=== PATIENT | female | born 1980 | race Two or more races ===

== ENCOUNTER 2025-01-07 09:52 | Outpatient (REF) | payer MEDICAID, SELFPAY ==
--- NOTE | ~2025-01-07 | XR_ITS ---
EXAMINATION: XR CERVICAL SPINE 2-3 VIEWS HISTORY: PAIN COMPARISON: There are no prior studies for comparison. FINDINGS: AP, lateral, swimmer's, and open-mouth odontoid views of the cervical spine are submitted. Osseous mineralization is normal. Seven cervical vertebral bodies are identified maintaining normal height and alignment without evidence of fracture or subluxation. The intervertebral disc spaces are preserved. The odontoid and lateral masses of C1 are intact. There is no prevertebral soft tissue swelling. XR/XR cervical spine 3V IMPRESSION: Unremarkable examination of the cervical spine. Electronically signed by: Dayron Yap MD 01/07/2025 10:39 AM EDT
--- OUTSIDE RECORDS SUMMARY | 2025-01-07 12:06 | XMS_ITS | Encounter Summary ---
Author Organization [employer] Address [address] [facility] [address] [place] [address] Care Team Providers Care Roll Panner Name Role Phone Unavailable Primary Care Provider Unavailabl e Reason for Visit * Reason Comments Hand Numbness Feet Numbness Encounter Details Date Type Department Care Team (Late st Contact Info) Description 01/07/2025 9:00 AM EDT Office Visit [facility] [address] [place], [place] [id number] Essential hypertension (Primary Dx); Palpitations; Chronic pain of right upper extremity; Paresthesia of right upper and lower extremity; Abnormal mammogram Social History Tobacco Use Types Packs/Day Years Used Date Smoking Tobacco: Never Assessed Comments Unknown Sex and Gender Information Value Date Recorded Sex Assigned at Female 01/07/2025 8:44 AM EDT Legal Sex Female 3:01 PM EST Gender Identity Female 01/07/2025 8:44 AM EDT Sexual Orientation Straight 01/07/2025 8: 44 AM EDT documented as of this encounter Last Filed Vital Signs Vital Sign Reading Time Taken Comments Blood Pressure 135/83 01/07/2025 8:53 AM EDT Pulse 102 01/07/2025 8:53 AM EDT Temperature 36.2 ??C (97.1 ??F) 01/07/2025 8:53 AM ED T Respiratory Rate 18 01/07/2025 8:53 AM EDT Oxygen Saturation 98% 01/07/2025 8:53 AM EDT Inhaled Oxygen Concentration - - Weight 74.8 kg (165 lb) 01/07/2025 8:53 AM EDT Height - - Body Mass Index - - documented in this encounter Plan of Treatment Scheduled Orders Name Type Priority Associated Diagnoses Orde r Schedule XR Cervical Spine 2-3 Views Imaging Routine Chronic pain of right upper extremity Expected: 01/07/2025, Expires: 01/07/2026 documented as of this encounter Visit Diagnoses Diagnosis Essential hypertension- Primary Unspecified essential hypertension Palpitations Chronic pain of right upper extremity Paresthesia of right upper and lower extremity Abnormal mammogram Abnormal mammogram, unspecified documented in this encounter
--- OUTSIDE RECORDS SUMMARY | 2025-01-07 12:06 | XMS_ITS | Clinical Summary ---
Author Organization [employer] Address [address] [place] [address] Care Team Providers Care Coiler Name Role Phone Unavailable Primary Care Provider Unavailabl e Allergies No known active allergies Medications gabapentin (Neurontin) 100 MG capsule Take 1 capsule (100 mg) by mouth at bedtime. 30 capsule 3 01/07/2025 6 Active zolpidem (Ambien) 10 MG tablet Take 1 tablet (10 mg) by mouth if needed at bedtime for sleep. 30 tablet 01/07/2025 5 Active baclofen (Lioresal) 10 MG tablet Take 1 tablet (10 mg) by mouth if needed at bedtime for muscle spasms. 30 tablet 3 01/07/2025 6 Active Encounters Date Type Department Care Team Description 01/07/2025 9:00 AM EDT Office Visit [facility] [address] [place] [address] Essential hypertension (Primary Dx); Palpitations; Chronic pain of right upper extremity; Paresthesia of right upper and lower extremity; Abnormal mammogram from Last 3 Months Social History Tobacco Use Types Packs/Day Years Used Date Smoking Tobacco: Never Assessed Comments Unknown Sex and Gender Information Value Date Recorded Sex Assigned at Female 01/07/2025 8:44 AM EDT Legal Sex Female 3:01 PM EST Gender Identity Female 01/07/2025 8:44 AM EDT Sexual Orientation Straight 01/07/2025 8: 44 AM EDT Last Filed Vital Signs Vital Sign Reading [...] - - Body Mass Index - - Plan of Treatment Health Maintenance Due Date Last Done Comments Depression Screening 1980 HIV Screening 1980 Lipid Panel 1980 SDOH Screening 1980 Alcohol/Substance Use Screening 1992 Tobacco Screening 1992 Family Planning (PISQ) 02/03/1995 Hepatitis C Screening 02/03/1998 DTaP/Tdap/Td Vaccines (1 - Tdap) 02/03/1999 Hepatitis B Vaccines (1 of 3 - 19+ 3-dose series) 02/03/1999 Pap Smear 02/03/2001 Cervical Cancer Screening 02/03/2010 HPV/Cotest 02/03/2010 Mammogram 2020 COVID-19 Vaccine ( - 2023-2 5 season) 2024 Influenza Vaccine (#1) 2024 Zoster Vaccines (1 of 2) 02/03/2030 RSV Patients and Pa tients Aged 60 years or older (1 - 1-dose 75+ series) 02/03/2055 HIB Vaccines Aged Out No longer eligi ble based on patient's age to complete this topic HPV Vaccines Aged Out No longer eligi ble based on patient's age to complete this topic Hepatitis A Vaccines Aged Out No long er eligible based on patient's age to complete this topic IPV Vaccines Aged Out No longer eligi ble based on patient's age to complete this topic Meningococcal Vaccine Aged Out No amy sally eligible based on patient's age to complete this topic Pneumococcal Vaccine: Pediat rics (0 to 5 Years) and At-Risk Patients (6 to 49) Years) Aged Out No longer eligible b ased on patient's age to complete this topic RSV under 20 months Aged Out No longe r eligible based on patient's age to complete this topic Rotavirus Vaccines Aged Out No longer eligible based on patient's age to complete this topic Insurance [facility] C3
== END 2025-01-07 09:53 | disposition home or self-care (01) ==
LOC: HO.HHCX 09:52
PROVIDERS: Visit Provider Family Medicine
DX: M79.601 Pain in right arm (principal); G89.29 Other chronic pain
CPT/HCPCS: 72040

== ENCOUNTER → 2025-01-07 09:54 | Outpatient (BNV) | payer MEDICAID, SELFPAY | PROVIDERS: Visit Provider Radiology Diagnostic Radiology | DX: M54.2 Cervicalgia (principal) | CPT/HCPCS: 72040 ==

== ENCOUNTER 2025-01-08 08:07 | Outpatient (REF) | payer MEDICAID, SELFPAY ==
--- OUTSIDE RECORDS SUMMARY | 2025-01-08 08:14 | XMS_ITS | Encounter Summary ---
Author Organization [employer] Address [address] [facility] [address] [place] [address] Care Team Providers Care Excel Vba Developer Name Role Phone Unavailable Primary Care Provider Unavailabl e Encounter Details Date Type Department Care Team (Late st Contact Info) Description 01/07/2025 Orders Only [facility] [address] [place] [address] Aileen Howard DO [address] [place] [address] Social History Tobacco Use Types Packs/Day Years Used Date Smoking Tobacco: Never Assessed Comments Unknown Sex and Gender Information Value Date Recorded Sex Assigned at Female 01/07/2025 8:44 AM EDT Legal Sex Female 3:01 PM EST Gender Identity Female 01/07/2025 8:44 AM EDT Sexual Orientation Straight 01/07/2025 8: 44 AM EDT documented as of this encounter Plan of Treatment Not on file documented as of this encounter Procedures Procedure Name Priority Date/Time Associated Diagnosis Comments XR CERVICAL SPINE 3V Routine 01/07/2025 9:54 AM EDT documented in this encounter Results * XR CERVICAL SPINE 3V (01/07/2025 9:54 AM EDT) Anatomical Region Laterality Modality Abdomen Radiographic Lynette ging 01/07/2025 9:54 AM EDT Narrative 01/07/2025 10:41 AM EDT ?[facility] ?[address] ?[place] [address] ?XRay Report ? Signed ? Patient: Menendez,Haideliz ?MR#: [id number] ?? [id number] ? : 1980 ?Acct:[id number] ? Age/Sex: 44 / F ?ADM Date: 03/13/25 ? Loc: HO.HHCX ? Attending Dr: Aileen Howard DO ? Ordering Physician: Aileen Howard DO ?? Date of Service: 01/07/25 ?? Procedure(s): XR cervical spine 3V ?? Accession Number(s): [id number] ? cc: Aileen Howard DO ? EXAMINATION: ??XR CERVICAL SPINE 2-3 VIEWS ? HISTORY: PAIN ? COMPARISON: There are no prior studies for comparison. ? FINDINGS: ??AP, lateral, swimmer's, and open-mouth odontoid views of the ?? cervical spine are submitted. ??Osseous mineralization is normal. ??Seven ?? cervical vertebral bodies are identified maintaining normal height and ?? alignment without evidence of fracture or subluxation. ??The ?? intervertebral disc spaces are preserved. ??The odontoid and lateral ?? masses of C1 are intact. ??There is no prevertebral soft tissue swelling. ? XR/XR cervical spine 3V ?? IMPRESSION: ?? Unremarkable examination of the cervical spine. ? Electronically signed by: ??Dayron Yap MD ??01/07/2025 10:39 AM EDT ? Dictated By: ?Dayron Yap MD ? Signed By: ?<Electronically signed by Dayron Yap MD in OV> ?01/07/25 1039 ? DD/ 0954 ? TD/TT: 01/07/25 1000 ? [employer] Team Member: ? Procedure Note Ronnie, Image - 01/07/[address] [address] XRay Report Signed Patient: Margaux MenendezMR#: [id number] : 1980Acct:[id number] Age/Sex: 44 / FADM Date: 01/07/25 Loc: HO.HHCX Attending Dr: Aileen Howard DO Ordering Physician: Aileen Howard DO Date of Service: 01/07/25 Procedure(s): XR cervical spine 3V Accession Number(s): [id number] cc: Aileen Howard DO EXAMINATION: XR CERVICAL SPINE 2-3 VIEWS HISTORY: PAIN COMPARISON: There are no prior studies for comparison. FINDINGS: AP, lateral, swimmer's, and open-mouth odontoid views of the cervical spine are submitted. Osseous mineralization is normal. Seven cervical vertebral bodies are identified maintaining normal height and alignment without evidence of fracture or subluxation. The intervertebral disc spaces are preserved. The odontoid and lateral masses of C1 are intact. There is no prevertebral soft tissue swelling. XR/XR cervical spine 3V IMPRESSION: Unremarkable examination of the cervical spine. Electronically signed by: Dayron Yap MD 01/07/2025 10:39 AM EDT Dictated By: Dayron Yap MD Signed By: <Electronically signed by Dayron Yap MD in OV> 01/07/25 1039 DD/ 0954 TD/TT: 01/07/25 1000 [employer] Team Member: us Aileen Howard DO IMG XR PROCEDURES Edited Res ult - Final documented in this encounter Visit Diagnoses Not on filedocumented in this encounter
--- OUTSIDE RECORDS SUMMARY | 2025-01-08 08:14 | XMS_ITS | Encounter Summary ---
Author Organization [employer] Address [address] [facility] 7t [place] [address] Care Team Providers Care Cupola Melter Name Role Phone Unavailable Primary Care Provider Unavailabl e Reason for Referral * Consultation (Urgent) - Pending Review Specialty Diagnoses / Procedures Referred By Codi littlejohn Referred To Contact Neurology Diagnoses Paresthesia of right upper and lower extremity Paresthesia of tongue Aileen Howard DO [address] [place] [address] Phone: tel: fax: Referral ID Status Reason Start Date Expiration Date Visits Requested Visits Authorized [id number] Pending Review Specialty Services Required 01/07/2025 01/07/2026 1 1 * Neurology (Routine) - Authorized Specialty Diagnoses / Procedures Referred By Codi littlejohn Referred To Contact Diagnoses Paresthesia of right upper and lower extremity Procedures Nerve conduction test Aileen Howard DO [address] [place] [address] Phone: tel: fax: [address] Phone: tel: fax: Referral ID Status Reason Start Date Expiration Date V isits Requested Visits Authorized [id number] Authorized 01/07/2025 01/07/2026 1 1 * Neurology (Routine) - Authorized Specialty Diagnoses / Procedures Referred By Codi littlejohn Referred To Contact Diagnoses Paresthesia of right upper and lower extremity Procedures EMG Aileen Howard DO [address] [place] [address] Phone: tel: fax: [address] Phone: tel: fax: Referral ID Status Reason Start Date Expiration Date V isits Requested Visits Authorized [id number] Authorized 01/07/2025 01/07/2026 1 1 * Imaging (Routine) - Authorized Specialty Diagnoses / Procedures Referred By Contac t Referred To Contact Radiology Diagnoses Abnormal mammogram Procedures BI Mammogram Diagnostic Tomosynthesis Bilateral Aileen Howard DO [address] [place] [address] Phone: tel: fax: [address] Phone: tel: fax: Referral ID Status Reason Start Date Expiration Date V isits Requested Visits Authorized [id number] Authorized 01/07/2025 01/07/2026 1 1 * Consultation (Routine) - Pending Review Specialty Diagnoses / Procedures Referred By Contac t Referred To Contact Vascular Surgery Diagnoses PVD (peripheral vascular disease) ([facility]) Aileen Howard DO [address] [place] [address] Phone: tel: fax: Referral ID Status Reason Start Date Expiration Date Visits Requested Visits Authorized [id number] Pending Review Specialty Services Required 01/07/2025 01/07/2026 1 1 * Cardiology (Routine) - Authorized Specialty Diagnoses / Procedures Referred By Contac t Referred To Contact Cardiology Diagnoses Palpitations Procedures Holter monitor - 24 hour Aileen Howard DO [address] [place] [address] Phone: tel: fax: [address] Phone: tel: fax: Referral ID Status Reason Start Date Expiration Date V isits Requested Visits Authorized [id number] Authorized 01/07/2025 01/07/2026 1 1 * Imaging (Routine) - Authorized Specialty Diagnoses / Procedures Referred By Contac t Referred To Contact Cardiology Diagnoses Palpitations Procedures Transthoracic Echo (TTE) Complete Aileen Howard DO [address] [place] [address] Phone: tel: fax: [address] Phone: tel: fax: Referral ID Status Reason Start Date Expiration Date Visits Requested Visits Authorized [id number] Authorized Perform Procedure 01/07/2025 01/07/2026 1 1 * Imaging (Routine) - Authorized Specialty Diagnoses / Procedures Referred By Contac t Referred To Contact Radiology Diagnoses Chronic pain of right upper extremity Procedures MR Cervical Spine w/o Contrast Aileen Howard DO [address] [place] [address] Phone: tel: fax: [address] Phone: tel: fax: Referral ID Status Reason Start Date Expiration Date V isits Requested Visits Authorized [id number] Authorized 01/07/2025 01/07/2026 1 1 * Imaging (Routine) - Authorized Specialty Diagnoses / Procedures Referred By Codi t Referred To Contact Radiology Diagnoses Paresthesia of right upper and lower extremity Paresthesia of tongue Procedures MR Brain w/o Contrast Aileen Howard DO [address] [place] [address] Phone: tel: fax: [facility] [address] [place] [address] Phone: tel: fax: Referral ID Status Reason Start Date Expiration Date V isits Requested Visits Authorized [id number] Authorized 01/07/2025 01/07/2026 1 1 Reason for Visit * Reason Comments Hand Numbness Feet Numbness Encounter Details Date Type Department Care Team (Late st Contact Info) Description 01/07/2025 9:00 AM EDT Office Visit [facility] [address] [place] [address] Essential hypertension (Primary Dx); Prediabetes; Palpitations; Chronic pain of right upper extremity; Paresthesia of right upper and lower extremity; Paresthesia of tongue; Abnormal mammogram; PVD (peripheral vascular disease) ([facility]) Social History Tobacco Use Types Packs/Day Years [...] Scheduled Orders Name Type Priority Associated Diagnoses Order Schedule XR Cervical Spine 2-3 Views Imaging Routine Chronic pain of right upper extremity Expected: 01/07/2025, Expires: 01/07/2026 T4, Free Lab Routine Essential hypertension Palpitations Chronic pain of right upper extremity Paresthesia of right upper and lower extremity Abnormal mammogram Expected: 01/07/2025 (Approximate), Expires: 01/07/2026 Vitamin D, 25-Hydroxy, Total, Immunoassay Lab Routine Essential hypertension Palpitations Chronic pain of right upper extremity Paresthesia of right upper and lower extremity Abnormal mammogram Expected: 01/07/2025 (Approximate), Expires: 01/07/2026 Lipid Panel, Standard Lab Routine Essential hypertension Palpitations Chronic pain of right upper extremity Paresthesia of right upper and lower extremity Abnormal mammogram Expected: 01/07/2025 (Approximate), Expires: 01/07/2026 TSH Lab Routine Essential hypertension Palpitations Chronic pain of right upper extremity Paresthesia of right upper and lower extremity Abnormal mammogram Expected: 01/07/2025 (Approximate), Expires: 01/07/2026 Hepatic Function Panel Lab Routine Essential hypertension Palpitations Chronic pain of right upper extremity Paresthesia of right upper and lower extremity Abnormal mammogram Expected: 01/07/2025 (Approximate), Expires: 01/07/2026 Hemoglobin A1c Lab Routine Essential hypertension Palpitations Chronic pain of right upper extremity Paresthesia of right upper and lower extremity Abnormal mammogram Expected: 01/07/2025 (Approximate), Expires: 01/07/2026 Basic Metabolic Panel Lab Routine Essential hypertension Palpitations Chronic pain of right upper extremity Paresthesia of right upper and lower extremity Abnormal mammogram Expected: 01/07/2025 (Approximate), Expires: 01/07/2026 Albumin, Random Urine W/Creatinine Lab Routine Essential hypertension Palpitations Chronic pain of right upper extremity Paresthesia of right upper and lower extremity Abnormal mammogram Expected: 01/07/2025 (Approximate), Expires: 01/07/2026 Hepatitis B surface antigen, EIA Lab Routine Essential hypertension Palpitations Chronic pain of right upper extremity Paresthesia of right upper and lower extremity Abnormal mammogram Expected: 01/07/2025 (Approximate), Expires: 01/07/2026 Chlamydia/N. Gonorrhoeae RNA, TMA, Urogenitial Microbiology Routine Essential hypertension Palpitations Chronic pain of right upper extremity Paresthesia of right upper and lower extremity Abnormal mammogram Ordered: 01/07/2025 HIV-1/2 Antigen and Antibodies, Fourth Generation, with Reflexes Lab Routine Essential hypertension Palpitations Chronic pain of right upper extremity Paresthesia of right upper and lower extremity Abnormal mammogram Expected: 01/07/2025 (Approximate), Expires: 01/07/2026 Hepatitis C Antibody with Reflex to HCV, RNA, Quantitative, Real-Time PCR Lab Routine Essential hypertension Palpitations Chronic pain of right upper extremity Paresthesia of right upper and lower extremity Abnormal mammogram Expected: 01/07/2025, Expires: 01/07/2026 RPR (Monitor) with Reflex to??Titer Lab Routine Essential hypertension Palpitations Chronic pain of right upper extremity Paresthesia of right upper and lower extremity Abnormal mammogram Expected: 01/07/2025, Expires: 01/07/2026 Hepatitis B Surface Antibody, Qualitative Lab Routine Essential hypertension Palpitations Chronic pain of right upper extremity Paresthesia of right upper and lower extremity Abnormal mammogram Expected: 01/07/2025 (Approximate), Expires: 01/07/2026 Hepatitis A Antibody, Total Lab Routine Essential hypertension Palpitations Chronic pain of right upper extremity Paresthesia of right upper and lower extremity Abnormal mammogram Expected: 01/07/2025 (Approximate), Expires: 01/07/2026 Hepatitis B Core Antibody, Total Lab Routine Essential hypertension Palpitations Chronic pain of right upper extremity Paresthesia of right upper and lower extremity Abnormal mammogram Expected: 01/07/2025 (Approximate), Expires: 01/07/2026 Vitamin B12 (Cobalamin) and Folate Panel, Serum Lab Routine Essential hypertension Palpitations Chronic pain of right upper extremity Paresthesia of right upper and lower extremity Abnormal mammogram Expected: 01/07/2025, Expires: 01/07/2026 Ferritin Lab Routine Essential hypertension Palpitations Chronic pain of right upper extremity Paresthesia of right upper and lower extremity Abnormal mammogram Expected: 01/07/2025, Expires: 01/07/2026 Iron And Total Iron Binding Capacity Lab Routine Essential hypertension Palpitations Chronic pain of right upper extremity Paresthesia of right upper and lower extremity Abnormal mammogram Expected: 01/07/2025, Expires: 01/07/2026 CBC auto differential Lab Routine Essential hypertension Palpitations Chronic pain of right upper extremity Paresthesia of right upper and lower extremity Abnormal mammogram Expected: 01/07/2025 (Approximate), Expires: 01/07/2026 MR Brain w/o Contrast Imaging Routine Paresthesia of right upper and lower extremity Paresthesia of tongue Expected: 01/07/2025, Expires: 01/07/2026 MR Cervical Spine w/o Contrast Imaging Routine Chronic pain of right upper extremity Expected: 01/07/2025, Expires: 01/07/2026 Transthoracic Echo (TTE) Complete Echocardiography Routine Palpitations Expected: 01/07/2025 (Approximate), Expires: 01/07/2027 Holter monitor - 24 hour Cardiac Services Routine Palpitations Expected: 01/07/2025 (Approximate), Expires: 01/07/2027 BI Mammogram Diagnostic Tomosynthesis Bilateral Imaging Routine Abnormal mammogram Expected: 01/07/2025, Expires: 03/09/2026 EMG Neurology Routine Paresthesia of right upper and lower extremity Expected: 01/07/2025 (Approximate), Expires: 01/07/2026 Nerve conduction test Neurology Routine Paresthesia of right upper and lower extremity Expected: 01/07/2025 (Approximate), Expires: 01/07/2026 Scheduled Referrals Name Type Priority Associated Diagnoses Orde r Schedule Referral to Vascular Surgery Outpatient Referral Routine PVD (peripheral vascular disease) ([facility]) Expected: 01/07/2025 (Approximate), Expires: 01/07/2026 Referral to Neurology Outpatient Referral Urgent Paresthesia of right upper and lower extremity Paresthesia of tongue Expected: 01/07/2025 (Approximate), Expires: 01/07/2026 documented as of this encounter Visit Diagnoses Diagnosis Essential hypertension- Primary Unspecified essential hypertension Prediabetes Other abnormal glucose Palpitations Chronic pain of right upper extremity Paresthesia of right upper and lower extremity Paresthesia of tongue Abnormal mammogram Abnormal mammogram, unspecified PVD (peripheral vascular disease) ([facility]) Unspecified peripheral vascular disease documented in this encounter
--- OUTSIDE RECORDS SUMMARY | 2025-01-08 08:14 | XMS_ITS | Clinical Summary ---
Author Organization [employer] Address [address] [facility] 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 30 tablet 3 01/07/2025 6 Active lisinopril-hydr oCHLOROthiazide (Zestoretic) 10-12.5 MG tablet Take 1 tablet by mouth Once per day. 30 tablet 3 01/07/2025 6 Active omeprazole OTC (PriLOSEC OTC) 20 MG EC tablet Take 1 tablet (20 mg) by mouth before breakfast. Do not crush, chew, or split. 30 tablet 3 01/07/2025 6 Active cilostazol (Pletal) 50 MG tablet Take 1 tablet (50 mg) by mouth 2 times daily. 60 tablet 3 01/07/2025 6 Active hydrOXYzine pamoate (Vistaril) 25 MG capsule Take 1 capsule (25 mg) by mouth if needed at bedtime for anxiety (insomnia) for up to 10 days. 30 capsule 3 01/07/2025 5 Active nabumetone (Relafen) 500 MG tablet Take 1 tablet (500 mg) by mouth if needed in the morning and at bedtime for mild pain. 60 tablet 1 01/07/2025 Active aspirin 81 MG chewable tablet Chew 1 tablet (81 mg) Once per day. 30 tablet 3 01/07/2025 Active atorvastatin (Lipitor) 40 MG tablet Take 1 tablet (40 mg) by mouth at bedtime. 30 tablet 3 01/07/2025 Active Encounters Date Type Department Care Team Description 01/07/2025 9:00 AM EDT Office Visit [facility] [address] [place] [id number] Essential hypertension (Primary Dx); Prediabetes; Palpitations; Chronic pain of right upper extremity; Paresthesia of right upper and lower extremity; Paresthesia of tongue; Abnormal mammogram; PVD (peripheral vascular disease) ([facility]) 01/07/2025 Orders Only [facility] [address] [place] [id number] Aileen Howard DO from Last 3 Months Social History Tobacco [...] Date Last Done Comments Depression Screening 1980 Diabetes: Hemoglobin A1C 1980 HIV Screening 1980 Lipid Panel 1980 SDOH Screening 1980 Alcohol/Substance Use Screening 1992 Tobacco Screening 1992 Family Planning (PISQ) 02/03/1995 Hepatitis C Screening 02/03/1998 DTaP/Tdap/Td Vaccines (1 - Tdap) 02/03/1999 Hepatitis B Vaccines (1 of 3 - 19+ 3-dose series) 02/03/1999 Pap Smear 02/03/2001 Cervical Cancer Screening 02/03/2010 HPV/Cotest 02/03/2010 Mammogram 2020 COVID-19 Vaccine (1 - 2023-2 5 season) 2024 Influenza Vaccine [...] on patient's age to complete this topic Procedures Procedure Name Priority Date/Time Associated Diagnosis Comments XR CERVICAL SPINE 3V Routine 01/07/2025 9:54 AM EDT from Last 3 Months Results * XR CERVICAL SPINE 3V (01/07/2025 9:54 AM EDT) Anatomical Region Laterality Modality Abdomen Radiographic Lynette ging 01/07/2025 9:54 AM EDT Narrative 01/07/2025 10:41 AM EDT ?[facility] [place] [facility] ?[address] ?[place] [address] ?XRay Report ? Signed ? Patient: Menendez,Haideliz ?MR#: [id number] ?? [id number] ? : 1980 ?Acct:[id number] ? Age/Sex: 44 / F ?ADM Date: 01/07/25 ? Loc: HO.HHCX ? Attending Dr: Aileen Howard DO ? Ordering Physician: Aileen Howard DO ?? Date of Service: 01/07/25 ?? Procedure(s): XR cervical spine 3V ?? Accession Number(s): [id number] ? cc: Aileen Howard DO ? EXAMINATION: [...] DD/ 0954 ? TD/TT: 01/07/25 1000 ? Loan Representative: ? Procedure Note Dimitri Trujillo - 01/07/[address] [address] XRay Report Signed Patient: Maureen Menendez#: [id number] : 1980Acct:[id number] Age/Sex: 44 / FADM Date: 01/07/25 Loc: HO.HHCX Attending Dr: Aileen Howard DO Ordering Physician: Aileen Howard DO Date of Service: 01/07/25 Procedure(s): XR cervical spine 3V Accession Number(s): [id number] cc: Aileen Howard DO EXAMINATION: XR CERVICAL [...] 01/07/25 1039 DD/ 0954 TD/TT: 01/07/25 1000 Loan Representative: Aileen Howard DO IMG XR PROCEDURES Edited Res ult - Final from Last 3 Months Insurance [facility] C3
[2025-01-08 11:23] LABS: MANUAL DIFF FLAG NO
[2025-01-08 11:39] LABS: Basophils Percent Auto 0.4 % (0-2); Eosinophils Absolute Auto 0.2 X10*3/uL (0.0-0.4); Eosinophils Percent Auto 1.4 % (0-4); Hemoglobin 12.3 g/dl (12.0-16.0); Imm Gran Abs Auto 0.04 X10*3/uL (0.00-0.03); Imm Gran Pct Auto 0.4 % (0.0-0.4); Lymphocytes Absolute Auto 1.7 X10*3/uL (1.2-4.9); Lymphocytes Percent Auto 16.2 % (20-40); Mean Corpuscular Hemoglobin 23.9 pg (27.0-33.0); Mean Corpuscular Volume 79.8 fL (80.0-98.0); Mean Platelet Volume 10.6 fL (9.4-12.3); Monocytes Absolute Auto 0.6 X10*3/uL (0.1-1.2); Neutrophils Absolute Auto 7.9 x10*3/uL (2.0-8.3); Neutrophils Percent Auto 75.6 % (45-73); Platelet Count 431 X10*3/uL (160-400); Red Blood Count 5.14 X10*6/uL (4.20-5.50); Red Cell Distribution Width 14.7 % (11.0-16.0); White Blood Count 10.4 X10*3/uL (4.8-10.8)
[2025-01-08 11:46] LABS: Estimated Average Glucose 126 mg/dL
[2025-01-08 12:09] LABS: Alanine Aminotransferase 20 U/L (0-31); Albumin Level 4.2 g/dL (3.5-5.0); Alkaline Phosphatase 91 U/L (39-117); Anion Gap 12 (12-20); Aspartate Amino Transferase 18 U/L (5-31); Bilirubin Direct 0.3 mg/dL (0.0-0.5); Bilirubin Total 0.9 mg/dL (0.0-1.0); Blood Urea Nitrogen 19 mg/dL (9-16); Calcium 9.3 mg/dL (8.4-10.2); Carbon Dioxide 28 mmol/L (22-29); Chloride 104 mmol/L (96-108); Cholesterol 200 mg/dL (<200); Estimated Glomerular Filt Rate > 60; Glucose Random 130 mg/dL (60-115); HDL Cholesterol 60 mg/dL (>40); Iron 45 mcg/dL (30-160); LDL Cholesterol Calculated 125 mg/dL (<100); Percent Iron Saturation 13 % (15-50); Potassium 4.2 mmol/L (3.3-5.1); Sodium 140 mmol/L (135-145); Total Iron Binding Capacity 340 mcg/dL (228-428); Total Protein 7.9 g/dL (6.5-8.0); Triglycerides 77 mg/dL (<150); Unsaturated Iron Binding 295 ug/dL
[2025-01-08 12:12] LABS: Ferritin 25 ng/mL (10-250); Free T4 (Free Thyroxine) 0.91 ng/dL (0.71-1.85); Thyroid Stimulating Hormone 2.39 uIU/mL (0.32-4.0); Vitamin D 25-OH Total 41.9 ng/mL (>30)
[2025-01-08 12:25] LABS: Folate 14.3 ng/mL (> or = 4.0); Vitamin B12 678 pg/mL (200-900)
[2025-01-08 12:26] LABS: Creatinine Urine 140.84 mg/dL; Microalbum/Creatinine Ratio Ur 9.2 ug/mg cr (<30)
[2025-01-08 12:33] LABS: HBS Num1 0.44 mIU/mL (0-7.99); HBsAGNum1 0.27 S/CO (0.00-0.99); Hepatitis B Surface Antigen Negative (Negative); ~Hepatitis B Surface Antibody NONREACTIVE (Nonreactive)
[2025-01-08 12:50] LABS: HBc Num1 0.12 S/CO (0.00-0.79); HIV AB/AG Nonreactive (Nonreactive); HIV Num 1 0.07 S/CO (0.00-0.99); Hepatitis B Core Antibody Nonreactive (Nonreactive); ~HepC Num1 0.07 S/CO (0.00-0.79); ~Hepatitis C Antibody Nonreactive (Nonreactive)
[2025-01-08 14:27] LABS: CT PCR NOT DETECTED (Not Detect.); NG PCR NOT DETECTED (Not Detect.)
[2025-01-10 14:28] LABS: RPR Rapid Plasma Reagin NON-REACTIVE (NON-REACTIVE)
[2025-01-13 08:50] LABS: Hepatitis A Antibody IgG Nonreactive (Nonreactive); ~Hepatitis A Antibody IgG 0.17 S/CO (0.00-0.99)
== END 2025-01-08 08:08 | disposition home or self-care (01) ==
LOC: HO.HHCL 08:07
PROVIDERS: Visit Provider Family Medicine
DX: I10 Essential (primary) hypertension (principal); R00.2 Palpitations; M79.601 Pain in right arm; G89.29 Other chronic pain; R20.2 Paresthesia of skin; R92.8 Other abnormal and inconclusive findings on diagnostic imaging of breast
CPT/HCPCS: 80048; 80061; 80076; 82043; 82306; 82570; 82607; 82728; 82746; 83036; 83540; 84439; 84443; 85025; 86592; 86704; 86706; 86708; 86803; 87340; 87389; 87491; 87591

== ENCOUNTER 2025-01-12 18:54 | Outpatient (REF) | payer MEDICAID, SELFPAY ==
--- NOTE | ~2025-01-12 | MR_ITS ---
EXAMINATION: MR BRAIN WITHOUT CONTRAST CLINICAL INFORMATION: Intermittent episodes of numbness right hemibody and tone paresthesia. COMPARISON: None available. TECHNIQUE: MRI of the brain was obtained using routine sequences without contrast. FINDINGS: No acute intracranial hemorrhage, mass effect, midline shift, hydrocephalus or herniation. Jeronimo-white matter differentiation is normal. No restricted diffusion. Posterior cranial fossa contents demonstrated no signal abnormality or gross masses flow-void signal within the main cerebral vessels is normal. Sellar/suprasellar region demonstrated no signal abnormality or masses. Midline structures are normal. Craniocervical junction is intact and normal. No signal abnormality or gross masses in the intraconal or extraconal compartments of the orbits. There is slight asymmetric prominent of the left lacrimal gland. Trace of fluid in the preseptal orbits, left greater than right. MR/MR head/brain wo con IMPRESSION: No acute or structural brain abnormality. Prominent lacrimal glands. These could be seen patients with sarcoidosis among other etiologies. Electronically signed by: Octaviano Dinh MD 01/13/2025 08:48 AM EDT
--- NOTE | ~2025-01-12 | MR_ITS ---
EXAMINATION: MR CERVICAL SPINE WITHOUT CONTRAST CLINICAL INFORMATION: Pain, weakness and numbness in the right hemibody. COMPARISON: None available. TECHNIQUE: MRI of the cervical spine was obtained using routine sequences without contrast. FINDINGS: Craniocervical junction is intact. Bone marrow signal is normal. The alignment is normal. The cervical spinal cord caliber and signal is normal. C2-3: No disc herniation. No neuroforamina stenosis. C3-4: No disc herniation. No neuroforamina stenosis. C4-5: No disc herniation. No neuroforamina stenosis. C5-6: No disc herniation. No neuroforamina stenosis. C6-7: No disc herniation. No neuroforamina stenosis. C7-T1: No disc herniation. No neuroforamina stenosis. T1-2: No disc herniation. No neuroforamina stenosis. No prevertebral compartment hematoma, mass or fluid collection. Flow-void signal within the main vessels is normal. Codominant vertebral arteries. No specific mild prominent cervical lymph nodes. MR/MR cervical spine wo con IMPRESSION: Normal MRI cervical spine. Nonspecific prominent cervical lymph nodes.. Electronically signed by: Octaviano Dinh MD 01/13/2025 08:53 AM EDT
--- OUTSIDE RECORDS SUMMARY | 2025-01-12 19:03 | XMS_ITS | Encounter Summary ---
Author Organization [employer] Address [address] [facility] [address] [place] [address] Care Team Providers Care Supervisor Frame Sample And Pattern Name Role Phone Unavailable Primary Care Provider Unavailabl e Reason for Visit * Reason Onset Date Comments New patient appointment 01/12/2025 Pt walke d in requesting a new patient appt . Pt was seen by in walk in on 01/07/2025 and states told her she is willing to take her as a new patient due to her conditions . Pt can be reached at [phone]. Encounter Details Date Type Department Care Team ([facility] Contact Info) Description 01/12/2025 Telephone [facility] [address] [place], [place] [phone] Aileen Howard DO [address] [place], [place] [phone] New patient appointment (Pt walked in requesting a new patient appt . Pt was seen by in walk in on 01/07/2025 and states told her she is willing to take her as a new patient due to her conditions . Pt can be reached at [phone].) Social History Tobacco Use Types Packs/Day Years Used Date Smoking Tobacco: Never Assessed Comments Unknown Sex and Gender Information Value Date Recorded Sex Assigned at Female 01/07/2025 8:44 AM EDT Legal Sex Female 3:01 PM EST Gender Identity Female 01/07/2025 8:44 AM EDT Sexual Orientation Straight 01/07/2025 8: 44 AM EDT documented as of this encounter Miscellaneous Notes * Telephone Encounter - Sarai Hinton - 01/12/2025 12:[address] Howard has zero availabilities. Patient will be contacted as soon as an appt becomes available. * Telephone Encounter - Fiordaliza Rachel - 01/12/2025 11:35 AM EDT Pt walked in requesting a new patient appt . Pt was seen by in walk in on 01/07/2025 and states told her she is willing to take her as a new patient due to her conditions . Pt can be reached at [phone]. documented in this encounter Plan of Treatment Not on file documented as of this encounter Visit Diagnoses Not on filedocumented in this encounter
--- OUTSIDE RECORDS SUMMARY | 2025-01-12 19:04 | XMS_ITS | Clinical Summary ---
Author Organization [employer] Address [address] [place] [address] Care Team Providers Care Floorperson Name Role Phone Unavailable Primary Care Provider [...] Encounters Date Type Department Care Team Description 01/12/2025 Telephone [facility] [address] [place] [phone] Aileen Howard DO New patient appointment (Pt walked in requesting a new patient appt . Pt was seen by in walk in on 01/07/2025 and states told her she is willing to take her as a new patient due to her conditions . Pt can be reached at [phone].) 01/07/2025 9:00 AM EDT Office Visit [facility] [address] [place] [phone] Essential hypertension (Primary Dx); Prediabetes; Palpitations; Chronic pain of right upper extremity; Paresthesia of right upper and lower extremity; Paresthesia of tongue; Abnormal mammogram; PVD (peripheral vascular disease) ([facility]) 01/07/2025 Orders Only [facility] [address] [place] [phone] Aileen Howard DO from Last 3 Months [...] Date Last Done Comments Depression Screening 1980 SDOH Screening 1980 Alcohol/Substance Use Screening 1992 Tobacco Screening 1992 Family Planning (PISQ) 02/03/1995 DTaP/Tdap/Td Vaccines (1 - Tdap) 02/03/1999 Hepatitis B Vaccines (1 of 3 - 19+ 3-dose series) 02/03/1999 Pap Smear 02/03/2001 Cervical Cancer Screening 02/03/2010 HPV/Cotest 02/03/2010 Mammogram 2020 COVID-19 Vaccine ( - 2023-2 5 season) 2024 Influenza Vaccine (#1) 2024 Diabetes: Hemoglobin A1C 01/08/2026 01/08/2025 Lipid Panel 01/08/2030 01/08/2025 Zoster Vaccines (1 of 2) 02/03/2030 RSV Patients and Pa tients Aged 60 years or older (1 - 1-dose 75+ series) 02/03/2055 HIV Screening Completed 01/08/2025 Hepatitis C Screening Completed 01/08/2025 HIB Vaccines Aged Out No longer eligi [...] to 49) Years) Aged Out No longer elig ible based on patient's age to complete this topic RSV under 20 months Aged Out No longe r eligible based on patient's age to complete this topic Rotavirus Vaccines Aged Out No longer eligible based on patient's age to complete this topic Procedures Procedure Name Priority Date/Time Associated Diagnosis Comments CBC WITH AUTO DIFFERENTIAL Routine 01/08/2025 8:10 AM EDT Essential hypertension Palpitations Chronic pain of right upper extremity Paresthesia of right upper and lower extremity Abnormal mammogram IRON AND TOTAL IRON BINDING CAPACITY Routine 01/08/2025 8:10 AM EDT Essential hypertension Palpitations Chronic pain of right upper extremity Paresthesia of right upper and lower extremity Abnormal mammogram FERRITIN Routine 01/08/2025 8:10 AM EDT Essential hypertension Palpitations Chronic pain of right upper extremity Paresthesia of right upper and lower extremity Abnormal mammogram VITAMIN B12/FOLATE, SERUM PANEL Routine 01/08/2025 8:10 AM EDT Essential hypertension Palpitations Chronic pain of right upper extremity Paresthesia of right upper and lower extremity Abnormal mammogram HEPATITIS B CORE AB TOTAL Routine 01/08/2025 8:10 AM EDT Essential hypertension Palpitations Chronic pain of right upper extremity Paresthesia of right upper and lower extremity Abnormal mammogram HEPATITIS B SURFACE ANTIBODY, QUALITATIVE Routine 01/08/2025 8:10 AM EDT Essential hypertension Palpitations Chronic pain of right upper extremity Paresthesia of right upper and lower extremity Abnormal mammogram RPR (MONITOR) W/REFL TITER Routine 01/08/2025 8:10 AM EDT Essential hypertension Palpitations Chronic pain of right upper extremity Paresthesia of right upper and lower extremity Abnormal mammogram HEPATITIS C AB W/REFL TO HCV RNA, QN, PCR Routine 01/08/2025 8:10 AM EDT Essential hypertension Palpitations Chronic pain of right upper extremity Paresthesia of right upper and lower extremity Abnormal mammogram HIV 1/2 ANTIGEN/ANTIBODY, FOURTH GENERATION W/RFL Routine 01/08/2025 8:10 AM EDT Essential hypertension Palpitations Chronic pain of right upper extremity Paresthesia of right upper and lower extremity Abnormal mammogram HEPATITIS B SURFACE ANTIGEN, EIA Routine 01/08/2025 8:10 AM EDT Essential hypertension Palpitations Chronic pain of right upper extremity Paresthesia of right upper and lower extremity Abnormal mammogram ALBUMIN, RANDOM URINE W/CREATININE Routine 01/08/2025 8:10 AM EDT Essential hypertension Palpitations Chronic pain of right upper extremity Paresthesia of right upper and lower extremity Abnormal mammogram BASIC METABOLIC PANEL Routine 01/08/2025 8:10 AM EDT Essential hypertension Palpitations Chronic pain of right upper extremity Paresthesia of right upper and lower extremity Abnormal mammogram HEMOGLOBIN A1C Routine 01/08/2025 8:10 AM EDT Essential hypertension Palpitations Chronic pain of right upper extremity Paresthesia of right upper and lower extremity Abnormal mammogram HEPATIC FUNCTION PANEL Routine 01/08/2025 8:10 AM EDT Essential hypertension Palpitations Chronic pain of right upper extremity Paresthesia of right upper and lower extremity Abnormal mammogram TSH Routine 01/08/2025 8:10 AM EDT Essential hypertension Palpitations Chronic pain of right upper extremity Paresthesia of right upper and lower extremity Abnormal mammogram LIPID PANEL, STANDARD Routine 01/08/2025 8:10 AM EDT Essential hypertension Palpitations Chronic pain of right upper extremity Paresthesia of right upper and lower extremity Abnormal mammogram VITAMIN D,25-OH,TOTAL,IA Routine 01/08/2025 8:10 AM EDT Essential hypertension Palpitations Chronic pain of right upper extremity Paresthesia of right upper and lower extremity Abnormal mammogram T4, FREE Routine 01/08/2025 8:10 AM EDT Essential hypertension Palpitations Chronic pain of right upper extremity Paresthesia of right upper and lower extremity Abnormal mammogram CHLAMYDIA/N. GONORRHOEAE RNA, TMA, UROGENITAL Routine 01/08/2025 8:10 AM EDT Essential hypertension Palpitations Chronic pain of right upper extremity Paresthesia of right upper and lower extremity Abnormal mammogram XR CERVICAL SPINE 3V Routine 01/07/2025 9:54 AM EDT from Last 3 Months Results * Vitamin D, 25-Hydroxy, Total, Immunoassay (01/08/2025 8:10 AM EDT) Vitamin D 25-OH Total 41.9 >30 ng/mL [facility] Comment: Health Based Reference Values*< 20 ??ng/mL ??[id number] ng/mL ??Insufficient> 30 ??ng/mL ??Sufficient*Britni FLORES. N Engl J Med. 2007;357:266-280There is no well-established upper level of normal vitamin Dlevels. Some laboratories use 50 ng/mL as an upper limit ofnormal. However, toxicity is patient-dependent and may occurat any level. Careful correlation with the patient'spresentation is necessary and, if there is concern forvitamin D toxicity, treatment should be consideredirrespective of the serum level.Care must be taken in interpreting Vitamin D results fromdifferent laboratories and methodologies. ??Published datademonstrated that results from patients undergoinghemodialysis may show a negative bias when tested withvarious automated 25-OH vitamin D assays when compared toLC- MS/MS.When testing samples from patients whose predominant form ofVitamin D is Vitamin D2, such as patients receiving VitaminD2 supplementation, results that are subtherapeutic shouldbe confirmed with another method such as LC-MS/MS. Blood Venous blood specimen / Unknown 01/08/2025 8:10 AM EDT 01/08/2025 11:15 AM EDT us Aileen Howard DO LAB BLOOD ORDERABLES Final R esult [facility] [address] [place] [phone] * Vitamin B12 (Cobalamin) and Folate Panel, Serum (01/08/2025 8:10 AM EDT) Vitamin B12 678 200 - 900 pg/mL [facility] Comment:NORMAL 200-900 PG/ML INDETERMINATE 160-199 PG/ML DEFICIENT < 160 PG/ML Folate 14.3 > or = 4.0 ng/mL [facility] Comment:Reference Values:> o r = 4.0 ng/mL< 4.0 ng/mL suggests folate deficiency Methotrexate, aminopterin and folinic acid(leucovorin) are chemotherapeutic agents whose molecularstructures are similar to folate; therefore, the Architectfolate assay cannot be used for patients using these drugs. Blood 01/08/2025 8:10 AM EDT 01/08/2025 11:15 AM EDT Aileen Howard LAB BLOOD ORDERABLES Final R esult Performing Organization Address [facility] de Phone Number [facility] [address] [place] [address] [phone] * Albumin, Random Urine W/Creatinine (01/08/2025 8:10 AM EDT) Creatinine, Urine 140.84 mg/dL [facility] Microalbumin Urine 13.0 mg/L [facility] Microalbum Creatinine Ratio Ur 9.2 <30 ug/mg cr [facility] Comment:Albumin/Creatinine R atio Reference Ranges: Normal: < 30 ug/mg creatinine Microalbuminuria: 30 - 300 ug/mg creatinineClinical Albuminuria: > 300 ug/mg creatinine Urine (Urine, Random) 01/08/2025 8:10 AM EDT 01/08/2025 11:14 AM EDT Aileen Howard DO LAB URINE ORDERABLES Final R esult Performing Organization Address [facility] Co de Phone Number [facility] [address] [place] [phone] * (ABNORMAL) CBC auto differential (01/08/2025 8:10 AM EDT) White Blood Count 10.4 4.8 - 10.8 X10*3/uL [facility] Red Blood Count 5.14 4.20 - 5.50 X10*6/uL [facility] Hemoglobin 12.3 12.0 - 16.0 g/dl [facility] Hematocrit 41.0 37.0 - 47.0 % [facility] Mean Corpuscular Volume 79.8(L) 80.0 - 98.0 fL [facility] Mean Corpuscular Hemoglobin 23.9(L) 27.0 - 33.0 pg [facility] Mean Corpuscular HGB Conc 30.0(L) 31.0 - 35.0 g/dl [facility] Red Cell Distribution Width 14.7 11.0 - 16.0 % [facility] Platelet Count 431(H) 160 - 400 X10*3/uL [facility] Mean Platelet Volume 10.6 9.4 - 12.3 fL [facility] Neutrophils Percent Auto 75.6(H) 45 - 73 % [facility] Imm Gran Pct Auto 0.4 0.0 - 0.4 % [facility] Lymphocytes Percent Auto 16.2(L) 20 - 40 % [facility] Monocytes Percent Auto 6.0 2 - 11 % [facility] Eosinophils Percent Auto 1.4 0 - 4 % [facility] Basophils Percent Auto 0.4 0 - 2 % [facility] NRBC Pct Auto 0.0 0.0 - 0.2 /100WBC [facility] Neutrophils Absolute Auto 7.9 2.0 - 8.3 x10*3/uL [facility] Imm Gran Abs Auto 0.04(H) 0.00 - 0.03 X10*3/uL [facility] Lymphocytes Absolute Auto 1.7 1.2 - 4.9 X10*3/uL [facility] Monocytes Absolute Auto 0.6 0.1 - 1.2 X10*3/uL [facility] Eosinophils Absolute Auto 0.2 0.0 - 0.4 X10*3/uL [facility] Basophils Absolute Auto 0.0 0.0 - 0.2 X10*3/uL [facility] NRBC Abs Auto 0.000 0.0 - 0.012 X10*3/uL [facility] Blood Venous blood specimen / Unknown 01/08/2025 8:10 AM EDT 01/08/2025 11:15 AM EDT Aileen Howard DO LAB BLOOD ORDERABLES Final R esult Performing Organization Address [facility]/ZIP Co de Phone Number [facility] [address] [place] [phone] * Hepatitis C Antibody with Reflex to HCV, RNA, Quantitative, Real-Time PCR (01/08/2025 8:10 AM EDT) Hepatitis C Antibody Nonreactive Nonreactive [facility] Comment:Antibodies to HCV no t detected; does not exclude early acuteHCV infection. Blood Venous blood specimen / Unknown 01/08/2025 8:10 AM EDT 01/08/2025 11:15 AM EDT Aileen Howard DO LAB BLOOD ORDERABLES Final R esult Performing Organization Address [facility] Co de Phone Number [facility] [address] [place] [phone] * (ABNORMAL) Iron And Total Iron Binding Capacity (01/08/2025 8:10 AM EDT) Iron 45 30 - 160 mcg/dL [facility] Total Iron Binding Capacity 340 228 - 428 mcg/dL [facility] Percent Iron Saturation 13(L) 15 - 50 % [facility] Unsaturated Iron Binding 295 ug/dL [facility] Blood Venous blood specimen / Unknown 01/08/2025 8:10 AM EDT 01/08/2025 11:15 AM EDT Aileen Howard DO LAB BLOOD ORDERABLES Final R esult Performing Organization Address [facility] Co de Phone Number [facility] [address] [place] [phone] * Chlamydia/N. Gonorrhoeae RNA, TMA, Urogenitial (01/08/2025 8:10 AM EDT) CT PCR NOT DETECTED Not Detect. [facility] Comment:A not detected test result does not exclude the possibilityof infection because test results can be affected byimproper specimen collection, concurrent antibiotic therapy,or the number of organisms in the specimen which may bebelow the sensitivity of the test. As with many diagnostictests, results from the Xpert CT/NG assay should beinterpreted in conjunction with other laboratory andclinical data available to the clinician.Xpert CT/NG performance has not been evaluated in patientsless than 14 years of age. The assay should not be used forthe evaluationof suspected sexual abuse or for other medico-legalindications. Additional testing is recommended in anycircumstance when false positive or false negative resultscould lead to adverse medical, social or psychologicalconsequences. NG PCR NOT DETECTED Not Detect. [facility] Comment:A not detected test result does not exclude the possibilityof infection because test results can be affected byimproper specimen collection, concurrent antibiotic therapy,or the number of organisms in the specimen which may bebelow the sensitivity of the test. As with many diagnostictests, results from the Xpert CT/NG assay should beinterpreted in conjunction with other laboratory andclinical data available to the clinician.Xpert CT/NG performance has not been evaluated in patientsless than 14 years of age. The assay should not be used forthe evaluationof suspected sexual abuse or for other medico-legalindications. Additional testing is recommended in anycircumstance when false positive or false negative resultscould lead to adverse medical, social or psychologicalconsequences. Urine Urethral structure / Unknown 01/08/2025 8:10 AM EDT 01/08/2025 11:14 AM EDT Narrative [facility] - 01/08/2025 2:27 PM EDT Urine us Aileen Howard DO LAB MICROBIOLOGY - GENERAL O RDERABLES Final Result [facility] [address] [place] [phone] * Hepatitis B surface antigen, EIA (01/08/2025 8:10 AM EDT) Hepatitis B Surface Ag Negative Negative [facility] Blood Venous blood specimen / Unknown 01/08/2025 8:10 AM EDT 01/08/2025 11:15 AM EDT Aileen Howard DO LAB BLOOD ORDERABLES Final R esult Performing Organization Address [facility] Co de Phone Number [facility] [address] [place] [phone] * Hepatitis B Core Antibody, Total (01/08/2025 8:10 AM EDT) Hepatitis B Core Antibody Nonreactive Nonreactive [facility] Blood Venous blood specimen / Unknown 01/08/2025 8:10 AM EDT 01/08/2025 11:15 AM EDT Aileen Howard DO LAB BLOOD ORDERABLES Final R esult Performing Organization Address [facility] de Phone Number [facility] [address] [place] [phone] * RPR (Monitor) with Reflex to??Titer (01/08/2025 8:10 AM EDT) RPR (Monitor) w/Refl Titer NON-REACTI VE NON-REACT BOOGIE [facility] Comment:THIS TEST WAS PERFOR MED AT:[facility] [place] [phone] MOSER MD Rapid Plasma Reagin Ab Titer TNP [facility] Blood Venous blood specimen / Unknown 01/08/2025 8:10 AM EDT 01/08/2025 11:15 AM EDT Aileen Howard DO LAB BLOOD ORDERABLES Final R esult Performing Organization Address [facility] Co de Phone Number [facility] [address] [place] [phone] * HIV-1/2 Antigen and Antibodies, Fourth Generation, with Reflexes (01/08/2025 8:10 AM EDT) HIV AB/AG Nonreactive Nonreactive [facility] Comment:HIV-1 p24 Ag and/or HIV-1/HIV-2 Ab not detected.A test result that is nonreactive does not exclude thepossibility of exposure to or infection with HIV-1 and/orHIV-2. Nonreactive results in this assay for individualswith prior exposure to HIV-1 and/or HIV-2 may be due toantigen and antibody levels that are below the limit ofdetection of this assay.The [employer] ([employer]) HIV Ag/Ab Combo assay result andsupplemental assay results should be interpreted inconjunction with the patient's clinical presentation,history and other laboratory results. If the results areinconsistent with clinical evidence, additional testing issuggested to confirm the result. Blood Venous blood specimen / Unknown 01/08/2025 8:10 AM EDT 01/08/2025 11:15 AM EDT Aileen Howard DO LAB BLOOD ORDERABLES Final R esult Performing Organization Address [facility] de Phone Number [facility] [address] [place] [phone] * Hepatitis B Surface Antibody, Qualitative (01/08/2025 8:10 AM EDT) ~Hepatitis B Surface Antibody NONREACTIVE Nonreactive [facility] Comment:Nonreactive: < 8.00 mIU/mL Blood Venous blood specimen / Unknown 01/08/2025 8:10 AM EDT 01/08/2025 11:15 AM EDT Aileen Howard DO LAB BLOOD ORDERABLES Final R esult Performing Organization Address [facility] Co de Phone Number [facility] [address] [place] [phone] * TSH (01/08/2025 8:10 AM EDT) Thyroid Stimulating Hormone 2.39 0.32 - 4.0 uIU/mL [facility] Comment:TSH 3rd Generation ( [facility]) Blood Venous blood specimen / Unknown 01/08/2025 8:10 AM EDT 01/08/2025 11:15 AM EDT Aileen Howard LAB BLOOD ORDERABLES Final R esult Performing Organization Address [facility]/ZIP Co de Phone Number [facility] [address] [place] [phone] * T4, Free (01/08/2025 8:10 AM EDT) Pathologist [facility] Free T4 (Free Thyroxine) 0.91 0.71 - 1.85 ng/dL [facility] Blood Venous blood specimen / Unknown 01/08/2025 8:10 AM EDT 01/08/2025 11:15 AM EDT Aileen Howard DO LAB BLOOD ORDERABLES Final R esult [facility] [address] [place] [phone] * Hemoglobin A1c (01/08/2025 8:10 AM EDT) Hemoglobin A1c 6.0 <6.0 % [facility] Comment:Hemoglobin A1C Refer ence Range Adults: 4.8 - 6.0 % Non diabetic: < 6.0 % Goal: < 7.0 %Additional Action Suggested: > 8.0 %Note: Hemoglobin A1c results are invalid for patients with abnormal amounts of HbF. Blood transfusions may impact the HbA1c concentration in the patient sample. Estimated Average Glucose 126 mg/dL [facility] Comment:eAG = Estimated ave rage glucose which is %A1C expressed asaverage glucose, using the formula of the Q6X-KddlgfrIqoonli Glucose study (ADAG), Diabetes Care, Vol.31,#8,May. 2007 Blood Venous blood specimen / Unknown 01/08/2025 8:10 AM EDT 01/08/2025 11:15 AM EDT Aileen Lee DO LAB BLOOD ORDERABLES Final R esult Performing Organization Address [facility]/ZIP Co de Phone Number [facility] [address] [place] [phone] * Ferritin (01/08/2025 8:10 AM EDT) Ferritin 25 10 - 250 ng/mL [facility] Blood Venous blood specimen / Unknown 01/08/2025 8:10 AM EDT 01/08/2025 11:15 AM EDT Aileen Lee DO LAB BLOOD ORDERABLES Final R esult Performing Organization Address [facility] Co de Phone Number [facility] [address] [place] [phone] * Hepatic Function Panel (01/08/2025 8:10 AM EDT) Bilirubin, Total 0.9 0.0 - 1.0 mg/dL [facility] Bilirubin, Direct 0.3 0.0 - 0.5 mg/dL [facility] Aspartate Amino Transferase 18 5 - 31 U/L [facility] Alanine Aminotransferase 20 0 - 31 U/L [facility] Total Protein 7.9 6.5 - 8.0 g/dL [facility] Albumin Level 4.2 3.5 - 5.0 g/dL [facility] Alkaline Phosphatase 91 39 - 117 U/L [facility] Blood Venous blood specimen / Unknown 01/08/2025 8:10 AM EDT 01/08/2025 11:15 AM EDT us Aileen Howard DO LAB BLOOD ORDERABLES Final R esult [facility] [address] [place] [phone] * (ABNORMAL) Lipid Panel, Standard (01/08/2025 8:10 AM EDT) Triglycerides 77 <150 mg/dL [facility] Comment:Desirable Triglyceri de: less than 150 mg/dLBorderline High Triglyceride 150-199 mg/dLHigh Triglyceride: 200-499 mg/dLVery High Triglyceride: greater than or equal to 5OO mg/dL Cholesterol 200(H) <200 mg/dL [facility] Comment:Desirable Cholestero l: less than 200 mg/dLBorderline High Cholesterol: 200-239 mg/dLHigh Cholesterol: greater than 239 mg/dL LDL Cholesterol Calculated 125(H) <100 mg/dL [facility] Comment:Desirable LDL: less than 100 mg/dLNear Optimal/Above Optimal LDL: 110- 129 mg/dLBorderline High LDL: 130-159 mg/dLHigh LDL: 160-189 mg/dLVery High LDL: greater than or equal to 190 mg/dL HDL Cholesterol 60 >40 mg/dL [facility] Comment:Desirable HDL: great er than 40 mg/dL Note: This HDL assay may give artificially low results in patients with liver disease. Blood Venous blood specimen / Unknown 01/08/2025 8:10 AM EDT 01/08/2025 11:15 AM EDT us Aileen Howard DO LAB BLOOD ORDERABLES Final R esult [facility] [address] [place] [phone] * (ABNORMAL) Basic Metabolic Panel (01/08/2025 8:10 AM EDT) Sodium 140 135 - 145 mmol/L [facility] Potassium 4.2 3.3 - 5.1 mmol/L [facility] Chloride 104 96 - 108 mmol/L [facility] Carbon Dioxide 28 22 - 29 mmol/L [facility] Anion Gap 12 12 - 20 [facility] Urea Nitrogen (BUN) 19(H) 9 - 16 mg/dL [facility] Creatinine, Serum 0.63 0.5 - 1.4 mg/dL [facility] Estimated Glomerular Filt Rate >60 [facility] Comment:Chronic Kidney Disea se: Estimated GFR < 60 mL/min/1.42x2Owbgjg Kidney Disease: Estimated GFR < 15 mL/min/1.73m2 Glucose 130(H) 60 - 115 mg/dL [facility] Calcium 9.3 8.4 - 10.2 mg/dL [facility] Blood Venous blood specimen / Unknown 01/08/2025 8:10 AM EDT 01/08/2025 11:15 AM EDT Aileen Howard DO LAB BLOOD ORDERABLES Final R esult [facility] [address] [place] [phone] [phone] * XR CERVICAL SPINE 3V (01/07/2025 9:54 AM EDT) Anatomical Region Laterality Modality Abdomen Radiographic Lynette ging 01/07/2025 9:54 AM EDT Narrative 01/07/2025 10:41 AM EDT ?[facility] ?[address] ?[place] [address] ?XRay Report ? Signed ? Patient: Menendez,Haideliz ?MR#: [id number] ?? [id number] ? : 1980 ?Acct:[id number] ? Age/Sex: 44 / F ?ADM Date: 03/13/25 ? Loc: HO.HHCX ? Attending Dr: Aileen Howard DO ? Ordering Physician: Aileen Howard DO ?? Date of Service: 01/07/25 ?? Procedure(s): XR cervical spine 3V ?? Accession Number(s): [id number] ? cc: Aileen Howard DO ? EXAMINATION: [...] DD/ 0954 ? TD/TT: 01/07/25 1000 ? Landscaping Specialist: ? Procedure Note Ronnie, Image - 01/07/2025 [place] [address] XRay Report Signed Patient: Maureen Menendez#: [id number] : 1980Acct:[id number] Age/Sex: 44 / FADM Date: 01/07/25 Loc: HO.HHCX Attending Dr: Aileen Howard DO Ordering Physician: Aileen Howard DO Date of Service: 01/07/25 Procedure(s): XR cervical spine 3V Accession Number(s): [id number] cc: Aileen Howard DO EXAMINATION: XR CERVICAL [...] Dayron Yap MD 01/07/2025 10:39 AM EDT RP Dictated By: Dayron Yap MD Signed By: <Electronically signed by Dayron Yap MD in OV> 01/07/25 1039 DD/ 0954 TD/TT: 01/07/25 1000 Landscaping Specialist: us Aileen Howard DO IMG XR PROCEDURES Edited Res ult - Final from Last 3 Months Insurance [facility] C3
--- OUTSIDE RECORDS SUMMARY | 2025-01-12 19:04 | XMS_ITS | Encounter Summary ---
Author Organization [employer] Address [address] [facility] [address] [place] [address] Care Team Providers Care Network Systems Operator Name Role Phone Unavailable Primary Care Provider Unavailabl e Encounter Details Date Type Department Care Team (Late st Contact Info) Description 01/07/2025 Orders Only [facility] [address] [place] [address] Aileen Howard DO [address] [place] [address] Social History Tobacco Use Types Packs/Day Years [...] AM EDT Narrative 01/07/2025 10:41 AM EDT ?[facility] ?[address] ?[place] [address] ?XRay Report ? Signed ? Patient: Menendez,Haideliz ?MR#: [id number] ?? [id number] ? : 1980 ?Acct:[id number] ? Age/Sex: 44 / F ?ADM Date: 03/13/25 ? Loc: HO.HHCX ? Attending Dr: Aileen Howard DO ? Ordering Physician: Aileen Howard DO ?? Date of Service: 01/07/25 ?? Procedure(s): XR cervical spine 3V ?? Accession Number(s): [id number] ? cc: Aileen Howard DO ? EXAMINATION: [...] DD/ 0954 ? TD/TT: 01/07/25 1000 ? Nutrition Specialist: ? Procedure Note Ronnie, Image - 01/07/[address] [address] XRay Report Signed Patient: Margaux MenendezMR#: [id number] : 1980Acct:[id number] Age/Sex: 44 / FADM Date: 01/07/25 Loc: HO.HHCX Attending Dr: Aileen Howard DO Ordering Physician: Aileen Howard DO Date of Service: 01/07/25 Procedure(s): XR cervical spine 3V Accession Number(s): [id number] cc: Aileen Howard DO EXAMINATION: XR CERVICAL [...] 01/07/25 1039 DD/ 0954 TD/TT: 01/07/25 1000 Nutrition Specialist: us Aileen Howard DO IMG XR PROCEDURES Edited Res ult - Final documented in this encounter Visit Diagnoses Not on filedocumented in this encounter
--- OUTSIDE RECORDS SUMMARY | 2025-01-12 19:04 | XMS_ITS | Encounter Summary ---
Author Organization [employer] Address [address] [facility] [address] [place] [address] Care Team Providers Care Directory Clerk Name Role Phone Unavailable Primary Care Provider Unavailabl e Reason for Referral * Consultation (Urgent) - Pending Review Specialty Diagnoses / Procedures Referred By Codi littlejohn Referred To Contact Neurology Diagnoses Paresthesia of right upper and lower extremity Paresthesia of tongue Aileen Howard DO [address] [place] [address] Phone: tel: fax: Referral ID Status Reason Start Date Expiration Date Visits Requested Visits Authorized [id number] Pending Review Specialty Services Required 01/07/2025 01/07/2026 1 1 * Neurology (Routine) - Authorized Specialty Diagnoses / Procedures Referred By Codi littlejohn Referred To Contact Diagnoses Paresthesia of right upper and lower extremity Procedures Nerve conduction test Aileen Howard DO [address] [place] [address] Phone: tel: fax: [address] Phone: tel: fax: Referral ID Status Reason Start Date Expiration Date V isits Requested Visits Authorized [id number] Authorized 01/07/2025 01/07/2026 1 1 * Neurology (Routine) - Authorized Specialty Diagnoses / Procedures Referred By Codi littlejohn Referred To Contact Diagnoses Paresthesia of right upper and lower extremity Procedures EMG Aileen Howard DO [address] [place] [address] Phone: tel: fax: [address] Phone: tel: fax: Referral ID Status Reason Start Date Expiration Date V isits Requested Visits Authorized [id number] Authorized 01/07/2025 01/07/2026 1 1 * Imaging (Routine) - Authorized Specialty Diagnoses / Procedures Referred By Contac t Referred To Contact Radiology Diagnoses Abnormal mammogram Procedures BI Mammogram Diagnostic Tomosynthesis Bilateral Aileen Howard DO [address] [place] [address] Phone: tel: fax: [address] Phone: tel: fax: Referral ID Status Reason Start Date Expiration Date V isits Requested Visits Authorized [id number] Authorized 01/07/2025 01/07/2026 1 1 * Consultation (Routine) - Pending Review Specialty Diagnoses / Procedures Referred By Contac t Referred To Contact Vascular Surgery Diagnoses PVD (peripheral vascular disease) ([facility]) Aileen Howard DO [address] [place] [address] Phone: tel: fax: Referral ID Status Reason Start Date Expiration Date Visits Requested Visits Authorized [id number] Pending Review Specialty Services Required 01/07/2025 01/07/2026 1 1 * Cardiology (Routine) - Authorized Specialty Diagnoses / Procedures Referred By Contac t Referred To Contact Cardiology Diagnoses Palpitations Procedures Holter monitor - 24 hour Aileen Howard DO [address] [place] [address] Phone: tel: fax: [address] Phone: tel: fax: Referral ID Status Reason Start Date Expiration Date V isits Requested Visits Authorized [id number] Authorized 01/07/2025 01/07/2026 1 1 * Imaging (Routine) - Authorized Specialty Diagnoses / Procedures Referred By Contac t Referred To Contact Cardiology Diagnoses Palpitations Procedures Transthoracic Echo (TTE) Complete Aileen Howard DO [address] [place] [address] Phone: tel: fax: [address] Phone: tel: fax: Referral ID Status Reason Start Date Expiration Date Visits Requested Visits Authorized [id number] Authorized Perform Procedure 01/07/2025 01/07/2026 1 1 * Imaging (Routine) - Authorized Specialty Diagnoses / Procedures Referred By Contac t Referred To Contact Radiology Diagnoses Chronic pain of right upper extremity Procedures MR Cervical Spine w/o Contrast Aileen Howard DO [address] [place] [address] Phone: tel: fax: [address] Phone: tel: fax: Referral ID Status Reason Start Date Expiration Date V isits Requested Visits Authorized [id number] Authorized 01/07/2025 01/07/2026 1 1 * Imaging (Routine) - Authorized Specialty Diagnoses / Procedures Referred By Codi t Referred To Contact Radiology Diagnoses Paresthesia of right upper and lower extremity Paresthesia of tongue Procedures MR Brain w/o Contrast Aileen Howard DO [address] [place] [address] Phone: tel: fax: [facility] [address] [place] [address] Phone: tel: fax: Referral ID Status Reason Start Date Expiration Date V isits Requested Visits Authorized [id number] Authorized 01/07/2025 01/07/2026 1 1 Reason for Visit * Reason Comments Hand Numbness Feet Numbness Encounter Details Date Type Department Care Team (Late st Contact Info) Description 01/07/2025 9:00 AM EDT Office Visit [facility] [address] [place] [address] Essential hypertension (Primary Dx); Prediabetes; Palpitations; Chronic pain of right upper extremity; Paresthesia of right upper and lower extremity; Paresthesia of tongue; Abnormal mammogram; PVD (peripheral vascular disease) ([facility]) Social History Tobacco Use Types Packs/Day Years [...] right upper extremity Expected: 01/07/2025, Expires: 01/07/2026 Hepatitis A Antibody, Total Lab [...] Outpatient Referral Routine PVD (peripheral vascular disease) ([facility]) Expected: 01/07/2025 (Approximate), Expires: 01/07/2026 Referral to Neurology Outpatient Referral Urgent Paresthesia of right upper and lower extremity Paresthesia of tongue Expected: 01/07/2025 (Approximate), Expires: 01/07/2026 documented as of this encounter Procedures Procedure Name Priority Date/Time Associated Diagnosis Comments VITAMIN D,25-OH,TOTAL,IA Routine 01/08/2025 8:10 AM EDT [...] right upper and lower extremity Abnormal mammogram CBC WITH AUTO DIFFERENTIAL Routine 01/08/2025 8:10 [...] right upper and lower extremity Abnormal mammogram documented in this encounter Results * (ABNORMAL) CBC auto differential (01/08/2025 8:10 AM EDT) White Blood Count 10.4 4.8 - 10.8 X10*3/uL [facility] Red Blood Count 5.14 4.20 - 5.50 X10*6/uL [facility] Hemoglobin 12.3 12.0 - 16.0 g/dl [facility] Hematocrit 41.0 37.0 - 47.0 % [facility] Mean Corpuscular Volume 79.8(L) 80.0 - 98.0 fL [facility] Mean Corpuscular Hemoglobin 23.9(L) 27.0 - 33.0 pg [facility] Mean Corpuscular HGB Conc 30.0(L) 31.0 - 35.0 g/dl [facility] Red Cell Distribution Width 14.7 11.0 - 16.0 % [facility] Platelet Count 431(H) 160 - 400 X10*3/uL [facility] Mean Platelet Volume 10.6 9.4 - 12.3 fL [facility] Neutrophils Percent Auto 75.6(H) 45 - 73 % [facility] Imm Gran Pct Auto 0.4 0.0 - 0.4 % [facility] Lymphocytes Percent Auto 16.2(L) 20 - 40 % [facility] Monocytes Percent Auto 6.0 2 - 11 % [facility] Eosinophils Percent Auto 1.4 0 - 4 % [facility] Basophils Percent Auto 0.4 0 - 2 % [facility] NRBC Pct Auto 0.0 0.0 - 0.2 /100WBC [facility] Neutrophils Absolute Auto 7.9 2.0 - 8.3 x10*3/uL [facility] Imm Gran Abs Auto 0.04(H) 0.00 - 0.03 X10*3/uL [facility] Lymphocytes Absolute Auto 1.7 1.2 - 4.9 X10*3/uL [facility] Monocytes Absolute Auto 0.6 0.1 - 1.2 X10*3/uL [facility] Eosinophils Absolute Auto 0.2 0.0 - 0.4 X10*3/uL [facility] Basophils Absolute Auto 0.0 0.0 - 0.2 X10*3/uL [facility] NRBC Abs Auto 0.000 0.0 - 0.012 X10*3/uL [facility] Blood Venous blood specimen / Unknown 01/08/2025 8:10 AM EDT 01/08/2025 11:15 AM EDT Aileen Howard DO LAB BLOOD ORDERABLES Final R esult Performing Organization Address [facility]/ZIP Co de Phone Number [facility] [address] [place] [phone] * (ABNORMAL) Iron And Total Iron Binding Capacity (01/08/2025 8:10 AM EDT) Iron 45 30 - 160 mcg/dL [facility] Total Iron Binding Capacity 340 228 - 428 mcg/dL [facility] Percent Iron Saturation 13(L) 15 - 50 % [facility] Unsaturated Iron Binding 295 ug/dL [facility] Blood Venous blood specimen / Unknown 01/08/2025 8:10 AM EDT 01/08/2025 11:15 AM EDT Aileen Howard DO LAB BLOOD ORDERABLES Final R esult Performing Organization Address [facility] Co de Phone Number [facility] [address] [place] [phone] * Ferritin (01/08/2025 8:10 AM EDT) Ferritin 25 10 - 250 ng/mL [facility] Blood Venous blood specimen / Unknown 01/08/2025 8:10 AM EDT 01/08/2025 11:15 AM EDT Aileen Howard DO LAB BLOOD ORDERABLES Final R esult Performing Organization Address [facility]/ZIP Co de Phone Number [facility] [address] [place] [phone] * Vitamin B12 (Cobalamin) and Folate Panel, Serum (01/08/2025 8:10 AM EDT) Pathologist [facility] Vitamin B12 678 200 - 900 pg/mL [facility] Comment:NORMAL 200-900 PG/ML INDETERMINATE 160-199 PG/ML DEFICIENT < 160 PG/ML Folate 14.3 > or = 4.0 ng/mL [facility] Comment:Reference Values:> o r = 4.0 ng/mL< 4.0 ng/mL suggests folate deficiency Methotrexate, aminopterin and folinic acid(leucovorin) are chemotherapeutic agents whose molecularstructures are similar to folate; therefore, the Architectfolate assay cannot be used for patients using these drugs. Blood 01/08/2025 8:10 AM EDT 01/08/2025 11:15 AM EDT Aileen Howard LAB BLOOD ORDERABLES Final R esult Performing Organization Address [facility]/ZIP Co de Phone Number [facility] [address] [place] [phone] * Hepatitis B Core Antibody, Total (01/08/2025 8:10 AM EDT) Pathologist [facility] Hepatitis B Core Antibody Nonreactive Nonreactive [facility] Blood Venous blood specimen / Unknown 01/08/2025 8:10 AM EDT 01/08/2025 11:15 AM EDT Aileen Howard LAB BLOOD ORDERABLES Final R esult Performing Organization Address [facility]/ZIP Co de Phone Number [facility] [address] [place] [phone] * Hepatitis B Surface Antibody, Qualitative (01/08/2025 8:10 AM EDT) Pathologist [facility] ~Hepatitis B Surface Antibody NONREACTIVE Nonreactive [facility] Comment:Nonreactive: < 8.00 mIU/mL Blood Venous blood specimen / Unknown 01/08/2025 8:10 AM EDT 01/08/2025 11:15 AM EDT Aileen Howard DO LAB BLOOD ORDERABLES Final R esult Performing Organization Address [facility]/ZIP Co de Phone Number [facility] [address] [place] [phone] * RPR (Monitor) with Reflex to??Titer (01/08/2025 8:10 AM EDT) RPR (Monitor) w/Refl Titer NON-REACTI VE NON-REACT BOOGIE [facility] Comment:THIS TEST WAS PERFOR MED AT:[facility] [place] [phone] MOSER MD Rapid Plasma Reagin Ab Titer TNP [facility] Blood Venous blood specimen / Unknown 01/08/2025 8:10 AM EDT 01/08/2025 11:15 AM EDT us Aileen Haquealejandraquan ANNA LAB BLOOD ORDERABLES Final R esult Performing Organization Address [facility] Co de Phone Number [facility] [address] [place] [address] [phone] * Hepatitis C Antibody with Reflex to HCV, RNA, Quantitative, Real-Time PCR (01/08/2025 8:10 AM EDT) Hepatitis C Antibody Nonreactive Nonreactive [facility] Comment:Antibodies to HCV no t detected; does not exclude early acuteHCV infection. Blood Venous blood specimen / Unknown 01/08/2025 8:10 AM EDT 01/08/2025 11:15 AM EDT Aileen Howard DO LAB BLOOD ORDERABLES Final R esult Performing Organization Address [facility]/ZIP Co de Phone Number [facility] [address] [place] [phone] [phone] * HIV-1/2 Antigen and Antibodies, Fourth Generation, with Reflexes (01/08/2025 8:10 AM EDT) [facility] HIV AB/AG Nonreactive Nonreactive [facility] Comment:HIV-1 p24 Ag and/or HIV-1/HIV-2 Ab not detected.A test result that is nonreactive does not exclude thepossibility of exposure to or infection with HIV-1 and/orHIV-2. Nonreactive results in this assay for individualswith prior exposure to HIV-1 and/or HIV-2 may be due toantigen and antibody levels that are below the limit ofdetection of this assay.The [employer] HIV Ag/Ab Combo assay result andsupplemental assay results should be interpreted inconjunction with the patient's clinical presentation,history and other laboratory results. If the results areinconsistent with clinical evidence, additional testing issuggested to confirm the result. Blood Venous blood specimen / Unknown 01/08/2025 8:10 AM EDT 01/08/2025 11:15 AM EDT us Aileen Howard DO LAB BLOOD ORDERABLES Final R esult [facility] [address] [place] [phone] * Chlamydia/N. Gonorrhoeae RNA, TMA, Urogenitial (01/08/2025 8:10 AM EDT) [facility] CT PCR NOT DETECTED Not Detect. [facility] Comment:A not detected test result does [...] psychologicalconsequences. NG PCR NOT DETECTED Not Detect. [facility] Comment:A not detected test result does [...] AM EDT 01/08/2025 11:14 AM EDT Narrative [facility] - 01/08/2025 2:27 PM EDT Urine us Aileen Howard DO LAB MICROBIOLOGY - GENERAL O RDERABLES Final Result Performing Organization Address [facility]/ZIP Co de Phone Number [facility] [address] [place] [phone] * Hepatitis B surface antigen, EIA (01/08/2025 8:10 AM EDT) Hepatitis B Surface Ag Negative Negative [facility] Blood Venous blood specimen / Unknown 01/08/2025 8:10 AM EDT 01/08/2025 11:15 AM EDT us Aileen Howard DO LAB BLOOD ORDERABLES Final R esult Performing Organization Address [facility] Co de Phone Number [facility] [address] [place] [phone] * Albumin, Random Urine W/Creatinine (01/08/2025 8:10 AM EDT) Creatinine, Urine 140.84 mg/dL [facility] Microalbumin Urine 13.0 mg/L [facility] Microalbum Creatinine Ratio Ur 9.2 <30 ug/mg cr [facility] Comment:Albumin/Creatinine R atio Reference Ranges: Normal: < 30 ug/mg creatinine Microalbuminuria: 30 - 300 ug/mg creatinineClinical Albuminuria: > 300 ug/mg creatinine Urine (Urine, Random) 01/08/2025 8:10 AM EDT 01/08/2025 11:14 AM EDT Aileen Howard DO LAB URINE ORDERABLES Final R esult [facility] [address] [place] [phone] * (ABNORMAL) Basic Metabolic Panel (01/08/2025 8:10 AM EDT) Sodium 140 135 - 145 mmol/L [facility] Potassium 4.2 3.3 - 5.1 mmol/L [facility] Chloride 104 96 - 108 mmol/L [facility] Carbon Dioxide 28 22 - 29 mmol/L [facility] Anion Gap 12 12 - 20 [facility] Urea Nitrogen (BUN) 19(H) 9 - 16 mg/dL [facility] Creatinine, Serum 0.63 0.5 - 1.4 mg/dL [facility] Estimated Glomerular Filt Rate >60 [facility] Comment:Chronic Kidney Disea se: Estimated GFR < 60 mL/min/1.24n6Xbngow Kidney Disease: Estimated GFR < 15 mL/min/1.73m2 Glucose 130(H) 60 - 115 mg/dL [facility] Calcium 9.3 8.4 - 10.2 mg/dL [facility] Blood Venous blood specimen / Unknown 01/08/2025 8:10 AM EDT 01/08/2025 11:15 AM EDT us Aileen Lee DO LAB BLOOD ORDERABLES Final R esult Performing Organization Address [facility]/ZIP Co de Phone Number [facility] [address] [place] [phone] * Hemoglobin A1c (01/08/2025 8:10 AM EDT) Hemoglobin A1c 6.0 <6.0 % [facility] Comment:Hemoglobin A1C Refer ence Range Adults: 4.8 - 6.0 % Non diabetic: < 6.0 % Goal: < 7.0 %Additional Action Suggested: > 8.0 %Note: Hemoglobin A1c results are invalid for patients with abnormal amounts of HbF. Blood transfusions may impact the HbA1c concentration in the patient sample. Estimated Average Glucose 126 mg/dL [facility] Comment:eAG = Estimated ave rage glucose which is %A1C expressed asaverage glucose, using the formula of the X1C-Wijsvhc[place] Glucose study (ADAG), Diabetes Care, Vol.31,#8,2007 Blood Venous blood specimen / Unknown 01/08/2025 8:10 AM EDT 01/08/2025 11:15 AM EDT us Aileen Lee DO LAB BLOOD ORDERABLES Final R esult Performing Organization Address [facility]/ZIP Co de Phone Number [facility] [address] [place] [phone] * Hepatic Function Panel (01/08/2025 8:10 AM EDT) Bilirubin, Total 0.9 0.0 - 1.0 mg/dL [facility] Bilirubin, Direct 0.3 0.0 - 0.5 mg/dL [facility] Aspartate Amino Transferase 18 5 - 31 U/L [facility] Alanine Aminotransferase 20 0 - 31 U/L [facility] Total Protein 7.9 6.5 - 8.0 g/dL [facility] Albumin Level 4.2 3.5 - 5.0 g/dL [facility] Alkaline Phosphatase 91 39 - 117 U/L [facility] Blood Venous blood specimen / Unknown 01/08/2025 8:10 AM EDT 01/08/2025 11:15 AM EDT Aileen Lee DO LAB BLOOD ORDERABLES Final R esult Performing Organization Address [facility]/ZIP Co de Phone Number [facility] [address] [place] [phone] * TSH (01/08/2025 8:10 AM EDT) Thyroid Stimulating Hormone 2.39 0.32 - 4.0 uIU/mL [facility] Comment:TSH 3rd Generation ( [facility]) Blood Venous blood specimen / Unknown 01/08/2025 8:10 AM EDT 01/08/2025 11:15 AM EDT Aileen Lee DO LAB BLOOD ORDERABLES Final R esult Performing Organization Address [facility]/ZIP Co de Phone Number [facility] [address] [place] [phone] * (ABNORMAL) Lipid Panel, Standard (01/08/2025 8:10 AM EDT) Triglycerides 77 <150 mg/dL [facility] Comment:Desirable Triglyceri de: less than 150 mg/dLBorderline High Triglyceride 150-199 mg/dLHigh Triglyceride: 200-499 mg/dLVery High Triglyceride: greater than or equal to 5OO mg/dL Cholesterol 200(H) <200 mg/dL [facility] Comment:Desirable Cholestero l: less than 200 mg/dLBorderline High Cholesterol: 200-239 mg/dLHigh Cholesterol: greater than 239 mg/dL LDL Cholesterol Calculated 125(H) <100 mg/dL [facility] Comment:Desirable LDL: less than 100 mg/dLNear Optimal/Above Optimal LDL: 110- 129 mg/dLBorderline High LDL: 130-159 mg/dLHigh LDL: 160-189 mg/dLVery High LDL: greater than or equal to 190 mg/dL HDL Cholesterol 60 >40 mg/dL [facility] Comment:Desirable HDL: great er than 40 mg/dL Note: This HDL assay may give artificially low results in patients with liver disease. Blood Venous blood specimen / Unknown 01/08/2025 8:10 AM EDT 01/08/2025 11:15 AM EDT us Aileen Howard DO LAB BLOOD ORDERABLES Final R esult [facility] [address] [place] [phone] * Vitamin D, 25-Hydroxy, Total, Immunoassay (01/08/2025 8:10 AM EDT) Vitamin D 25-OH Total 41.9 >30 ng/mL [facility] Comment: Health Based Reference Values*< 20 ??ng/mL ??Npnpouxrp40-64 ng/mL ??Insufficient> 30 ??ng/mL ??Sufficient*Britni FLORES. N [...] ORDERABLES Final R esult Performing Organization Address [facility]/ZIP Co de Phone Number [facility] [address] [place] [phone] * T4, Free (01/08/2025 8:10 AM EDT) Free T4 (Free Thyroxine) 0.91 0.71 - 1.85 ng/dL [facility] Blood Venous blood specimen / Unknown 01/08/2025 8:10 AM EDT 01/08/2025 11:15 AM EDT Aileen Lee DO LAB BLOOD ORDERABLES Final R esult Performing Organization Address [facility]/ZIP Co de Phone Number [facility] [address] [place] [phone] documented in this encounter Visit Diagnoses Diagnosis Essential hypertension- Primary Unspecified essential hypertension Prediabetes Other abnormal glucose Palpitations Chronic pain of right upper extremity Paresthesia of right upper and lower extremity Paresthesia of tongue Abnormal mammogram Abnormal mammogram, unspecified PVD (peripheral vascular disease) (CMS/HCC) Unspecified peripheral vascular disease documented in this encounter
== END 2025-01-12 18:55 | disposition home or self-care (01) ==
LOC: HO.MRI 18:54
PROVIDERS: PCP Family Medicine; Visit Provider Family Medicine
DX: M79.601 Pain in right arm (principal); G89.29 Other chronic pain; R20.2 Paresthesia of skin; R44.8 Other symptoms and signs involving general sensations and perceptions
CPT/HCPCS: 70551; 72141

== ENCOUNTER → 2025-01-12 19:14 | Outpatient (BNV) | payer MEDICAID, SELFPAY | PROVIDERS: PCP Family Medicine; Visit Provider Radiology Diagnostic Radiology | DX: R59.0 Localized enlarged lymph nodes (principal); R20.2 Paresthesia of skin | CPT/HCPCS: 70551; 72141 ==

== ENCOUNTER 2025-01-13 08:07 | Outpatient (REF) | payer MEDICAID, SELFPAY ==
--- NOTE | ~2025-01-13 | MM_ITS ---
EXAMINATION: MM SCREENING DIGITAL BREAST TOMOSYNTHESIS, BILATERAL CLINICAL INFORMATION: Screening. Asymptomatic. Right breast pain. Patient states she was being followed in [place] for the right breast but cannot obtain prior images. COMPARISON: Mammography: New baseline. TECHNIQUE: Digital breast mammography with tomosynthesis is performed in both the craniocaudal and mediolateral oblique views along with computer-aided detection (CAD). FINDINGS: There are scattered areas of fibroglandular density (ACR BI-RADS breast composition Category b). Left: Focal asymmetry retroareolar region anterior depth. No suspicious calcifications or other abnormal findings. Right: Asymmetry retroareolar region anterior to middle depth on CC view. No suspicious calcifications or other abnormal findings. MM/MM tomosynthesis screening BI IMPRESSION: Additional imaging is recommended Patient describes right breast pain. Recommend clinical evaluation and if there is focal pain or if deemed clinically significant diagnostic imaging can be performed. ASSESSMENT: BI-RADS BI-RADS 0 - Incomplete: Needs additional Imaging. RECOMMENDATION: 1. Additional views of the bilateral breasts. 2. Targeted ultrasound if warranted after review of the additional views. 3. Radiology department staff will contact the patient for additional imaging. Additional Imaging required This examination should not preclude the clinical evaluation of a suspicious palpable abnormality. This patient's information was entered into a reminder system with a target due date for their next mammogram. Electronically signed by: Belle Araiza DO 01/13/2025 11:29 AM EDT
== END 2025-01-13 08:08 | disposition home or self-care (01) ==
LOC: HO.MAMMO 08:07
PROVIDERS: PCP Family Medicine; Visit Provider Family Medicine
DX: Z12.31 Encounter for screening mammogram for malignant neoplasm of breast (principal)
CPT/HCPCS: 77063; 77067

== ENCOUNTER → 2025-01-13 08:45 | Outpatient (BNV) | payer MEDICAID, SELFPAY | PROVIDERS: PCP Family Medicine; Visit Provider Internal Medicine | DX: Z12.31 Encounter for screening mammogram for malignant neoplasm of breast (principal) | CPT/HCPCS: 77063; 77067 ==

== ENCOUNTER → 2025-01-18 07:46 | Outpatient (REF) | payer MEDICAID, SELFPAY ==
--- NOTE | 2025-01-18 07:54 | CA_ITS ---
Transthoracic Echocardiogram Patient (Last, First, Middle): Margaux Menendez, Gender: Female Date of : 1980 Age: 44 Procedure Date: 01/18/2025 Procedure Type: Transthoracic Echocardiogram Location: OP Height: 157.48 cm Weight: 71.22 kg BSA: 1.72 m2 Heart Rate: bpm BP: 122 / 80 mmHg Machine Technician: Referring MD: Aileen Howard DO Block Placer: Flo Campos MD Symptoms: PALPS R00.2 Study Quality: Good ECG Rhythm: Sinus Conclusions: - Normal study Findings Left Ventricle Normal left ventricular size, thickness, and systolic function. The visually estimated ejection fraction is between 60-65%. Diastolic function is normal for age. Right Ventricle Normal right ventricular cavity size and systolic function. Atria Both atria are normal in size. There is no evidence of interatrial shunt. Aortic Valve Normal aortic valve structure and function. There is no aortic valve stenosis. There is no aortic valve regurgitation. Mitral Valve Normal mitral valve structure and function. There is trace mitral valve regurgitation. There is no mitral valve stenosis. Pulmonic Valve The pulmonic valve is likely normal. There is trace pulmonic valve regurgitation. Tricuspid Valve Normal tricuspid valve structure. There is trace tricuspid valve regurgitation. The right ventricular systolic pressure is normal. The right ventricular systolic pressure is 13 mmHg. Normal right atrial pressure. There is no evidence of pulmonary hypertension. Great Vessels All visible segments of the aorta are normal in size. The pulmonary artery was not well visualized. Venous The inferior vena cava is normal in size and collapses greater than 50% with inspiration. Pericardium/Pleural There is no evidence of pericardial effusion. Prior Study Comparison No prior study available for comparison. Measurements 2D Linear Measurements IVSd: 1.05 0.6-0.9/0.6-1.0 cm LVIDd: 4.05 3.9-5.3/4.2-5.9 cm LVIDd Index: 2.35 2.4-3.2/2.2-3.1 cm/m2 LVIDs: 2.50 2.0-3.6 cm LVPWd: 1.05 0.7-1.1 cm Ao Root: 2.70 2.1-3.5 cm LA Diam: 3.40 2.7-3.8/3.0-4.0 cm LAIDs Index: 1.98 1.5-2.3 cm/m2 LV Mass: 172.83 67-162/88-224 g LV Mass Index: 100.48 43-95/49-115 g/m2 LVOT Diam: 2.10 3.0+(-)1.3 cm 2D Systolic Function EF 4C: 59.60 >55% EF 2C: 63.50 >55% EF BiP: 61.50 >55% Mitral Valve MV Pk E: 0.67 MV PK A: 0.53 MV Decel Time: 216.00 E/A: 1.30 E'Lateral: 11.00 E'Medial: 8.05 E/E' Med: 8.40 E/E' Lat: 6.10 PHT: 63.00 MVA PHT: 3.49 Decel [place]: 3.11 LVOT LVOT Pk Dell: 0.84 LVOT Mn Dell: 0.56 LVOT VTI: 0.17 LVOT Pk Grad: 3.00 LVOT Mn Grad: 1.00 LVOT Diam: 2.10 LVOT Area: 3.46 Diastolic Function MV Pk E: 0.67 MV Pk A: 0.53 E/A: 1.30 E'Medial: 8.05 E/E' Med: 8.40 E' Laterial: 11.00 E/E' Lat: 6.10 Right Ventricle TAPSE (mm): 23.00 TVS' Dell: 10.00 Tricuspid Valve TR Pk Dell: 1.59 TR Pk Grad: 10.00 RA Press: 3.00 RVSP: 13.00 Great Vessels Aorta Ao Root-2D: 2.70 2.0-3.7 cm Ao Asc: 2.60 2.1-3.4 cm Pulmonary Valve PV Pk Dell: 1.10 Peak PV Grad: 5.00 Updated in Other Vendor System with Status of Final Flo Campos MD electronically signed on 01/18/2025 12:08:22 PM with status of Final
== END ==
LOC: HO.CARD 07:46
PROVIDERS: PCP Family Medicine; Visit Provider Family Medicine
DX: R00.2 Palpitations (principal)
CPT/HCPCS: 93225; 93306

== ENCOUNTER → 2025-01-18 07:54 | Outpatient (BNV) | payer MEDICAID, SELFPAY | PROVIDERS: PCP Family Medicine; Visit Provider Internal Medicine Cardiovascular Disease | DX: R00.2 Palpitations (principal) | CPT/HCPCS: 93306 ==

== ENCOUNTER 2025-01-29 08:16 | Outpatient (REF) | payer MEDICAID, SELFPAY ==
--- OUTSIDE RECORDS SUMMARY | 2025-01-29 08:31 | XMS_ITS | Encounter Summary ---
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 Name Role Phone ShabnamAileen beltre Primary Care Provider Encounter Details Date Type Department Care Team (Latest Contact Info) Description 01/27/2025 Travel Social History Tobacco Use Types Packs/Day Years Used Date Smoking Tobacco: Some Days Cigarettes Smokeless Tobacco: Never Alcohol Use Standard Drinks/Week Comments Never 0 (1 standard drink = 0.6 oz pur e alcohol) Depression Answer Date Recorded Patient Health Questionnaire-9 Score 8 01/27/2025 Patient Health Questionnaire-9 Score 8 01/27/2025 Last PHQ-9: Questionnaire Data Not on file 0 01/27/2025 Housing Stability Answer Date Recorded What is your housing situation today? I do not have housing (Staying with others, in a hotel, in a jail, living outside on the street, on a beach, in a car, or in a park 01/27/[address] you li ve. Do you have problems with any of the following? None of the above 01/27/2025 Food Insecurity Answer Date Recorded Within the past 12 months, y ou worried that your food would run out before you got money to buy more: Often true 01/27/2025 Within the past 12 months,th e food you bought just didn't last and you didn't have enough money to get more: Often true 11/2024 Transportation Answer Date Recorded In the past 12 months, has l ack of transportation kept you from medical appts, meetings, work or from getting things needed for daily living? No 01/27/2025 Utilities Answer Date Recorded In the past 12 months, has t he electric, gas, oil or water company threatened to shut off services in your home? No 01/27/2025 Depression Answer Date Recorded Patient Health Questionnaire-2 Score 1 01/27/2025 Internet Access Answer Date Recorded Internet Access Q1 Yes 01/27/2025 Internet Access Q2 Not on file 01/27/2025 Comments Unknown Sex and Gender Information Value Date Recorded Sex Assigned at Female 01/07/2025 8:44 AM EDT Legal Sex Female 3:01 PM EST Gender Identity Female 01/07/2025 8:44 AM EDT Sexual Orientation Straight 01/07/2025 8: 44 AM EDT documented as of this encounter Plan of Treatment Not on file documented as of this encounter Visit Diagnoses Not on filedocumented in this encounter Additional Health Concerns Assessment Noted Time PHQ-9 Depression Total Score: 8 01/28/20 25 12:38 PM EDT documented as of this encounter Care Teams Machining And Assembly Supervisor Relationship Specialty Start Date End Date Aileen Howard DO [address] [place] [address] PCP - General Family Medicine 01/18/25 documented as of this encounter
--- OUTSIDE RECORDS SUMMARY | 2025-01-29 08:31 | XMS_ITS | Clinical Summary ---
Author Organization [employer] Address [address] [place] [address] Care Team Providers Care Applications Administrator Name Role Phone ShabnamAileen beltre Primary Care Provider [phone] Allergies No known active allergies Medications * This document contains information received from the source organization and may not represent a complete record from that organization. zolpidem (Ambien) 10 MG tablet Take 1 tablet (10 mg) by mouth if needed at bedtime for sleep. 30 tablet 5 02/07/20 25 Active baclofen (Lioresal) 10 MG tablet Take 1 tablet (10 mg) by mouth if needed at bedtime for muscle spasms. 30 tablet 3 5 01/08/20 26 Active lisinopril-hydr oCHLOROthiazide (Zestoretic) 10-12.5 MG tablet Take 1 tablet by mouth Once per day. 30 tablet 3 5 01/08/20 26 Active omeprazole OTC (PriLOSEC OTC) 20 MG EC tablet Take 1 tablet (20 mg) by mouth before breakfast. Do not crush, chew, or split. 30 tablet 3 5 01/08/20 26 Active cilostazol (Pletal) 50 MG tablet Take 1 tablet (50 mg) by mouth 2 times daily. 60 tablet 3 5 01/08/20 26 Active nabumetone (Relafen) 500 MG tablet Take 1 tablet (500 mg) by mouth if needed in the morning and at bedtime for mild pain. 60 tablet 1 5 01/08/20 26 Active aspirin 81 MG chewable tablet Chew 1 tablet (81 mg) Once per day. 30 tablet 3 5 01/08/20 26 Active atorvastatin (Lipitor) 40 MG tablet Take 1 tablet (40 mg) by mouth at bedtime. 30 tablet 3 5 01/08/20 26 Active Blood Glucose Monitoring Suppl (FreeStyle [place] Lite) w/Device kitIndications: Prediabetes Use to test blood sugar one time daily 1 kit 5 Active Alcohol Swabs 70 % padsIndications :Prediabetes Use to test blood sugar one time daily 100 each 3 5 Active Lancets miscIndications :Prediabetes Use to test blood sugar one time daily 100 each 3 5 Active FREESTYLE LITE test stripIndication s:Prediabetes Use to test blood sugar one time daily 100 each 3 5 01/20/20 26 Active gabapentin (Neurontin) 300 MG capsule Take 1 capsule (300 mg) by mouth 3 times daily. 90 capsule 11 5 01/28/20 26 Active hydrOXYzine pamoate (Vistaril) 50 MG capsule Take 1 capsule (50 mg) by mouth every 6 (six) hours if needed for anxiety. 40 capsule 1 5 01/28/20 26 Active melatonin 5 MG tablet Take 1-2 tablets (5-10 mg) by mouth if needed at bedtime (insomnia). 60 tablet 3 5 Active acetaminophen (Tylenol 8 Hour) 650 MG ER tablet Take 1 tablet (650 mg) by mouth every 8 (eight) hours if needed for mild pain or headaches. Do not crush, chew, or split. 40 tablet 1 5 02/27/20 25 Active gabapentin (Neurontin) 100 MG capsule Take 1 capsule (100 mg) by mouth at bedtime. 30 capsule 3 5 01/28/20 25 Discontinu ed(Dose adjustment ) hydrOXYzine pamoate (Vistaril) 25 MG capsule Take 1 capsule (25 mg) by mouth if needed at bedtime for anxiety (insomnia) for up to 10 days. 30 capsule 3 5 01/28/20 Discontinu ed(Dose adjustment ) Active Problems Problem Noted Date Diagnosed Date Essential hypertension 01/27/2025 Peripheral vascular disease 01/27/2025 Prediabetes 01/27/2025 Anxiety 01/27/2025 Chronic pain of right upper extremity 01/27/2025 Encounters * This document contains information received from the source organization and may not represent a complete record from that organization. Date Type Department Care Team Description 01/27/2025 11:15 AM EDT Office Visit [address] [address] Aileen Howard DO Essential hypertension (Primary Dx); Peripheral vascular disease (CMS/HCC); Prediabetes; Palpitations; Chronic pain of right upper extremity; Paresthesia of right arm and leg; Abnormal mammogram; Paresthesia of tongue; Anxiety; Daily headache; Abnormal brain MRI 01/27/2025 Patient Outreach [address] [address] Aileen Howard DO Care Coordination ([facility] outreach for SDOH PT-1 and food needs-referral completed /) 01/27/2025 Travel 01/27/2025 Population Health Risk Score [facility] () Department [address] [place] [phone] Provider, Population Health Generic 01/18/[address] [address] Aileen Howard DO Prediabetes 01/12/[address] [address] Aileen Howard DO New patient appointment (Pt walked in requesting a new patient appt . Pt was seen by in walk in on 01/07/2025 and states told her she is willing to take her as a new patient due to her conditions . Pt can be reached at [phone].) 01/07/2025 9:00 AM EDT Office Visit [facility] [address] [place] [phone] Aileen Howard DO Essential hypertension (Primary Dx); Prediabetes; Palpitations; Chronic pain of right upper extremity; Paresthesia of right upper and lower extremity; Paresthesia of tongue; Abnormal mammogram; PVD (peripheral vascular disease) (CMS/HCC) 01/07/2025 Orders Only [address] [place] [address] Aileen Howard DO from Last 3 Months Social History Tobacco Use Types Packs/Day Years Used Date Smoking Tobacco: Some Days Cigarettes Smokeless Tobacco: Never Tobacco Cessation:Ready to Q uit: Not Asked; Counseling Given: Not Answered Alcohol Use Standard Drinks/Week Comments Never 0 [...] with others, in a hotel, in a intermediate, living outside on the street, on a [...] Sign Reading Time Taken Comments Blood Pressure 115/57 01/27/2025 11:13 AM EDT Pulse 82 01/27/2025 11:13 AM EDT Temperature 36.4 ??C (97.5 ??F) 01/27/2025 1 1:13 AM EDT Respiratory Rate 20 01/27/2025 11:1 3 AM EDT Oxygen Saturation 100% 01/27/2025 11: 13 AM EDT Inhaled Oxygen Concentration - - Weight 74.8 kg (164 lb 12.8 oz) 025 11:13 AM EDT Height - - Body Mass Index - - Plan of Treatment Health Maintenance Due Date Last Done Comments Alcohol/Substance Use Screening 1992 Family Planning (PISQ) 02/03/1995 DTaP/Tdap/Td Vaccines (1 - Tdap) 02/03/1999 Hepatitis B Vaccines (1 of 3 - 19+ 3-dose series) 02/03/1999 Pneumococcal Vaccine: Pediatrics (0 to 5 Years) and At-Risk Patients (6 to 49) Years) (1 of 2 - PCV) 02/03/1999 Pap Smear 02/03/2001 Cervical Cancer Screening 02/03/2010 HPV/Cotest 02/03/2010 COVID-19 Vaccine ( - 2023-2 5 season) 2024 Influenza Vaccine (#1) 2024 Diabetes: Hemoglobin A1C 01/08/2026 01/08/2025 Depression Screening 01/27/2026 01/27/2025, 01/27/2025 SDOH Screening 01/27/2026 01/27/2025 Tobacco Screening 01/27/2026 01/27/2025 Mammogram 01/13/2027 01/13/2025 Lipid Panel 01/08/2030 01/08/2025 Zoster Vaccines (1 of 2) 02/03/2030 RSV Patients and Patients Aged 60 years or older (1 - [...] Procedure Name Priority Date/Time Associated Diagnosis Comments BI MAMMOGRAM SCREENING TOMOSYNTHESIS BILATERAL Routine 01/13/2025 8:45 AM EDT MR CERVICAL SPINE WO CONTRAST Routine 01/12/2025 7:30 PM EDT Chronic pain of right upper extremity MR BRAIN WO CONTRAST Routine 01/12/2025 7:14 PM EDT Paresthesia of right upper and lower extremity Paresthesia of tongue CBC WITH AUTO DIFFERENTIAL Routine 01/08/2025 8:10 [...] upper and lower extremity Abnormal mammogram HEPATITIS A ANTIBODY, TOTAL Routine 01/08/2025 8:10 AM EDT Essential [...] extremity Abnormal mammogram HEPATIC FUNCTION PANEL Routine 8:10 AM EDT Essential hypertension Palpitations Chronic [...] EDT from Last 3 Months Results * BI Mammogram Screening Tomosynthesis Bilateral (01/13/2025 8:45 AM EDT) Anatomical Region Laterality Modality Breast Bilateral Mammography 01/13/2025 8:45 AM EDT Narrative 01/13/2025 11:32 AM EDT ? [facility] ? [address] ?[place] [address] ? Mammography Report ? Signed ? Patient: Menendez,Haideliz ?MR#: [id number] ?? [id number] ? : 1980 ?Acct:[id number] ? Age/Sex: 44 / F ?ADM Date: 03/19/25 ? Loc: HO.MAMMO ? Attending Dr: Aileen Howard DO ? Ordering Physician: Aileen Howard DO ?Results: 0I ?? ncomplete: Needs Additional Imaging Evaluation ? Date of Service: 01/13/25 ?Follow Up: Additional Imagi ?? ng ? Procedure(s): MM tomosynthesis screening BI ?? Accession Number(s): [id number] ? cc: Aileen Howadr DO ? EXAMINATION: ?? MM SCREENING DIGITAL BREAST TOMOSYNTHESIS, BILATERAL ? CLINICAL INFORMATION: ? Screening. Asymptomatic. ??Right breast pain. Patient states she was ?? being followed in [place] for the right breast but cannot obtain ?? prior images. ? COMPARISON: ?? Mammography: New baseline. ? TECHNIQUE: ?? Digital breast mammography with tomosynthesis is performed in both the ?? craniocaudal and mediolateral oblique views along with computer-aided ?? detection (CAD). ? FINDINGS: ?? There are scattered areas of fibroglandular density (ACR BI-RADS breast ?? composition Category b). ?? Left: ?? Focal asymmetry retroareolar region anterior depth. ?? No suspicious calcifications or other abnormal findings. ? Right: ?? Asymmetry retroareolar region anterior to middle depth on CC view. ?? No suspicious calcifications or other abnormal findings. ? MM/MM tomosynthesis screening BI ?? IMPRESSION: ?? Additional imaging is recommended ? Patient describes right breast pain. Recommend clinical evaluation and ?? if there is focal pain or if deemed clinically significant diagnostic ?? imaging can be performed. ? ASSESSMENT: ? BI-RADS BI-RADS 0 - Incomplete: Needs additional Imaging. ? RECOMMENDATION: ?? 1. Additional views of the bilateral breasts. ?? 2. Targeted ultrasound if warranted after review of the additional ?? views. ?? 3. Radiology department staff will contact the patient for additional ?? imaging. ? Additional Imaging required ? This examination should not preclude the clinical evaluation of a ?? suspicious palpable abnormality. ? This patient's information was entered into a reminder system with a ?? target due date for their next mammogram. ? Electronically signed by: ??Belle Araiza DO ??01/13/2025 11:29 AM EDT ? Dictated By: ?Belle Araiza DO ? Signed By: ?<Electronically signed by Belle Araiza, DO in OV> ? 01/13/25 1129 ? DD/ 0845 ? TD/TT: 01/13/25 0917 ? Bar Helper: ? Procedure Note Donotiváninterpreter, Image - 01/13/2025 [place] [facility] [address] [place] [address] Mammography Report Signed Patient: Margaux MenendezMR#: [id number] : 1980Acct:[id number] Age/Sex: 44 / FADM Date: 01/13/25 Loc: HO.MAMMO Attending Dr: Aileen Howard DO Ordering Physician: Aileen Howardults: 0I ncomplete: Needs Additional Imaging Evaluation Date of Service: 01/13/25Follow Up: Additional Imagi ng Procedure(s): MM tomosynthesis screening BI Accession Number(s): [id number] cc: Aileen Howard DO EXAMINATION: MM SCREENING DIGITAL BREAST TOMOSYNTHESIS, BILATERAL CLINICAL INFORMATION: Screening. Asymptomatic. Right breast pain. Patient states she was being followed in [place] for the right breast but cannot obtain prior images. COMPARISON: Mammography: New baseline. TECHNIQUE: Digital breast mammography with tomosynthesis is performed in both the craniocaudal and mediolateral oblique views along with computer-aided detection (CAD). FINDINGS: There are scattered areas of fibroglandular density (ACR BI-RADS breast composition Category b). Left: Focal asymmetry retroareolar region anterior depth. No suspicious calcifications or other abnormal findings. Right: Asymmetry retroareolar region anterior to middle depth on CC view. No suspicious calcifications or other abnormal findings. MM/MM tomosynthesis screening BI IMPRESSION: Additional imaging is recommended Patient describes right breast pain. Recommend clinical evaluation and if there is focal pain or if deemed clinically significant diagnostic imaging can be performed. ASSESSMENT: BI-RADS BI-RADS 0 - Incomplete: Needs additional Imaging. RECOMMENDATION: 1. Additional views of the bilateral breasts. 2. Targeted ultrasound if warranted after review of the additional views. 3. Radiology department staff will contact the patient for additional imaging. Additional Imaging required This examination should not preclude the clinical evaluation of a suspicious palpable abnormality. This patient's information was entered into a reminder system with a target due date for their next mammogram. Electronically signed by: Belle Araiza DO 01/13/2025 11:29 AM EDT Dictated By: Belle Araiza DO Signed By: <Electronically signed by Belle Araiza DO in OV> 01/13/25 1129 DD/ 0845 TD/TT: 01/13/25 0917 Bar Helper: Aileen Howard DO IMG BI PROCEDURES Final Resu lt * MR Cervical Spine w/o Contrast (01/12/2025 7:30 PM EDT) Anatomical Region Laterality Modality Spine, C-spine Magnetic Resonan ce 01/12/2025 7:30 PM EDT Narrative 01/13/2025 8:56 AM EDT ? [facility] ?[address] ?[place] [address] ? Magnetic Resonance Report ? Signed ? Patient: Menendez,Haideliz ?MR#: [id number] ?? [id number] ? : 1980 ?Acct:[id number] ? Age/Sex: 44 / F ?ADM Date: 03/18/25 ? Loc: HO.MRI ? Attending Dr: Aileen Howard DO ? Ordering Physician: Aileen Howard DO ?? Date of Service: 01/12/25 ?? Procedure(s): MR cervical spine wo con ?? Accession Number(s): [id number] ? cc: Aileen Howard DO ? EXAMINATION: ?? MR CERVICAL SPINE WITHOUT CONTRAST ? CLINICAL INFORMATION: ?? Pain, weakness and numbness in the right hemibody. ? COMPARISON: ?? None available. ? TECHNIQUE: ?? MRI of the cervical spine was obtained using routine sequences without ?? contrast. ? FINDINGS: ?? Craniocervical junction is intact. ?? Bone marrow signal is normal. ?? The alignment is normal. ?? The cervical spinal cord caliber and signal is normal. ? C2-3: ?? No disc herniation. No neuroforamina stenosis. ? C3-4: ?? No disc herniation. No neuroforamina stenosis. ? C4-5: ?? No disc herniation. No neuroforamina stenosis. ? C5-6: ?? No disc herniation. No neuroforamina stenosis. ? C6-7: ?? No disc herniation. No neuroforamina stenosis. ? C7-T1: ?? No disc herniation. No neuroforamina stenosis. ? T1-2: ?? No disc herniation. No neuroforamina stenosis. ? No prevertebral compartment hematoma, mass or fluid collection. ?? Flow-void signal within the main vessels is normal. Codominant ?? vertebral arteries. No specific mild prominent cervical lymph nodes. ? MR/MR cervical spine wo con ?? IMPRESSION: ?? Normal MRI cervical spine. ?? Nonspecific prominent cervical lymph nodes.. ? Electronically signed by: ??Octaviano Dinh MD ??01/13/2025 08:53 AM ?? EDT ? Dictated By: ?Octaviano Matt MD ? Signed By: ?<Electronically signed by Octaviano Blancas MD in OV> ? 01/13/25 0853 ? DD/ 1930 ? TD/TT: 01/12/252000 ? Bar Helper: ? Procedure Note Dimitri Trujillo - 01/13/[address] [address] Magnetic Resonance Report Signed Patient: Margaux Menendez#: [id number] : 1980Acct:[id number] Age/Sex: 44 / FADM Date: 01/12/25 Loc: HO.MRI Attending Dr: Aileen Howard DO Ordering Physician: Aileen Howard DO Date of Service: 01/12/25 Procedure(s): MR cervical spine wo con Accession Number(s): [id number] cc: Aileen Howard DO EXAMINATION: MR CERVICAL SPINE WITHOUT CONTRAST CLINICAL INFORMATION: Pain, weakness and numbness in the right hemibody. COMPARISON: None available. TECHNIQUE: MRI of the cervical spine was obtained using routine sequences without contrast. FINDINGS: Craniocervical junction is intact. Bone marrow signal is normal. The alignment is normal. The cervical spinal cord caliber and signal is normal. C2-3: No disc herniation. No neuroforamina stenosis. C3-4: No disc herniation. No neuroforamina stenosis. C4-5: No disc herniation. No neuroforamina stenosis. C5-6: No disc herniation. No neuroforamina stenosis. C6-7: No disc herniation. No neuroforamina stenosis. C7-T1: No disc herniation. No neuroforamina stenosis. T1-2: No disc herniation. No neuroforamina stenosis. No prevertebral compartment hematoma, mass or fluid collection. Flow-void signal within the main vessels is normal. Codominant vertebral arteries. No specific mild prominent cervical lymph nodes. MR/MR cervical spine wo con IMPRESSION: Normal MRI cervical spine. Nonspecific prominent cervical lymph nodes.. Electronically signed by: Octaviano Dinh MD 01/13/2025 08:53 AM EDT Dictated By: Octaviano Matt MD Signed By: <Electronically signed by Octaviano Blancas MDin OV> 01/13/2553 DD/ 29 TD/TT: 01/12/252000 Bar Helper: us Aileen Howard DO IMG MRI PROCEDURES Final Res ult * MR Brain w/o Contrast (01/12/2025 7:14 PM EDT) Anatomical Region Laterality Modality Brain Magnetic Resonan ce 01/12/2025 7:14 PM EDT Narrative 01/13/2025 8:51 AM EDT ? [facility] ?[address] ?[place], [place] [address] ? Magnetic Resonance Report ? Signed ? Patient: Menendez,Haideliz ?MR#: [id number] ?? [id number] ? : 1980 ?Acct:[id number] ? Age/Sex: 44 / F ?ADM Date: 01/12/25 ? Loc: HO.MRI ? Attending Dr: Aileen Howard DO ? Ordering Physician: Aileen Howard DO ?? Date of Service: 01/12/25 ?? Procedure(s): MR head/brain wo con ?? Accession Number(s): [id number] ? cc: Aileen Howard DO ? EXAMINATION: ?? MR BRAIN WITHOUT CONTRAST ? CLINICAL INFORMATION: ?? Intermittent episodes of numbness right hemibody and tone paresthesia. ? COMPARISON: ?? None available. ? TECHNIQUE: ?? MRI of the brain was obtained using routine sequences without contrast. ? FINDINGS: ?? No acute intracranial hemorrhage, mass effect, midline shift, ?? hydrocephalus or herniation. ?? Jeronimo-white matter differentiation is normal. ?? No restricted diffusion. ?? Posterior cranial fossa contents demonstrated no signal abnormality or ?? gross masses flow-void signal within the main cerebral vessels is ?? normal. ?? Sellar/suprasellar region demonstrated no signal abnormality or masses. ?? Midline structures are normal. ?? Craniocervical junction is intact and normal. ?? No signal abnormality or gross masses in the intraconal or extraconal ?? compartments of the orbits. There is slight asymmetric prominent of the ?? left lacrimal gland. Trace of fluid in the preseptal orbits, left ?? greater than right. ? MR/MR head/brain wo con ?? IMPRESSION: ?? No acute or structural brain abnormality. ?? Prominent lacrimal glands. These could be seen patients with ?? sarcoidosis among other etiologies. ? Electronically signed by: ??Octaviano Dinh MD ??01/13/2025 08:48 AM ?? EDT RP ? Dictated By: ?Octaviano Matt MD ? Signed By: ?<Electronically signed by Octaviano Blancas MD in OV> ? 01/13/25 0848 ? DD/ 13 ? TD/TT: 03/18/25 1944 ? Bar Helper: ? Procedure Note Donotiváninterpreter, Image - 01/13/2025 [place] [address] Magnetic Resonance Report Signed Patient: Margaux MenendezMR#: [id number] : 1980Acct:[id number] Age/Sex: 44 / FADM Date: 01/12/25 Loc: HO.MRI Attending Dr: Aileen Howard DO Ordering Physician: Aileen Howard DO Date of Service: 01/12/25 Procedure(s): MR head/brain wo con Accession Number(s): [id number] cc: Aileen Howard DO EXAMINATION: MR BRAIN WITHOUT CONTRAST CLINICAL INFORMATION: Intermittent episodes of numbness right hemibody and tone paresthesia. COMPARISON: None available. TECHNIQUE: MRI of the brain was obtained using routine sequences without contrast. FINDINGS: No acute intracranial hemorrhage, mass effect, midline shift, hydrocephalus or herniation. Jeronimo-white matter differentiation is normal. No restricted diffusion. Posterior cranial fossa contents demonstrated no signal abnormality or gross masses flow-void signal within the main cerebral vessels is normal. Sellar/suprasellar region demonstrated no signal abnormality or masses. Midline structures are normal. Craniocervical junction is intact and normal. No signal abnormality or gross masses in the intraconal or extraconal compartments of the orbits. There is slight asymmetric prominent of the left lacrimal gland. Trace of fluid in the preseptal orbits, left greater than right. MR/MR head/brain wo con IMPRESSION: No acute or structural brain abnormality. Prominent lacrimal glands. These could be seen patients with sarcoidosis among other etiologies. Electronically signed by: Octaviano Dinh MD 01/13/2025 08:48 AM EDT Dictated By: Octaviano Matt MD Signed By: <Electronically signed by Octaviano Blancas MDin OV> 01/13/25 0848 DD/ 13 TD/TT: 01/12/251943 Bar Helper: us Aileen Howard DO IMG MRI PROCEDURES Final Res ult * Vitamin D, 25-Hydroxy, Total, Immunoassay (01/08/2025 8:10 AM EDT) Vitamin D 25-OH Total 41.9 >30 ng/mL [facility] Comment: Health Based Reference Values*< 20 ??ng/mL ??[id number] ng/mL ??Insufficient> 30 ??ng/mL ??Sufficient*Britni FLORES. N [...] DO LAB BLOOD ORDERABLES Final R esult [facility] [address] [place] [phone] * Vitamin B12 (Cobalamin) and Folate Panel, Serum (01/08/2025 8:10 AM EDT) Vitamin B12 678 200 - 900 pg/mL [facility] Comment:NORMAL 200-900 PG/ML INDETERMINATE 160-199 PG/ML DEFICIENT < 160 PG/ML Folate 14.3 > or = 4.0 ng/mL [facility] Comment:Reference Values:> o r = 4.0 ng/mL< 4.0 ng/mL suggests folate deficiency Methotrexate, aminopterin and folinic acid(leucovorin) are chemotherapeutic agents whose molecularstructures are similar to folate; therefore, the Architectfolate assay cannot be used for patients using these drugs. Blood 01/08/2025 8:10 AM EDT 01/08/2025 11:15 AM EDT Aileen Howard DO LAB BLOOD ORDERABLES Final R ult Performing Organization Address [facility] Co de Phone Number [facility] [address] [place] [phone] * Albumin, Random Urine W/Creatinine (01/08/2025 8:10 AM EDT) Creatinine, Urine 140.84 mg/dL [facility] Microalbumin Urine 13.0 mg/L [facility] Microalbum Creatinine Ratio Ur 9.2 <30 ug/mg cr [facility] Comment:Albumin/Creatinine R atio Reference Ranges: Normal: < 30 ug/mg creatinine Microalbuminuria: 30 - 300 ug/mg creatinineClinical Albuminuria: > 300 ug/mg creatinine Urine (Urine, Random) 01/08/2025 8:10 AM EDT 01/08/2025 11:14 AM EDT us Aileen Howard DO LAB URINE ORDERABLES Final R esult Performing Organization Address City/[facility]/ZIP Co de Phone Number [facility] [address] [place] [address] [phone] * (ABNORMAL) CBC auto differential (01/08/2025 8:10 AM EDT) White Blood Count 10.4 4.8 - 10.8 X10*3/uL [facility] Red Blood Count 5.14 4.20 - 5.50 X10*6/uL [facility] Hemoglobin 12.3 12.0 - 16.0 g/dl [facility] Hematocrit 41.0 37.0 - 47.0 % [facility] Mean Corpuscular Volume 79.8(L) 80.0 - 98.0 fL [facility] Mean Corpuscular Hemoglobin 23.9(L) 27.0 - 33.0 pg [facility] Mean Corpuscular HGB Conc 30.0(L) 31.0 - 35.0 g/dl [facility] Red Cell Distribution Width 14.7 11.0 - 16.0 % [facility] Platelet Count 431(H) 160 - 400 X10*3/uL [facility] Mean Platelet Volume 10.6 9.4 - 12.3 fL [facility] Neutrophils Percent Auto 75.6(H) 45 - 73 % [facility] Imm Gran Pct Auto 0.4 0.0 - 0.4 % [facility] Lymphocytes Percent Auto 16.2(L) 20 - 40 % [facility] Monocytes Percent Auto 6.0 2 - 11 % [facility] Eosinophils Percent Auto 1.4 0 - 4 % [facility] Basophils Percent Auto 0.4 0 - 2 % [facility] NRBC Pct Auto 0.0 0.0 - 0.2 /100WBC [facility] Neutrophils Absolute Auto 7.9 2.0 - 8.3 x10*3/uL [facility] Imm Gran Abs Auto 0.04(H) 0.00 - 0.03 X10*3/uL [facility] Lymphocytes Absolute Auto 1.7 1.2 - 4.9 X10*3/uL [facility] Monocytes Absolute Auto 0.6 0.1 - 1.2 X10*3/uL [facility] Eosinophils Absolute Auto 0.2 0.0 - 0.4 X10*3/uL [facility] Basophils Absolute Auto 0.0 0.0 - 0.2 X10*3/uL [facility] NRBC Abs Auto 0.000 0.0 - 0.012 X10*3/uL [facility] Blood Venous blood specimen / Unknown 01/08/2025 8:10 AM EDT 01/08/2025 11:15 AM EDT Aileen Howard DO LAB BLOOD ORDERABLES Final R esult Performing Organization Address City/[facility] Co de Phone Number [facility] [address] [place] [phone] * Hepatitis C Antibody with Reflex to HCV, RNA, Quantitative, Real-Time PCR (01/08/2025 8:10 AM EDT) Hepatitis C Antibody Nonreactive Nonreactive [facility] Comment:Antibodies to HCV no t detected; does not exclude early acuteHCV infection. Blood Venous blood specimen / Unknown 01/08/2025 8:10 AM EDT 01/08/2025 11:15 AM EDT Aileen Howard DO LAB BLOOD ORDERABLES Final R esult Performing Organization Address [facility] de Phone Number [facility] [address] [place] [phone] * (ABNORMAL) Iron And Total Iron Binding Capacity (01/08/2025 8:10 AM EDT) Iron 45 30 - 160 mcg/dL [facility] Total Iron Binding Capacity 340 228 - 428 mcg/dL [facility] Percent Iron Saturation 13(L) 15 - 50 % [facility] Unsaturated Iron Binding 295 ug/dL [facility] Blood Venous blood specimen / Unknown 01/08/2025 8:10 AM EDT 01/08/2025 11:15 AM EDT Aileen Howard DO LAB BLOOD ORDERABLES Final R esult Performing Organization Address City/[facility]/ZIP Co de Phone Number [facility] [address] [place] [phone] * Hepatitis A Antibody, Total (01/08/2025 8:10 AM EDT) Pathologist [facility] Hepatitis A Antibody IgG Nonreactive Nonreactive [facility] Blood Venous blood specimen / Unknown 01/08/2025 8:10 AM EDT 01/08/2025 11:15 AM EDT Aileen Howard DO LAB BLOOD ORDERABLES Final R esult Performing Organization Address [facility] Co de Phone Number [facility] [address] [place] [phone] * Chlamydia/N. Gonorrhoeae RNA, TMA, Urogenitial (01/08/2025 8:10 AM EDT) [facility] CT PCR NOT DETECTED Not Detect. [facility] Comment:A not detected test result [...] psychologicalconsequences. NG PCR NOT DETECTED Not Detect. [facility] Comment:A not detected test result [...] AM EDT 01/08/2025 11:14 AM EDT Narrative [facility] - 01/08/2025 2:27 PM EDT Urine Aileen Howard DO LAB MICROBIOLOGY - GENERAL O RDERABLES Final Result Performing Organization Address [facility] Co de Phone Number [facility] [address] [place] [phone] * Hepatitis B surface antigen, EIA (01/08/2025 8:10 AM EDT) Hepatitis B Surface Ag Negative Negative [facility] Blood Venous blood specimen / Unknown 01/08/2025 8:10 AM EDT 01/08/2025 11:15 AM EDT us Aileen Howard DO LAB BLOOD ORDERABLES Final R esult Performing Organization Address [facility] Co de Phone Number [facility] [address] [place] [phone] * Hepatitis B Core Antibody, Total (01/08/2025 8:10 AM EDT) Hepatitis B Core Antibody Nonreactive Nonreactive [facility] Blood Venous blood specimen / Unknown 01/08/2025 8:10 AM EDT 01/08/2025 11:15 AM EDT Aileen Howard DO LAB BLOOD ORDERABLES Final R esult Performing Organization Address [facility]/ZIP Co de Phone Number [facility] [address] [place] [phone] * RPR (Monitor) with Reflex to??Titer (01/08/2025 8:10 AM EDT) RPR (Monitor) w/Refl Titer NON-REACTI VE NON-REACT BOOGIE [facility] Comment:THIS TEST WAS PERFOR MED AT:[employer] [place] [id number] MOSER MD Rapid Plasma Reagin Ab Titer TNP [facility] Blood Venous blood specimen / Unknown 01/08/2025 8:10 AM EDT 01/08/2025 11:15 AM EDT Aileen Howard DO LAB BLOOD ORDERABLES Final R esult [facility] [address] [place] [phone] * HIV-1/2 Antigen and Antibodies, Fourth Generation, with Reflexes (01/08/2025 8:10 AM EDT) HIV AB/AG Nonreactive Nonreactive [facility] Comment:HIV-1 p24 Ag and/or HIV-1/HIV-2 Ab not detected.A test result that is nonreactive does not exclude thepossibility of exposure to or infection with HIV-1 and/orHIV-2. Nonreactive results in this assay for individualswith prior exposure to HIV-1 and/or HIV-2 may be due toantigen and antibody levels that are below the limit ofdetection of this assay.The [employer] HIV Ag/Ab Combo assay result andsupplemental assay results should be interpreted inconjunction with the patient's clinical presentation,history and other laboratory results. If the results areinconsistent with clinical evidence, additional testing issuggested to confirm the result. Blood Venous blood specimen / Unknown 01/08/2025 8:10 AM EDT 01/08/2025 11:15 AM EDT Aileen Howard DO LAB BLOOD ORDERABLES Final R esult Performing Organization Address [facility] Co de Phone Number [facility] [address] [place] [phone] * Hepatitis B Surface Antibody, Qualitative (01/08/2025 8:10 AM EDT) Pathologist [facility] ~Hepatitis B Surface Antibody NONREACTIVE Nonreactive [facility] Comment:Nonreactive: < 8.00 mIU/mL Blood Venous blood specimen / Unknown 01/08/2025 8:10 AM EDT 01/08/2025 11:15 AM EDT Aileen Howard DO LAB BLOOD ORDERABLES Final R esult Performing Organization Address [facility] de Phone Number [facility] [address] [place] [phone] * TSH (01/08/2025 8:10 AM EDT) Pathologist [facility] Thyroid Stimulating Hormone 2.39 0.32 - 4.0 uIU/mL [facility] Comment:TSH 3rd Generation ( [facility]) Blood Venous blood specimen / Unknown 01/08/2025 8:10 AM EDT 01/08/2025 11:15 AM EDT Aileen Howard DO LAB BLOOD ORDERABLES Final R esult Performing Organization Address [facility] Co de Phone Number [facility] [address] [place] [phone] * T4, Free (01/08/2025 8:10 AM EDT) Pathologist [facility] Free T4 (Free Thyroxine) 0.91 0.71 - 1.85 ng/dL [facility] Blood Venous blood specimen / Unknown 01/08/2025 8:10 AM EDT 01/08/2025 11:15 AM EDT us Aileen Howard DO LAB BLOOD ORDERABLES Final R esult Performing Organization Address City/[facility]/ZIP Co de Phone Number [facility] [address] [place] [phone] * Hemoglobin A1c (01/08/2025 8:10 AM EDT) Hemoglobin A1c 6.0 <6.0 % [facility] Comment:Hemoglobin A1C Refer ence Range Adults: 4.8 - 6.0 % Non diabetic: < 6.0 % Goal: < 7.0 %Additional Action Suggested: > 8.0 %Note: Hemoglobin A1c results are invalid for patients with abnormal amounts of HbF. Blood transfusions may impact the HbA1c concentration in the patient sample. Estimated Average Glucose 126 mg/dL [facility] Comment:eAG = Estimated ave rage glucose which is %A1C expressed asaverage glucose, using the formula of the M7K-RyvgrhkEixxspy Glucose study (ADAG), Diabetes Care, Vol.31,#8,May. 2007 Blood Venous blood specimen / Unknown 01/08/2025 8:10 AM EDT 01/08/2025 11:15 AM EDT us Aileen Howard DO LAB BLOOD ORDERABLES Final R esult Performing Organization Address [facility] Co de Phone Number [facility] [address] [place] [phone] * Ferritin (01/08/2025 8:10 AM EDT) Ferritin 25 10 - 250 ng/mL [facility] Blood Venous blood specimen / Unknown 01/08/2025 8:10 AM EDT 01/08/2025 11:15 AM EDT us Aileen Howard DO LAB BLOOD ORDERABLES Final R esult Performing Organization Address City/[facility]/ZIP Co de Phone Number [facility] [address] [place] [phone] * Hepatic Function Panel (01/08/2025 8:10 AM EDT) Bilirubin, Total 0.9 0.0 - 1.0 mg/dL [facility] Bilirubin, Direct 0.3 0.0 - 0.5 mg/dL [facility] Aspartate Amino Transferase 18 5 - 31 U/L [facility] Alanine Aminotransferase 20 0 - 31 U/L [facility] Total Protein 7.9 6.5 - 8.0 g/dL [facility] Albumin Level 4.2 3.5 - 5.0 g/dL [facility] Alkaline Phosphatase 91 39 - 117 U/L [facility] Blood Venous blood specimen / Unknown 01/08/2025 8:10 AM EDT 01/08/2025 11:15 AM EDT Aileen Howard DO LAB BLOOD ORDERABLES Final R esult [facility] [address] [place] [phone] * (ABNORMAL) Lipid Panel, Standard (01/08/2025 8:10 AM EDT) Triglycerides 77 <150 mg/dL [facility] Comment:Desirable Triglyceri de: less than 150 mg/dLBorderline High Triglyceride 150-199 mg/dLHigh Triglyceride: 200-499 mg/dLVery High Triglyceride: greater than or equal to 5OO mg/dL Cholesterol 200(H) <200 mg/dL [facility] Comment:Desirable Cholestero l: less than 200 mg/dLBorderline High Cholesterol: 200-239 mg/dLHigh Cholesterol: greater than 239 mg/dL LDL Cholesterol Calculated 125(H) <100 mg/dL [facility] Comment:Desirable LDL: less than 100 mg/dLNear Optimal/Above Optimal LDL: 110- 129 mg/dLBorderline High LDL: 130-159 mg/dLHigh LDL: 160-189 mg/dLVery High LDL: greater than or equal to 190 mg/dL HDL Cholesterol 60 >40 mg/dL [facility] Comment:Desirable HDL: great er than 40 mg/dL Note: This HDL assay may give artificially low results in patients with liver disease. Blood Venous blood specimen / Unknown 01/08/2025 8:10 AM EDT 01/08/2025 11:15 AM EDT Aileen Howard DO LAB BLOOD ORDERABLES Final R esult Performing Organization Address [facility] Co de Phone Number [facility] [address] [place] [phone] * (ABNORMAL) Basic Metabolic Panel (01/08/2025 8:10 AM EDT) Sodium 140 135 - 145 mmol/L [facility] Potassium 4.2 3.3 - 5.1 mmol/L [facility] Chloride 104 96 - 108 mmol/L [facility] Carbon Dioxide 28 22 - 29 mmol/L [facility] Anion Gap 12 12 - 20 [facility] Urea Nitrogen (BUN) 19(H) 9 - 16 mg/dL [facility] Creatinine, Serum 0.63 0.5 - 1.4 mg/dL [facility] Estimated Glomerular Filt Rate >60 [facility] Comment:Chronic Kidney Disea se: Estimated GFR < 60 mL/min/1.85a4Bdrceg Kidney Disease: Estimated GFR < 15 mL/min/1.73m2 Glucose 130(H) 60 - 115 mg/dL [facility] Calcium 9.3 8.4 - 10.2 mg/dL [facility] Blood Venous blood specimen / Unknown 01/08/2025 8:10 AM EDT 01/08/2025 11:15 AM EDT Aileen Howard DO LAB BLOOD ORDERABLES Final R esult Performing Organization Address [facility] Co de Phone Number [facility] [address] [place] [phone] * XR CERVICAL SPINE 3V (01/07/2025 9:54 AM EDT) Anatomical Region Laterality Modality Abdomen Radiographic Lynette ging 01/07/2025 9:54 AM EDT Narrative 01/07/2025 10:41 AM EDT ?[facility] ?[address] ?[place] [address] ?XRay Report ? Signed ? Patient: Menendez,Haideliz ?MR#: [id number] ?? [id number] ? : 1980 ?Acct:[id number] ? Age/Sex: 44 / F ?ADM Date: 01/07/25 ? Loc: HO.HHCX ? Attending Dr: Aileen Howard DO ? Ordering Physician: Aileen Howard DO ?? Date of Service: 01/07/25 ?? Procedure(s): XR cervical spine 3V ?? Accession Number(s): [id number] ? cc: Aileen Howard DO ? EXAMINATION: [...] ??Dayron Yap MD ??01/07/2025 10:39 AM EDT ?? RP ? Dictated By: ?Dayron Yap MD ? Signed By: ?<Electronically signed by Dayron Yap MD in OV> ?01/07/25 1039 ? DD/ 0954 ? TD/TT: 01/07/25 1000 ? Bar Helper: ? Procedure Note Dimitri Trujillo - 01/07/2025 [facility] [address] [place] [address] XRay Report Signed Patient: Margaux MenendezMR#: [id number] : 1980Acct:[id number] Age/Sex: 44 / FADM Date: 01/07/25 Loc: HO.HHCX Attending Dr: Aileen Howard DO Ordering Physician: Aileen Howard DO Date of Service: 01/07/25 Procedure(s): XR cervical spine 3V Accession Number(s): [id number] cc: Aileen Howard DO EXAMINATION: XR CERVICAL [...] 01/07/25 1039 DD/ 0954 TD/TT: 01/07/25 1000 Bar Helper: Aileen Howard DO IMG XR PROCEDURES Edited Res ult - Final from Last 3 Months Insurance [facility] C3 Care Teams Applications Administrator Relationship Specialty Start Date End Date Aileen Howard DO [address] [place] [phone] PCP - General Family Medicine 01/18/25
--- OUTSIDE RECORDS SUMMARY | 2025-01-29 08:31 | XMS_ITS | Encounter Summary ---
Author Organization [employer] [facility] Address [address] [facility] [address] [place] [address] Care Team Providers Care Launch Steward Name Role Phone AugustAileen glass Primary Care Provider Encounter Details Date Type Department Care Team (Late st Contact Info) Description 01/27/2025 Population Health Risk Score [facility] (C[facility]) Department [address] [facility] [address] [place] [phone] Provider, Population Health Generic Social History Tobacco Use Types Packs/Day Years [...] with others, in a hotel, in a usp, living outside on the street, on a [...] documented as of this encounter Care Teams Launch Steward Relationship Specialty Start Date End Date Aileen Howard DO [address] [place] [phone] PCP - General Family Medicine 01/18/25 documented as of this encounter
--- OUTSIDE RECORDS SUMMARY | 2025-01-29 08:31 | XMS_ITS | Encounter Summary ---
Author Organization [employer] Address [address] [facility] 7t [place] [address] Care Team Providers Care Piping Design Specialist Name Role Phone Aileen Howard DO Primary Care Provider [phone] Reason for Referral * Consultation (Routine) - Closed Specialty Diagnoses / Procedures Referred By Codi littlejohn Referred To Contact Behavioral Health Diagnoses Anxiety Aileen Howard DO [address] [place] [address] Phone: tel: fax: Referral ID Status Reason Start Date Expiration Date V isits Requested Visits Authorized [id number] Closed Specialty Services Required 01/27/2025 01/27/2026 1 1 * Consultation (Urgent) - Pending Review Specialty Diagnoses / Procedures Referred By Codi littlejohn Referred To Contact Cardiology Diagnoses Palpitations Aileen Howard DO [address] [place] [address] Phone: tel: fax: Referral ID Status Reason Start Date Expiration Date Visits Requested Visits Authorized [id number] Pending Review Specialty Services Required 01/27/2025 01/27/2026 1 1 * Consultation (STAT) - Authorized Specialty Diagnoses / Procedures Referred By Codi littlejohn Referred To Contact Vascular Surgery Diagnoses Peripheral vascular disease (CMS/HCC) Aileen Howard DO [address] [place] [address] Phone: tel: fax: Andrea Skinner MD [address] [place] [address] Phone: tel: fax: Referral ID Status Reason Start Date Expiration Date Visits Requested Visits Authorized [id number] Authorized Specialty Services Required 01/28/2025 01/28/2026 6 6 * Consultation (STAT) - Authorized Specialty Diagnoses / Procedures Referred By Codi littlejohn Referred To Contact Neurology Diagnoses Paresthesia of right arm and leg Paresthesia of tongue Aileen Howard DO [address] [place] [address] Phone: tel: fax: [facility] [address] [facility] 3rd [address] [place], [place] Phone: tel: fax: Referral ID Status Reason Start Date Expiration Date Visits Requested Visits Authorized [id number] Authorized Specialty Services Required 01/28/2025 01/28/2026 6 6 Reason for Visit * Reason Comments Follow-up Encounter Details Date Type Department Care Team (Late st Contact Info) Description 01/27/2025 11:15 AM EDT Office Visit [facility] [address] [place] [address] Aileen Howard DO [address] [place] [address] Essential hypertension (Primary Dx); Peripheral vascular disease (CMS/HCC); Prediabetes; Palpitations; Chronic pain of right upper extremity; Paresthesia of right arm and leg; Abnormal mammogram; Paresthesia of tongue; Anxiety; Daily headache; Abnormal brain MRI Social History Tobacco Use Types Packs/Day Years [...] with others, in a hotel, in a skilled nursing, living outside on the street, on a [...] Index - - documented in this encounter Progress Notes * Aileen Lee, DO - 01/27/2025 11:15 AM EDT SUBJECTIVE Margaux Menendez is a 44 y.o. female who presents for Sick Visit. She comes in today with multiple concerns. She says that she is not sleeping. She has been having to take two of the ambien and still not sleeping good. She took the hydroxyzine for 3 days but didn't feel like it helped so she stopped taking it. She needs DTA paperwork completed. She tried to bring the papers to [facility] last week but they weren't accepted since she hadn't had appt on red team yet. She is unable to get financial assistance or food stamps until she has paperwork completed and if she doesn't get it in on time she will need to start the process all over. She says that she's going through a lot. She is staying at her brother's home and there are 6 people in addition to her and her mom and it is very stressful. She feels that home is not helping with her sleep. She has been getting headaches every day. She has no h/o migraines. She hasn't taken any pain meds. She says that the pain in her arm doesn't go away. Her tongue is still numb. She is still getting the episodes of numbness on the R side of her body with tearing and now getting swelling during episodes as well. She also feels her heart racing when she has the episodes. She did MRIs already and has appt for her nerve tests on Saturday. She has repeat mammo scheduled for next week. She has not received appts with neurology or vascular. Review of Systems Constitutional: Negative for chills and fever. Respiratory: Negative for shortness of breath. Cardiovascular: Negative for chest pain and leg swelling. Gastrointestinal: Negative for abdominal pain, diarrhea and vomiting. Musculoskeletal: Positive for arthralgias. Negative for joint swelling and myalgias. Neurological: Positive for numbness and headaches. Negative for dizziness, tremors, syncope and weakness. Patient Active Problem List Diagnosis Essential hypertension Peripheral vascular disease (CMS/HCC) Prediabetes Anxiety Chronic pain of right upper extremity No Known Allergies OBJECTIVE Visit Vitals BP 115/57 (BP Location: Left arm, Patient Position: Sitting, BP Cuff Size: Large adult) Pulse 82 Temp 97.5 ??F (36.4 ??C) (Temporal) Resp 20 Wt 164 lb 12.8 oz (74.8 kg) SpO2 100% Smoking Status Some Days Physical Exam Constitutional: General: She is not in acute distress. Appearance: Normal appearance. Cardiovascular: Rate and Rhythm: Normal rate and regular rhythm. Heart sounds: Normal heart sounds. No murmur heard. Pulmonary: Effort: Pulmonary effort is normal. Breath sounds: Normal breath sounds. No wheezing or rhonchi. Musculoskeletal: Right lower leg: No edema. Left lower leg: No edema. Neurological: General: No focal deficit present. Mental Status: She is alert and oriented to person, place, and time. Cranial Nerves: No cranial nerve deficit. Motor: No weakness. Gait: Gait normal. Psychiatric: Mood and Affect: Mood is anxious. Speech: Speech normal. Behavior: Behavior normal. Thought Content: Thought content normal. Assessment/Plan Diagnoses and all orders for this visit: Essential hypertension BP controlled -cont lisinopril/HCTZ daily -Cr, GFR and urine microalbumin nml Dec 2024 -review optho next visit* Peripheral vascular disease (CMS/HCC) -cont pletal as previously rx'd -cont aspirin and lipitor daily -re-referred to vascular for eval - Referral to Vascular Surgery; Future Prediabetes A1c 6.Dec -cont intermittent BS monitoring Palpitations Worsening sx with paresthesia episodes -CBC and TFTs nml Dec 2024 -ECHO normal Dec 2024 -Holter sinus with frequent sinus tachycardia and rare SVT Dec 2024 -referred to cardiology for eval - Referral to Cardiology; Future Chronic pain of right upper extremity Persistent pain with paresthesias, ?neuropathy vs radiculopathy -C-spine xrays unremarkable Dec 2024 -MRI C-spine normal Dec 2024 -increase gabapentin to 300 mg TID -encouraged baclofen nightly -cont nabumetone prn -consider eval with PT/ortho pending EMG/NCS results Paresthesia of right arm and leg Paresthesia of tongue Intermittent episodes of R-sided numbness with occasional tongue paresthesias -MRI brain with no acute abnormality Dec 2024 -keep EMG/NCS this week as scheduled -basic labs -cont meds as above -re-referred to neurology for eval - Referral to Neurology; Future Abnormal mammogram mammo BIRADS Dec -keep additional imaging as scheduled Anxiety With probable depression and insomnia -she denies any SI/HI -she is given the number to crisis -increase hydroxyzine to 50mg prn acute anxiety sx -consider trial SSRI -cont ambien nightly as needed -trial melatonin 2 hours prior to bedtime -referred to clinician as unable to speak with patient at visit -will complete DTA paperwork Daily headache With grossly nml neuro exam, probable stress/tension -advised trial tylenol prn -increase gabapentin as above -advised rtc or go to ED if sx change or worsen, she agrees with plans Abnormal brain MRI -MRI brain with prominent lacrimal glands, could be seen with sarcoidosis Dec 2024 -MRI C-spine with nonspecific prominent cervical lymph nodes Dec 2024 -check ESR, CRP, BRENDAN, RF and Lyme -check MARVIN level and T-spot -referred for CXR -consider eval with rheum/pulm pending results - BRENDAN Screen,IFA, with Reflex to Titer and Pattern; Future - Lyme Disease Ab with Reflex to Blot (IgG, IgM); Future - Rheumatoid Factor; Future - Sed Rate by Modified Westergren; Future - C-reactive Protein; Future --Follow-up with me in 2 mos or sooner prn-- Current Outpatient Medications: acetaminophen (Tylenol 8 Hour) 650 MG ER tablet, Take 1 tablet (650 mg) by mouth every 8 (eight) hours if needed for mild pain or headaches. Do not crush, chew, or split., Disp: 40 tablet, Rfl: 1 Alcohol Swabs 70 % pads, Use to test blood sugar one time daily, Disp: 100 each, Rfl: 3 aspirin 81 MG chewable tablet, Chew 1 tablet (81 mg) Once per day., Disp: 30 tablet, Rfl: 3 atorvastatin (Lipitor) 40 MG tablet, Take 1 tablet (40 mg) by mouth at bedtime., Disp: 30 tablet, Rfl: 3 baclofen (Lioresal) 10 MG tablet, Take 1 tablet (10 mg) by mouth if needed at bedtime for muscle spasms., Disp: 30 tablet, Rfl: 3 Blood Glucose Monitoring Suppl (FreeStyle [place] Lite) w/Device kit, Use to test blood sugar one time daily, Disp: 1 kit, Rfl: 0 cilostazol (Pletal) 50 MG tablet, Take 1 tablet (50 mg) by mouth 2 times daily., Disp: 60 tablet, Rfl: 3 FREESTYLE LITE test strip, Use to test blood sugar one time daily, Disp: 100 each, Rfl: 3 gabapentin (Neurontin) 300 MG capsule, Take 1 capsule (300 mg) by mouth 3 times daily., Disp: 90 capsule, Rfl: 11 hydrOXYzine pamoate (Vistaril) 50 MG capsule, Take 1 capsule (50 mg) by mouth every 6 (six) hours if needed for anxiety., Disp: 40 capsule, Rfl: 1 Lancets misc, Use to test blood sugar one time daily, Disp: 100 each, Rfl: 3 lisinopril-hydroCHLOROthiazide (Zestoretic) 10-12.5 MG tablet, Take 1 tablet by mouth Once per day., Disp: 30 tablet, Rfl: 3 melatonin 5 MG tablet, Take 1-2 tablets (5-10 mg) by mouth if needed at bedtime (insomnia)., Disp: 60 tablet, Rfl: 3 nabumetone (Relafen) 500 MG tablet, Take 1 tablet (500 mg) by mouth if needed in the morning and atbedtime for mild pain., Disp: 60 tablet, Rfl: 1 omeprazole OTC (PriLOSEC OTC) 20 MG EC tablet, Take 1 tablet (20 mg) by mouth before breakfast. Do not crush, chew, or split., Disp: 30 tablet, Rfl: 3 zolpidem (Ambien) 10 MG tablet, Take 1 tablet (10 mg) by mouth if needed at bedtime for sleep., Disp: 30 tablet, Rfl: 0 documented in this encounter Plan of Treatment Scheduled Orders Name Type Priority Associated Diagnoses Orde r Schedule BRENDAN Screen,IFA, with Reflex to Titer and Pattern Lab Routine Abnormal brain MRI Expected: 01/27/2025 (Approximate), Expires: 01/27/2026 Lyme Disease Ab with Reflex to Blot (IgG, IgM) Lab Routine Abnormal brain MRI Expected: 01/27/2025, Expires: 01/27/2026 Rheumatoid Factor Lab Routine Abnormal brain MRI Expected: 01/27/2025, Expires: 01/27/2026 Sed Rate by Modified Westergren Lab Routine Abnormal brain MRI Expected: 01/27/2025, Expires: 01/27/2026 C-reactive Protein Lab Routine Abnormal brain MRI Expected: 01/27/2025 (Approximate), Expires: 01/27/2026 T-SPOT??.TB Lab Routine Abnormal brain MRI Expected: 01/27/2025 (Approximate), Expires: 01/27/2026 Angiotensin -1- Converting Enzyme Lab Routine Abnormal brain MRI Expected: 01/27/2025 (Approximate), Expires: 01/27/2026 XR Chest 2 Views Imaging Routine Abnormal brain MRI Expected: 01/27/2025, Expires: 01/27/2026 Scheduled Referrals Name Type Priority Associated Diagnoses Order Schedule Referral to Neurology Outpatient Referral STAT Paresthesia of right arm and leg Paresthesia of tongue Expected: 01/27/2025 (Approximate), Expires: 01/27/2026 Referral to Vascular Surgery Outpatient Referral STAT Peripheral vascular disease (CMS/HCC) Expected: 01/27/2025 (Approximate), Expires: 01/27/2026 Referral to Cardiology Outpatient Referral Urgent Palpitations Expected: 01/27/2025 (Approximate), Expires: 01/27/2026 Referral to Behavioral Health Outpatient Referral Routine Anxiety Expected: 01/27/2025 (Approximate), Expires: 01/27/2026 documented as of this encounter Visit Diagnoses Diagnosis Essential hypertension- Primary Unspecified essential hypertension Peripheral vascular disease (CMS/HCC) Unspecified peripheral vascular disease Prediabetes Other abnormal glucose Palpitations Chronic pain of right upper extremity Paresthesia of right arm and leg Abnormal mammogram Abnormal mammogram, unspecified Paresthesia of tongue Anxiety Anxiety state, unspecified Daily headache Abnormal brain MRI Nonspecific (abnormal) findings on radiological and other examination of skull and head documented in this encounter Additional Health Concerns Assessment Noted Time PHQ-9 Depression Total Score: 8 01/28/20 25 12:38 PM EDT documented as of this encounter Care Teams Piping Design Specialist Relationship Specialty Start Date End Date Aileen Howard DO [address] [place] [id number] PCP - General Family Medicine 01/18/25 documented as of this encounter
--- OUTSIDE RECORDS SUMMARY | 2025-01-29 08:31 | XMS_ITS | Encounter Summary ---
Author Organization [employer] Address [address] [facility] 7[address] [place] [address] Care Team Providers Care [facility] Name Role Phone Aileen Howard DO Primary Care Provider [phone] Reason for Visit * Reason Comments Care Coordination CHW outreach for SDO H PT-1 and food needs-referral completed Encounter Details Date Type Department Care Team (Latest Contact Info) Description 01/27/2025 Patient Outreach [facility] [address] [place] [address] Aileen Howard DO [address] [place] [address] Care Coordination (CHW outreach for SDOH PT-1 and food needs-referral completed /) Social History Tobacco Use Types Packs/Day Years [...] with others, in a hotel, in a half-way, living outside on the street, on a [...] AM EDT documented as of this encounter Progress Notes * Av Santos - 01/27/2025 1:46 PM EDT CHW Av Santos, placed outbound call to patient for assistance with SDOH as a referral was received by the provider. Patient's name and were confirmed. Patient screened positive for the following SDOH food insecurities. CHW referred patient to list of local [employer] pantries and HIP program formore resources. Patient verbalizes understanding, and able to agree to follow up with housing search and call. Patient educated on extended clinic hours on Mondays through Wednesdays, and Walk-In Urgent Care Located in [facility]. Patient provided with after- hours line for [facility], , which offer night time triage service and option to transfer to communications professional provider if needed. documented in this encounter Plan of Treatment Not on file documented as of this encounter Visit Diagnoses Not on filedocumented in this encounter Additional Health Concerns Assessment Noted Time PHQ-9 Depression Total Score: 8 01/28/20 25 12:38 PM EDT documented as of this encounter Care Teams [facility] Relationship Specialty Start Date End Date Aileen Howard DO [address] [place] [address] PCP - General Family Medicine 01/18/25 documented as of this encounter
[2025-01-29 12:09] LABS: Erythrocyte Sedimentation Rate 14 MM/HR (0-20)
[2025-01-29 12:56] LABS: Rheumatoid Factor < 13.0 IU/mL (<15.0)
[2025-01-29 12:57] LABS: C Reactive Protein 2.49 mg/dL (< or = 0.50)
[2025-02-01 12:48] LABS: TS Negative Control Passed; TS Panel A 1; TS Panel B 0; TS Positive Control Passed; TSpotTB Negative (Negative)
[2025-02-02 02:43] LABS: Lyme Abs Screen <0.90 index
[2025-02-03 10:38] LABS: Anti Nuclear Antibody Screen NEGATIVE (NEGATIVE)
[2025-02-04 16:32] LABS: Angiotensin Converting Enzyme 19.5 U/L (9-67)
== END 2025-01-29 08:17 | disposition home or self-care (01) ==
LOC: HO.HHCL 08:16
PROVIDERS: Visit Provider Family Medicine
DX: R90.89 Other abnormal findings on diagnostic imaging of central nervous system (principal)
CPT/HCPCS: 36415; 82164; 85652; 86038; 86140; 86431; 86481; 86617; 86618

== ENCOUNTER 2025-02-02 08:26 | Outpatient (REF) | payer MEDICAID, SELFPAY ==
--- NOTE | ~2025-02-02 | US_ITS ---
EXAMINATION: MM DIAGNOSTIC DIGITAL BREAST TOMOSYNTHESIS, BILATERAL Bilateral Limited ultrasound. CLINICAL INFORMATION: Call back from screening for bilateral asymmetries and right breast pain which comes and goes and has had it for a long time and currently does not feel pain. COMPARISON: Mammography: Comparison is made with relevant prior exams. TECHNIQUE: Digital breast mammography with tomosynthesis is performed in both the craniocaudal and mediolateral oblique views along with computer-aided detection (CAD). FINDINGS: There are scattered areas of fibroglandular density (ACR BI-RADS breast composition Category b). Left: Previously seen asymmetry in the retroareolar region does not persist on additional imaging projections and likely represented overlapping breast tissue. No suspicious masses calcifications or other abnormal findings. Targeted color Doppler ultrasound demonstrates fibroglandular breast tissue scanning in the retroareolar region. There is no sonographic abnormality. Right: 4 mm oval mass in the retroareolar region persists on additional imaging projections. No suspicious calcifications or other abnormal findings. Targeted color Doppler ultrasound demonstrates a minimally complicated cyst at 7:00 1 cm from nipple measuring 3 x 2 x 4 mm which correlates with the oval mass on mammography and is benign. There is no vascular flow. Results are provided to the patient at time of visit by the technologist. US/US breast BI limited mamm only IMPRESSION: Left: Negative. Right: Benign. No mammographic or sonographic abnormalities account for the patient's right breast pain. Recommend clinical evaluation and follow-up. ASSESSMENT: BI-RADS BI-RADS 2 - Benign Findings RECOMMENDATION: 1 year F/U This patient's information was entered into a reminder system with a target due date for their next mammogram. Electronically signed by: Belle Araiza DO 02/02/2025 10:17 AM EDT
--- OUTSIDE RECORDS SUMMARY | 2025-02-02 08:48 | XMS_ITS | Encounter Summary ---
Author Organization [employer] Address [address] [facility] [address] [place] [address] Care Team Providers Care Public Policy Mediator Name Role Phone Aileen Howard DO Primary Care Provider [phone] Reason for Visit * Reason Onset Date Comments Referral 01/29/2025 Encounter Details Date Type Department Care Team ([facility] st Contact Info) Description 01/29/2025 Telephone [facility] [address] [place] [address] Aileen Howard DO [address] [place], [place] [id number] Referral Social History Tobacco Use Types Packs/Day Years [...] with others, in a hotel, in a fdc, living outside on the street, on a [...] encounter Miscellaneous Notes * Telephone Encounter - Gemini Hall RN - 01/29/2025 1:19 PM EDT TC placed to patient [phone] regarding below message. RN informed patient that her PCP sent her referral to [facility] stat. [facility] informed RN that they should be calling patient Saturday or Saturday for a appt. Pt verbalized understanding. Pt to F/U PRN. * Telephone Encounter - Gemini Hall RN - 01/29/2025 12:00 PM EDT TC placed to [facility] (Abida) [phone] regarding below message. Abida from [facility] reported to RN that patient referral was received yesterday, it will be reviewed and they will call the patient on Saturday or Saturday since the referral was placed stat. Pt did not have a appointment today with [facility]. * Telephone Encounter - Ignacia Gregory - 01/29/2025 8:35 AM EDT PT walked in stating that she had a neurology appt today 01/29/2025 but was called stating that they needed to cancel due to Not being in today. PT is very concerned since half of her side is falling asleep consistently so PT is looking for a referral labeled STAT in order for them to make her a sooner appt than February 2025. documented in this encounter Plan of Treatment Not on file documented as of this encounter Visit Diagnoses Not on filedocumented in this encounter Additional Health Concerns Assessment Noted Time PHQ-9 Depression Total Score: 8 01/28/20 12:38 PM EDT documented as of this encounter Care Teams Public Policy Mediator Relationship Specialty Start Date End Date Aileen Howard DO [address] [place] [address] PCP - General Family Medicine 01/18/25 documented as of this encounter
--- OUTSIDE RECORDS SUMMARY | 2025-02-02 08:48 | XMS_ITS | Encounter Summary ---
Author Organization [employer] Address [address] [facility] [address] [place] [address] Care Team Providers Care Civil Engineer Land Development Name Role Phone ShabnamAileen beltre Primary Care Provider Encounter Details Date Type Department Care Team (Latest Contact Info) Description 01/29/2025 Travel Social History Tobacco Use Types Packs/Day [...] with others, in a hotel, in a [facility]p, living outside on the street, on a [...] documented as of this encounter Care Teams Civil Engineer Land Development Relationship Specialty Start Date End Date Aileen Howard DO [address] [place] [address] PCP - General Family Medicine 01/18/25 documented as of this encounter
--- OUTSIDE RECORDS SUMMARY | 2025-02-02 08:48 | XMS_ITS | Clinical Summary ---
Author Organization [employer] Address 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 Date Type Department Care Team Description 01/29/2025 Travel 01/29/2025 Telephone [facility] [address] [place] [phone] Aileen Howard DO Referral 01/27/2025 11:15 AM EDT Office Visit [facility] [address] [place] [phone] Aileen Howard DO Essential hypertension (Primary Dx); Peripheral vascular disease (CMS/HCC); Prediabetes; Palpitations; Chronic pain of right upper extremity; Paresthesia of right arm and leg; Abnormal mammogram; Paresthesia of tongue; Anxiety; Daily headache; Abnormal brain MRI 01/27/2025 Patient Outreach [facility] [address] [place] [phone] Aileen Howard DO Care Coordination (CHW outreach for SDOH PT-1 and food needs-referral completed /) 01/27/2025 Travel 01/27/2025 Population Health Risk Score Community [facility] () Department [address] [place] [phone] Provider, Population Health Generic 01/18/[address] [phone] Aileen Howard DO Prediabetes 01/12/[address] [phone] Aileen Howard DO New patient appointment (Pt walked in requesting a new patient appt . Pt was seen by in walk in on 01/07/2025 and states told her she is willing to take her as a new patient due to her conditions . Pt can be reached at [phone].) 01/07/2025 9:00 AM EDT Office Visit [facility] [address] [place] [phone] Aileen Howard DO Essential hypertension (Primary Dx); Prediabetes; Palpitations; Chronic pain of right upper extremity; Paresthesia of right upper and lower extremity; Paresthesia of tongue; Abnormal mammogram; PVD (peripheral vascular disease) ([facility]) 01/07/2025 Orders Only [facility] [address] [place] [address] Aileen Howard DO from Last 3 Months [...] Procedure Name Priority Date/Time Associated Diagnosis Comments T-SPOT(R).TB Routine 01/29/2025 8:22 AM EDT Abnormal brain MRI C-REACTIVE PROTEIN Routine 01/29/2025 8: 22 AM EDT Abnormal brain MRI SED RATE BY MODIFIED WESTERGREN Routine 01/29/2025 8:22 AM EDT Abnormal brain MRI RHEUMATOID FACTOR Routine 01/29/2025 8:2 2 AM EDT Abnormal brain MRI LYME DISEASE AB W/REFL TO BLOT (IGG, IGM) Routine 01/29/2025 8:22 AM EDT Abnormal brain MRI BI MAMMOGRAM SCREENING TOMOSYNTHESIS BILATERAL Routine 01/13/2025 [...] EDT from Last 3 Months Results * T-SPOT??.TB (01/29/2025 8:22 AM EDT) T Spot TB Negative Negative [facility] Comment:A negative test resu lt does not exclude the possibilityof exposure to or infection with Mycobacteriumtuberculosis (M. tuberculosis). Patients with recentexposure to TB infected individuals exhibiting anegative T-SPOT.TB result should be considered forretesting within 6 weeks or if other relevant clinicalsymptoms indicate. Results from T-SPOT.TB testing mustbe used in conjunction with each individual'sepidemiological history, current medical status,and results of other diagnostic evaluations.The T-SPOT.TB test is qualitative and results arereported as positive, borderline, or negative, giventhat the test controls perform as expected. In linewith the Centers for Disease Control and Prevention's2010 recommendation to report quantitative measurementsalongside the qualitative result, the laboratoryprovides spot counts for informational purposes only.The T-SPOT.TB test should not be interpreted as aquantitative test. TS PANEL A 1 [facility] TS PANEL B 0 [facility] Negative Control Passed [facility] Positive Control Passed [facility] Comment:For additional infor mation, please refer tohttp://education.Nifty [employer] Fifty/faq/BNT904(This link is being provided for informational/educational purposes only.)THIS TEST WAS PERFORMED AT:[employer] [id number] [place] [address]NHFRTFLMICHAEL PEREZ MD,PHD 01/29/2025 8:22 AM EDT 01/29/2025 11:21 AM EDT us Aileen Howard DO LAB BLOOD ORDERABLES Final R esult [facility] [address] [place] [phone] * Sed Rate by Modified Sophia (01/29/2025 8:22 AM EDT) Pathologist [facility] Erythrocyte Sedimentation Rate 14 0 - 20 MM/HR [facility] Comment:Patients with polycy themia and many hemoglobin abnormalitiesmay have depressed sed rates whereas patients with anemiamay have elevated sed rates. Blood Venous blood specimen / Unknown 01/29/2025 8:22 AM EDT 01/29/2025 11:21 AM EDT Aileen Howard DO LAB BLOOD ORDERABLES Final R esult Performing Organization Address [facility] Co de Phone Number [facility] [address] [place] [phone] * Rheumatoid Factor (01/29/2025 8:22 AM EDT) Rheumatoid Factor <13.0 <15.0 IU/mL [facility] Blood Venous blood specimen / Unknown 01/29/2025 8:22 AM EDT 01/29/2025 11:21 AM EDT Aileen Howard DO LAB BLOOD ORDERABLES Final R esult Performing Organization Address [facility] de Phone Number [facility] [address] [place] [phone] * (ABNORMAL) C-reactive Protein (01/29/2025 8:22 AM EDT) C Reactive Protein 2.49(H) < or = 0.50 mg/dL [facility] Blood Venous blood specimen / Unknown 01/29/2025 8:22 AM EDT 01/29/2025 11:21 AM EDT Aileen Howard LAB BLOOD ORDERABLES Final R esult Performing Organization Address [facility] Co de Phone Number [facility] [address] [place] [phone] * BI Mammogram Screening Tomosynthesis Bilateral (01/13/2025 8:45 AM EDT) Anatomical Region Laterality Modality Breast Bilateral Mammography 01/13/2025 8:45 AM EDT Narrative 01/13/2025 11:32 AM EDT ? [facility] ? [address] ?[place], [place] [address] ? Mammography Report ? Signed ? Patient: Menendez,Haideliz ?MR#: [id number] ?? [id number] ? : 1980 ?Acct:[id number] ? Age/Sex: 44 / F ?ADM Date: 01/13/25 ? Loc: HO.MAMMO ? Attending Dr: Aileen Howard DO ? Ordering Physician: Aileen Howard DO ?Results: 0I ?? ncomplete: Needs Additional Imaging Evaluation ? Date of Service: 01/13/25 ?Follow Up: Additional Imagi ?? ng ? Procedure(s): MM tomosynthesis screening BI ?? Accession Number(s): [id number] ? cc: Aileen Howard DO ? EXAMINATION: ?? MM SCREENING DIGITAL BREAST TOMOSYNTHESIS, BILATERAL ? CLINICAL INFORMATION: ? Screening. Asymptomatic. ??Right breast pain. Patient states she was ?? being followed in [place] for the right breast but cannot obtain [...] ??[place] Araiza DO ??01/13/2025 11:29 AM EDT ?? RP ? Dictated By: ?[place] Araiza DO ? Signed By: ?<Electronically signed by [place] Araiza DO in OV> ? 01/13/25 1129 ? DD/ 0845 ? TD/TT: 01/13/25 0917 ? Automation Tester: ? Procedure Note Ronnie, Image - 01/13/2025 [facility] [address] [place] [address] Dr. Naqvi, [place] [address] Mammography Report Signed Patient: Margaux MenendezMR#: [id number] : 1980Acct:[id number] Age/Sex: 44 / FADM Date: 01/13/25 Loc: HO.MAMMO Attending Dr: Aileen Howard DO Ordering Physician: Aileen Howardults: 0I ncomplete: Needs Additional Imaging Evaluation Date of Service: 01/13/25Follow Up: Additional Imagi ng Procedure(s): MM tomosynthesis screening BI Accession Number(s): [id number] cc: Aileen Howard DO EXAMINATION: MM SCREENING DIGITAL BREAST TOMOSYNTHESIS, BILATERAL CLINICAL INFORMATION: Screening. Asymptomatic. Right breast pain. Patient states she was being followed in [place] for the right breast but cannot obtain [...] 01/13/25 1129 DD/ 0845 TD/TT: 01/13/25 0917 Automation Tester: us Aileen Howard DO IMG BI PROCEDURES Final Resu lt * MR Cervical Spine w/o Contrast (01/12/2025 7:30 PM EDT) Anatomical Region Laterality Modality Spine, C-spine Magnetic Resonan ce 01/12/2025 7:30 PM EDT Narrative 01/13/2025 8:56 AM EDT ? [facility] ?[address] ?[place] [address] ? Magnetic Resonance Report ? Signed ? Patient: Menendez,Haideliz ?MR#: [id number] ?? [id number] ? : 1980 ?Acct:[id number] ? Age/Sex: 44 / F ?ADM Date: 01/12/25 ? Loc: HO.MRI ? Attending Dr: Aileen Howard DO ? Ordering Physician: Aileen Howard DO ?? Date of Service: 01/12/25 ?? Procedure(s): MR cervical spine wo con ?? Accession Number(s): [id number] ? cc: Aileen Howard DO ? EXAMINATION: [...] Dinh MD ??01/13/2025 08:53 AM ?? EDT RP ? Dictated By: ?Octaviano Matt MD ? Signed By: ?<Electronically signed by Octaviano Blancas MD in OV> ? 01/13/25 0853 ? DD/ 1930 ? TD/TT: 01/12/252000 ? Automation Tester: ? Procedure Note Donmaryinterpreter, Image - 01/13/2025 [place] [address] Magnetic Resonance Report Signed Patient: Maureen Menendez#: [id number] : 1980Acct:[id number] Age/Sex: 44 / FADM Date: 01/12/25 Loc: HO.MRI Attending Dr: Aileen Howard DO Ordering Physician: Aileen Howard DO Date of Service: 01/12/25 Procedure(s): MR cervical spine wo con Accession Number(s): [id number] cc: Aileen Howard DO EXAMINATION: MR CERVICAL [...] Octaviano Dinh MD 01/13/2025 08:53 AM EDT RP Dictated By: Octaviano Matt MD Signed By: <Electronically signed by Octaviano Blancas MDin OV> 01/13/25 0853 DD/ 193 TD/TT: 01/12/252000 Automation Tester: us Aileen Lee DO IMG MRI PROCEDURES Final Res ult * MR Brain w/o Contrast (01/12/2025 7:14 PM EDT) Anatomical Region Laterality Modality Brain Magnetic Resonan ce 01/12/2025 7:14 PM EDT Narrative 01/13/2025 8:51 AM EDT ? [facility] ?[address] ?[place] [address] ? Magnetic Resonance Report ? Signed ? Patient: Margaux Menendez ?MR#: [id number] ?? [id number] ? : 1980 ?Acct:[id number] ? Age/Sex: 44 / F ?ADM Date: 01/12/25 ? Loc: HO.MRI ? Attending Dr: Aileen Howard DO ? Ordering Physician: Ailene Howard DO ?? Date of Service: 01/12/25 ?? Procedure(s): MR head/brain wo con ?? Accession Number(s): [id number] ? cc: Aileen Howard DO ? EXAMINATION: [...] in OV> ? 01/13/25 0848 ? DD/ 1914 ? TD/TT: 01/12/251943 ? Automation Tester: ? Procedure Note Josephraoivángus, Image - 01/13/2025 [place] [address] Magnetic Resonance Report Signed Patient: Maureen Menendez#: [id number] : 1980Acct:[id number] Age/Sex: 44 / FADM Date: 01/12/25 Loc: HO.MRI Attending Dr: Aileen Howard DO Ordering Physician: Aileen Howard DO Date of Service: 01/12/25 Procedure(s): MR head/brain wo con Accession Number(s): [id number] cc: Aileen Howard DO EXAMINATION: MR BRAIN [...] Octaviano Dinh MD 01/13/2025 08:48 AM EDT RP Dictated By: Octaviano Matt MD Signed By: <Electronically signed by Octaviano Blancas MDin OV> 01/13/25 0848 DD/ 13 TD/TT: 01/12/251943 Automation Tester: Aileen Howard DO IMG MRI PROCEDURES Final Res ult * Vitamin D, 25-Hydroxy, Total, Immunoassay (01/08/2025 8:10 AM EDT) Vitamin D 25-OH Total 41.9 >30 ng/mL [facility] Comment: Health Based Reference Values*< 20 ??ng/mL ??Dvkstaoay48-44 ng/mL ??Insufficient> 30 ??ng/mL ??Sufficient*Britni FLORES. N [...] EDT 01/08/2025 11:15 AM EDT Aileen Lee LAB BLOOD ORDERABLES Final R esult Performing Organization Address [facility] Co de Phone Number [facility] [address] [place] [phone] * Vitamin B12 (Cobalamin) and Folate Panel, Serum (01/08/2025 8:10 AM EDT) Vitamin B12 678 200 - 900 pg/mL [facility] Comment:NORMAL 200-900 PG/ML INDETERMINATE 160-199 PG/ML DEFICIENT < 160 PG/ML Folate 14.3 > or = 4.0 ng/mL [facility] Comment:Reference Values:> o r = [...] R esult Performing Organization Address [facility] Co de Phone Number [facility] [address] [place] [phone] * Albumin, Random Urine W/Creatinine (01/08/2025 8:10 AM EDT) Creatinine, Urine 140.84 mg/dL [facility] Microalbumin Urine 13.0 mg/L [facility] Microalbum Creatinine Ratio Ur 9.2 <30 ug/mg cr [facility] Comment:Albumin/Creatinine R atio Reference Ranges: Normal: < 30 ug/mg creatinine Microalbuminuria: 30 - 300 ug/mg creatinineClinical Albuminuria: > 300 ug/mg creatinine Urine (Urine, Random) 01/08/2025 8:10 AM EDT 01/08/2025 11:14 AM EDT Aileen Howard DO LAB URINE ORDERABLES Final R esult [facility] [address] [place] [phone] * (ABNORMAL) CBC auto differential (01/08/2025 8:10 AM EDT) White Blood Count 10.4 4.8 - 10.8 X10*3/uL [facility] Red Blood Count 5.14 4.20 - 5.50 X10*6/uL [facility] Hemoglobin 12.3 12.0 - 16.0 g/dl [facility] Hematocrit 41.0 37.0 - 47.0 % [facility] Mean Corpuscular Volume 79.8(L) 80.0 - 98.0 fL [facility] Mean Corpuscular Hemoglobin 23.9(L) 27.0 - 33.0 pg [facility] Mean Corpuscular HGB Conc 30.0(L) 31.0 - 35.0 g/dl [facility] Red Cell Distribution Width 14.7 11.0 - 16.0 % [facility] Platelet Count 431(H) 160 - 400 X10*3/uL [facility] Mean Platelet Volume 10.6 9.4 - 12.3 fL [facility] Neutrophils Percent Auto 75.6(H) 45 - 73 % [facility] Imm Gran Pct Auto 0.4 0.0 - 0.4 % [facility] Lymphocytes Percent Auto 16.2(L) 20 - 40 % [facility] Monocytes Percent Auto 6.0 2 - 11 % [facility] Eosinophils Percent Auto 1.4 0 - 4 % [facility] Basophils Percent Auto 0.4 0 - 2 % [facility] NRBC Pct Auto 0.0 0.0 - 0.2 /100WBC [facility] Neutrophils Absolute Auto 7.9 2.0 - 8.3 x10*3/uL [facility] Imm Gran Abs Auto 0.04(H) 0.00 - 0.03 X10*3/uL [facility] Lymphocytes Absolute Auto 1.7 1.2 - 4.9 X10*3/uL [facility] Monocytes Absolute Auto 0.6 0.1 - 1.2 X10*3/uL [facility] Eosinophils Absolute Auto 0.2 0.0 - 0.4 X10*3/uL [facility] Basophils Absolute Auto 0.0 0.0 - 0.2 X10*3/uL [facility] NRBC Abs Auto 0.000 0.0 - 0.012 X10*3/uL [facility] Blood Venous blood specimen / Unknown 01/08/2025 8:10 AM EDT 01/08/2025 11:15 AM EDT Aileen Howard DO LAB BLOOD ORDERABLES Final R esult Performing Organization Address City/[facility]/ZIP Co de Phone Number [facility] [address] [place] [phone] * Hepatitis C Antibody with Reflex to HCV, RNA, Quantitative, Real-Time PCR (01/08/2025 8:10 AM EDT) Hepatitis C Antibody Nonreactive Nonreactive [facility] Comment:Antibodies to HCV no t detected; does not exclude early acuteHCV infection. Blood Venous blood specimen / Unknown 01/08/2025 8:10 AM EDT 01/08/2025 11:15 AM EDT Aileen Howard [employer] LAB BLOOD ORDERABLES Final R esult [facility] [address] [place] [phone] * (ABNORMAL) Iron And Total Iron Binding Capacity (01/08/2025 8:10 AM EDT) Pathologist [facility] Iron 45 30 - 160 mcg/dL [facility] Total Iron Binding Capacity 340 228 - 428 mcg/dL [facility] Percent Iron Saturation 13(L) 15 - 50 % [facility] Unsaturated Iron Binding 295 ug/dL [facility] Blood Venous blood specimen / Unknown 01/08/2025 8:10 AM EDT 01/08/2025 11:15 AM EDT Aileen Howard DO LAB BLOOD ORDERABLES Final R esult Performing Organization Address [facility] Co de Phone Number [facility] [address] [place] [phone] * Hepatitis A Antibody, Total (01/08/2025 8:10 AM EDT) [facility] Hepatitis A Antibody IgG Nonreactive Nonreactive [facility] Blood Venous blood specimen / Unknown 01/08/2025 8:10 AM EDT 01/08/2025 11:15 AM EDT Aileen Howard DO LAB BLOOD ORDERABLES Final R esult Performing Organization Address [facility] de Phone Number [facility] [address] [place] [phone] * Chlamydia/N. Gonorrhoeae RNA, TMA, Urogenitial (01/08/2025 8:10 AM EDT) [facility] CT PCR NOT DETECTED Not Detect. [facility] Comment:A not detected test result [...] psychologicalconsequences. NG PCR NOT DETECTED Not Detect. [facility] Comment:A not detected test result [...] AM EDT 01/08/2025 11:14 AM EDT Narrative [facility] - 01/08/2025 2:27 PM EDT Urine us Aileen Howard DO LAB MICROBIOLOGY - GENERAL O RDERABLES Final Result [facility] [address] [place] [phone] * Hepatitis B surface antigen, EIA (01/08/2025 8:10 AM EDT) Hepatitis B Surface Ag Negative Negative [facility] Blood Venous blood specimen / Unknown 01/08/2025 8:10 AM EDT 01/08/2025 11:15 AM EDT us Aileen Haquealejandraquan DO LAB BLOOD ORDERABLES Final R esult [facility] [address] [place] [phone] * Hepatitis B Core Antibody, Total (01/08/2025 8:10 AM EDT) Hepatitis B Core Antibody Nonreactive Nonreactive [facility] Blood Venous blood specimen / Unknown 01/08/2025 8:10 AM EDT 01/08/2025 11:15 AM EDT us Aileen Haquealejandraquan DO LAB BLOOD ORDERABLES Final R esult Performing Organization Address [facility] Co de Phone Number [facility] [address] [place] [phone] * RPR (Monitor) with Reflex to??Titer (01/08/2025 8:10 AM EDT) RPR (Monitor) w/Refl Titer NON-REACTI VE NON-REACT BOOGIE [facility] Comment:THIS TEST WAS PERFOR MED AT:[facility] [place] [phone] MOSER MD Rapid Plasma Reagin Ab Titer TNP [facility] Blood Venous blood specimen / Unknown 01/08/2025 8:10 AM EDT 01/08/2025 11:15 AM EDT us Aileen Lee DO LAB BLOOD ORDERABLES Final R esult Performing Organization Address City/[facility]/ZIP Co de Phone Number [facility] [address] [place] [phone] * HIV-1/2 Antigen and Antibodies, Fourth Generation, with Reflexes (01/08/2025 8:10 AM EDT) HIV AB/AG Nonreactive Nonreactive [facility] Comment:HIV-1 p24 Ag and/or HIV-1/HIV-2 Ab not detected.A test result that is nonreactive does not exclude thepossibility of exposure to or infection with HIV-1 and/orHIV-2. Nonreactive results in this assay for individualswith prior exposure to HIV-1 and/or HIV-2 may be due toantigen and antibody levels that are below the limit ofdetection of this assay.The [email or web address] HIV Ag/Ab Combo assay result andsupplemental assay results should be interpreted inconjunction with the patient's clinical presentation,history and other laboratory results. If the results areinconsistent with clinical evidence, additional testing issuggested to confirm the result. Blood Venous blood specimen / Unknown 01/08/2025 8:10 AM EDT 01/08/2025 11:15 AM EDT Aileen Howard LAB BLOOD ORDERABLES Final R esult Performing Organization Address City/[facility]/ZIP Co de Phone Number [facility] [address] [place] [phone] * Hepatitis B Surface Antibody, Qualitative (01/08/2025 8:10 AM EDT) Pathologist [facility] ~Hepatitis B Surface Antibody NONREACTIVE Nonreactive [facility] Comment:Nonreactive: < 8.00 mIU/mL Blood Venous blood specimen / Unknown 01/08/2025 8:10 AM EDT 01/08/2025 11:15 AM EDT Aileen Howard [employer] LAB BLOOD ORDERABLES Final R esult [facility] [address] [place] [phone] * TSH (01/08/2025 8:10 AM EDT) Thyroid Stimulating Hormone 2.39 0.32 - 4.0 uIU/mL [facility] Comment:TSH 3rd Generation ( [employer]) Blood Venous blood specimen / Unknown 01/08/2025 8:10 AM EDT 01/08/2025 11:15 AM EDT Aileen Lee DO LAB BLOOD ORDERABLES Final R esult Performing Organization Address City/[facility]/ZIP Co de Phone Number [facility] [address] [place] [phone] * T4, Free (01/08/2025 8:10 AM EDT) Free T4 (Free Thyroxine) 0.91 0.71 - 1.85 ng/dL [facility] Blood Venous blood specimen / Unknown 01/08/2025 8:10 AM EDT 01/08/2025 11:15 AM EDT Aileen Howard DO LAB BLOOD ORDERABLES Final R esult Performing Organization Address City/[facility]/ZIP Co de Phone Number [facility] [address] [place] [address] [phone] * Hemoglobin A1c (01/08/2025 8:10 AM EDT) Hemoglobin A1c 6.0 <6.0 % [facility] Comment:Hemoglobin A1C Refer ence Range Adults: 4.8 - 6.0 % Non diabetic: < 6.0 % Goal: < 7.0 %Additional Action Suggested: > 8.0 %Note: Hemoglobin A1c results are invalid for patients with abnormal amounts of HbF. Blood transfusions may impact the HbA1c concentration in the patient sample. Estimated Average Glucose 126 mg/dL [facility] Comment:eAG = Estimated ave rage glucose which is %A1C expressed asaverage glucose, using the formula of the C7A-ClivlzeOlkerdf Glucose study (ADAG), Diabetes Care, Vol.31,#8,May. 2007 Blood Venous blood specimen / Unknown 01/08/2025 8:10 AM EDT 01/08/2025 11:15 AM EDT Result [facility] Aileen Howard DO LAB BLOOD ORDERABLES Final R esult Performing Organization Address City/[facility]/ZIP Co de Phone Number [facility] [address] [place] [phone] * Ferritin (01/08/2025 8:10 AM EDT) Ferritin 25 10 - 250 ng/mL [facility] Blood Venous blood specimen / Unknown 01/08/2025 8:10 AM EDT 01/08/2025 11:15 AM EDT Aileen Howard DO LAB BLOOD ORDERABLES Final R esult Performing Organization Address [facility] Co de Phone Number [facility] [address] [place] [address] [phone] * Hepatic Function Panel (01/08/2025 8:10 AM EDT) Bilirubin, Total 0.9 0.0 - 1.0 mg/dL [facility] Bilirubin, Direct 0.3 0.0 - 0.5 mg/dL [facility] Aspartate Amino Transferase 18 5 - 31 U/L [facility] Alanine Aminotransferase 20 0 - 31 U/L [facility] Total Protein 7.9 6.5 - 8.0 g/dL [facility] Albumin Level 4.2 3.5 - 5.0 g/dL [facility] Alkaline Phosphatase 91 39 - 117 U/L [facility] Blood Venous blood specimen / Unknown 01/08/2025 8:10 AM EDT 01/08/2025 11:15 AM EDT Aileen Howard DO LAB BLOOD ORDERABLES Final R esult Performing Organization Address [facility] Co de Phone Number [facility] [address] [place] [address] [phone] * (ABNORMAL) Lipid Panel, Standard (01/08/2025 8:10 AM EDT) Triglycerides 77 <150 mg/dL [facility] Comment:Desirable Triglyceri de: less than 150 mg/dLBorderline High Triglyceride 150-199 mg/dLHigh Triglyceride: 200-499 mg/dLVery High Triglyceride: greater than or equal to 5OO mg/dL Cholesterol 200(H) <200 mg/dL [facility] Comment:Desirable Cholestero l: less than 200 mg/dLBorderline High Cholesterol: 200-239 mg/dLHigh Cholesterol: greater than 239 mg/dL LDL Cholesterol Calculated 125(H) <100 mg/dL [facility] Comment:Desirable LDL: less than 100 mg/dLNear Optimal/Above Optimal LDL: 110- 129 mg/dLBorderline High LDL: 130-159 mg/dLHigh LDL: 160-189 mg/dLVery High LDL: greater than or equal to 190 mg/dL HDL Cholesterol 60 >40 mg/dL [facility] Comment:Desirable HDL: great er than 40 mg/dL Note: This HDL assay may give artificially low results in patients with liver disease. Blood Venous blood specimen / Unknown 01/08/2025 8:10 AM EDT 01/08/2025 11:15 AM EDT us Aileen Howard DO LAB BLOOD ORDERABLES Final R esult [facility] [address] [place], [place] [phone] * (ABNORMAL) Basic Metabolic Panel (01/08/2025 8:10 AM EDT) Sodium 140 135 - 145 mmol/L [facility] Potassium 4.2 3.3 - 5.1 mmol/L [facility] Chloride 104 96 - 108 mmol/L [facility] Carbon Dioxide 28 22 - 29 mmol/L [facility] Anion Gap 12 12 - 20 [facility] Urea Nitrogen (BUN) 19(H) 9 - 16 mg/dL [facility] Creatinine, Serum 0.63 0.5 - 1.4 mg/dL [facility] Estimated Glomerular Filt Rate >60 [facility] Comment:Chronic Kidney Disea se: Estimated GFR < 60 mL/min/[id number] Kidney Disease: Estimated GFR < 15 mL/min/1.73m2 Glucose 130(H) 60 - 115 mg/dL [facility] Calcium 9.3 8.4 - 10.2 mg/dL [facility] Blood Venous blood specimen / Unknown 01/08/2025 8:10 AM EDT 01/08/2025 11:15 AM EDT us Aileen Lee DO LAB BLOOD ORDERABLES Final R esult [facility] [address] [place] [phone] * XR CERVICAL SPINE 3V (01/07/2025 9:54 AM EDT) Anatomical Region Laterality Modality Abdomen Radiographic Lynette ging 01/07/2025 9:54 AM EDT Narrative 01/07/2025 10:41 AM EDT ?[facility] ?[address] ?[place] [address] ?XRay Report ? Signed ? Patient: Margaux Menendez ?MR#: [id number] ?? [id number] ? : 1980 ?Acct:[id number] ? Age/Sex: 44 / F ?ADM Date: 01/07/25 ? Loc: HO.HHCX ? Attending Dr: Aileen Howard DO ? Ordering Physician: Aileen Howard DO ?? Date of Service: 01/07/25 ?? Procedure(s): XR cervical spine 3V ?? Accession Number(s): [id number] ? cc: Aileen Howard DO ? EXAMINATION: [...] DD/ 0954 ? TD/TT: 01/07/25 1000 ? Automation Tester: ? Procedure Note Federicobhavani, Image - 01/07/2025 [place] [address] XRay Report Signed Patient: Margaux MenendezMR#: [id number] : 1980Acct:[id number] Age/Sex: 44 / FADM Date: 01/07/25 Loc: HO.HHCX Attending Dr: Aileen Howard DO Ordering Physician: Aileen Howard DO Date of Service: 01/07/25 Procedure(s): XR cervical spine 3V Accession Number(s): [id number] cc: Aileen Howard DO EXAMINATION: XR CERVICAL [...] 01/07/25 1039 DD/ 0954 TD/TT: 01/07/25 1000 Automation Tester: Aileen Howard DO IMG XR PROCEDURES Edited Res ult - Final from Last 3 Months Insurance [facility] C3 Care Teams 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
== END 2025-02-02 08:27 | disposition home or self-care (01) ==
LOC: HO.MAMMO 08:26
PROVIDERS: PCP Family Medicine; Visit Provider Family Medicine
DX: R92.8 Other abnormal and inconclusive findings on diagnostic imaging of breast (principal); N64.89 Other specified disorders of breast
CPT/HCPCS: 76642; 77062; 77066

== ENCOUNTER → 2025-02-02 08:30 | Outpatient (BNV) | payer MEDICAID, SELFPAY | PROVIDERS: PCP Family Medicine; Visit Provider Internal Medicine | DX: R92.8 Other abnormal and inconclusive findings on diagnostic imaging of breast (principal) | CPT/HCPCS: 76642; 77062; 77066 ==

== ENCOUNTER 2025-02-08 13:39 | Outpatient (REF) | payer MEDICAID, SELFPAY ==
--- NOTE | ~2025-02-08 | XR_ITS ---
EXAMINATION: XR CHEST 2 VIEWS HISTORY: possible sarcoid findings on MR brain for eval COMPARISON: There are no prior studies for comparison. FINDINGS: PA and lateral views of the chest are submitted. The lungs are expanded and clear. There is no pleural effusion, pneumothorax, or pulmonary vascular congestion. The heart is normal in size. The bones are intact. XR/XR chest 2V IMPRESSION: Normal examination of the chest. Electronically signed by: Dayron Yap MD 02/08/2025 02:29 PM EDT
--- OUTSIDE RECORDS SUMMARY | 2025-02-08 15:46 | XMS_ITS | Encounter Summary ---
Author Organization [employer] Address [address] [place] [address] Care Team Providers Care Hand I Thermal Cutter Name Role Phone Aileen Howard DO Primary Care Provider [phone] Reason for Visit * Reason Onset Date Comments Med Refill 02/05/2025 Encounter Details Date Type Department Care Team ([facility] st Contact Info) Description 02/05/2025 Refill [facility] [address] [place] [address] Aileen Howard DO [address] [place] [address] Prediabetes Social History Tobacco Use Types Packs/Day Years [...] with others, in a hotel, in a custodial, living outside on the street, on a [...] encounter Miscellaneous Notes * Telephone Encounter - Carlos Castorena - 02/05/2025 1:51 PM EDT TC from pt requesting medication refill. Medications needing refill : zolpidem (Ambien) 10 MG tablet Lancets misc To be sent to: [facility] - [place], [place] - [address] documented in this encounter Plan of Treatment Not on file documented as of this encounter Visit Diagnoses Diagnosis Prediabetes Other abnormal glucose documented in this encounter Additional Health Concerns Assessment Noted Time PHQ-9 Depression Total Score: 8 01/28/20 12:38 PM EDT documented as of this encounter Care Teams Hand I Thermal Cutter Relationship Specialty Start Date End Date Aileen Howard DO [address] [place] [address] PCP - General Family Medicine 01/18/25 documented as of this encounter
--- OUTSIDE RECORDS SUMMARY | 2025-02-08 15:46 | XMS_ITS | Encounter Summary ---
Author Organization [employer] Address [address] [place] [address] Care Team Providers Care Ballistics Expert Name Role Phone ShabnamAileen beltre Primary Care Provider Encounter Details Date Type Department Care Team (Latest Contact Info) Description 02/08/2025 Travel Social History Tobacco Use Types Packs/Day [...] with others, in a hotel, in a fci, living outside on the street, on a [...] documented as of this encounter Care Teams Ballistics Expert Relationship Specialty Start Date End Date Aileen Howard DO [address] [place] [address] PCP - General Family Medicine 01/18/25 documented as of this encounter
--- OUTSIDE RECORDS SUMMARY | 2025-02-08 15:46 | XMS_ITS | Clinical Summary ---
Author Organization [facility] [employer] Address [address] [place] [address] Care Team Providers Care Machine Trimmer Name Role Phone ShabnamAileen beltre Primary Care Provider [phone] Allergies No known active allergies Medications * This document contains information received from the source organization and may not represent a complete record from that organization. baclofen (Lioresal) 10 MG tablet Take 1 tablet (10 mg) by mouth if needed at bedtime for muscle spasms. 30 tablet 3 01/08/20 25 Active lisinopril-hyd roCHLOROthiazi de (Zestoretic) 10-12.5 MG tablet Take 1 tablet by mouth Once per day. 30 tablet 3 01/08/20 026 Active omeprazole OTC (PriLOSEC OTC) 20 MG EC tablet Take 1 tablet (20 mg) by mouth before breakfast. Do not crush, chew, or split. 30 tablet 3 01/08/20 Active cilostazol (Pletal) 50 MG tablet Take 1 tablet (50 mg) by mouth 2 times daily. 60 tablet 3 01/08/20 25 026 Active nabumetone (Relafen) 500 MG tablet Take 1 tablet (500 mg) by mouth if needed in the morning and at bedtime for mild pain. 60 tablet 1 01/08/20 25 026 Active aspirin 81 MG chewable tablet Chew 1 tablet (81 mg) Once per day. 30 tablet 3 01/08/20 026 Active atorvastatin (Lipitor) 40 MG tablet Take 1 tablet (40 mg) by mouth at bedtime. 30 tablet 3 01/08/20 25 026 Active Blood Glucose Monitoring Suppl (FreeStyle Ceres Lite) w/Device kitIndications :Prediabetes Use to test blood sugar one time daily 1 kit 01/20/20 25 Active Alcohol Swabs 70 % padsIndication s:Prediabetes Use to test blood sugar one time daily 100 each 3 01/20/20 25 Active FREESTYLE LITE test stripIndicatio ns:Prediabetes Use to test blood sugar one time daily 100 each 01/20/20 25 026 Active gabapentin (Neurontin) 300 MG capsule Take 1 capsule (300 mg) by mouth 3 times daily. 90 capsule 11 01/28/20 25 026 Active hydrOXYzine pamoate (Vistaril) 50 MG capsule Take 1 capsule (50 mg) by mouth every 6 (six) hours if needed for anxiety. 40 capsule 1 01/28/20 25 026 Active melatonin 5 MG tablet Take 1-2 tablets (5-10 mg) by mouth if needed at bedtime (insomnia). 60 tablet 01/28/20 25 Active acetaminophen (Tylenol 8 Hour) 650 MG ER tablet Take 1 tablet (650 mg) by mouth every 8 (eight) hours if needed for mild pain or headaches. Do not crush, chew, or split. 40 tablet 1 01/28/20 25 025 Active Lancets miscIndication s:Prediabetes Use to test blood sugar one time daily 100 each 02/06/20 25 Active zolpidem (Ambien) 10 MG tablet Take 1 tablet (10 mg) by mouth if needed at bedtime for sleep. 30 tablet 02/06/20 25 025 Active clotrimazole (Lotrimin) 1 % cream Apply topically if needed in the morning and at bedtime (rash) for up to 28 days. 60 g 2 02/09/20 25 025 Active ketoconazole (NIZOral) 2 % shampoo Apply topically 2 (two) times a week. 240 mL 02/09/20 25 Active amitriptyline (Elavil) 10 MG tablet Take 1 tablet (10 mg) by mouth at bedtime. 30 tablet 3 02/09/20 25 025 Active traMADol (Ultram) 50 MG tabletIndicati ons:Daily headache Take 1 tablet (50 mg) by mouth every 6 (six) hours if needed for severe pain for up to 1 day. 4 tablet 02/09/20 25 025 Active cetirizine (ZyrTEC) 10 MG tablet Take 1 tablet (10 mg) by mouth Once per day. 30 tablet 11 02/09/20 25 026 Active diphenhydrAMIN E (BENADryl) 25 MG tablet Take 2 tablets (50 mg) by mouth every 6 (six) hours if needed for itching or allergies. 30 tablet 1 02/09/20 25 025 Active EPINEPHrine (Epipen) 0.3 MG/0.3ML injection syringe Inject 0.3 mL (0.3 mg) as directed 1 (one) time for 1 dose. use as directed for allergic reaction and then call 911 2 each 1 02/09/20 25 Active gabapentin (Neurontin) 100 MG capsule Take 1 capsule (100 mg) by mouth at bedtime. 30 capsule 3 01/08/20 25 025 Discontinued(Do se adjustment) zolpidem (Ambien) 10 MG tablet Take 1 tablet (10 mg) by mouth if needed at bedtime for sleep. 30 tablet 01/08/20 25 025 Discontinued(Re order (will not trigger notification to Pharmacy)) hydrOXYzine pamoate (Vistaril) 25 MG capsule Take 1 capsule (25 mg) by mouth if needed at bedtime for anxiety (insomnia) for up to 10 days. 30 capsule 3 01/08/20 025 Discontinued(Do se adjustment) Lancets miscIndication s:Prediabetes Use to test blood sugar one time daily 100 each 3 01/20/20 25 025 Discontinued(Re order (will not trigger notification to Pharmacy)) Active Problems Problem Noted Date Diagnosed Date Paresthesia of right arm and leg 02/08/2025 Paresthesia of tongue 02/08/2025 Breast cyst, right 02/08/2025 Daily headache 02/08/2025 Essential hypertension 01/27/2025 Peripheral vascular disease 01/27/2025 Prediabetes 01/27/2025 Anxiety 01/27/2025 Chronic pain of right upper extremity 01/27/2025 Encounters * This document contains information received from the source organization and may not represent a complete record from that organization. Date Type Department Care Team Description 02/08/2025 12:00 PM EDT Office Visit [facility] [place] [phone] Aileen Howard DO Chronic pain of right upper extremity (Primary Dx); Paresthesia of right arm and leg; Paresthesia of tongue; Prediabetes; Anxiety; Daily headache; Abnormal brain MRI; Rash; Swelling of upper lip; Breast cyst, right 02/08/2025 Travel 02/05/2025 Refill [facility] ROBIN Matthews40 Aileen Howard DO Prediabetes 02/05/2025 Telephone [facility] ROB[facility] [place]40 Aileen Howard DO Referral 02/03/2025 Telephone [facility] [place] [address] Aileen Howard DO Error (VOID this visit) 02/02/2025 Telephone [place] [address] Aileen Howard DO Results 02/02/2025 Orders Only [facility] [address] Aileen Howard DO 01/29/2025 Travel 01/29/2025 Telephone [facility] [place] [address] Aileen Howard DO Referral 01/27/2025 11:15 AM EDT Office Visit [place] [address] Aileen Howard DO Essential hypertension (Primary Dx); Peripheral vascular disease (CMS/HCC); Prediabetes; Palpitations; Chronic pain of right upper extremity; Paresthesia of right arm and leg; Abnormal mammogram; Paresthesia of tongue; Anxiety; Daily headache; Abnormal brain MRI 01/27/2025 Patient Outreach [facility] [place] [address] Aileen Howard DO Care Coordination (CHW outreach for SDOH PT-1 and food needs-referral completed /) 01/27/2025 Travel 01/27/2025 Population Health Risk Score [facility] () Department [address] [place] [phone] Provider, Population Health Generic 01/18/2025 Refill [facility] [address] [place] [phone] Aileen Howard DO Prediabetes 01/12/2025 Telephone [facility] [address] [place] [phone] Aileen Howard DO New patient appointment (Pt walked in requesting a new patient appt . Pt was seen by in walk in on 01/07/2025 and states told her she is willing to take her as a new patient due to her conditions . Pt can be reached at [phone].) 01/07/2025 9:00 AM EDT Office Visit [facility] [address] [place] [phone] Aileen Howard DO Essential hypertension (Primary Dx); Prediabetes; Palpitations; Chronic pain of right upper extremity; Paresthesia of right upper and lower extremity; Paresthesia of tongue; Abnormal mammogram; PVD (peripheral vascular disease) ([facility]) 01/07/2025 Orders Only [facility] [address] [place] [id number] Aileen Howard DO from Last 3 Months [...] with others, in a hotel, in a correction, living outside on the street, on a [...] Sign Reading Time Taken Comments Blood Pressure 110/60 02/08/2025 12:32 PM EDT Pulse 85 02/08/2025 12:32 PM EDT Temperature 36.2 ??C (97.1 ??F) 02/08/2025 12:32 PM E DT Respiratory Rate 20 02/08/2025 12:32 PM EDT Oxygen Saturation 98% 02/08/2025 12:32 PM EDT Inhaled Oxygen Concentration - - Weight 76.2 kg (168 lb) 02/08/2025 12:32 PM EDT Height 157.5 cm (5' 2 ) 02/08/2025 12:32 PM EDT Body Mass Index 30.73 02/08/2025 12:32 PM EDT Plan of Treatment Health Maintenance Due Date Last Done Comments CT Colonography 1980 Colonoscopy 1980 Colorectal Cancer Screening 1980 FIT DNA/Cologuard 1980 FIT 1980 FOBT 1980 Sigmoidoscopy 1980 Alcohol/Substance Use Screening 1992 Family Planning (PISQ) 02/03/1995 DTaP/Tdap/Td Vaccines (1 - Tdap) 02/03/1999 Hepatitis B Vaccines (1 of 3 - 19+ 3-dose series) 02/03/1999 Pneumococcal Vaccine: Pediatrics (0 to 5 Years) and At-Risk Patients (6 to 49) Years) (1 of 2 - PCV) 02/03/1999 Pap Smear 02/03/2001 Cervical Cancer Screening 02/03/2010 HPV/Cotest 02/03/2010 COVID-19 Vaccine (1 - 2023-2 5 season) 2024 Influenza Vaccine (#1) 2024 Diabetes: Hemoglobin A1C 01/08/2026 01/08/2025 Depression Screening 01/27/2026 01/27/2025, 01/27/2025 SDOH Screening 01/27/2026 01/27/2025 Mammogram 02/02/2026 02/02/2025, 02/02/2025, 01/13/2025 Tobacco Screening 02/08/2026 02/08/2025 Lipid Panel 01/08/2030 01/08/2025 Zoster Vaccines (1 [...] Name Priority Date/Time Associated Diagnosis Comments XR CHEST 2 VIEWS Routine 02/08/2025 1:43 PM EDT Abnormal brain MRI BI US BREAST LIMITED BILATERAL Routine 02/02/2025 9:15 AM EDT BI MAMMOGRAM DIAGNOSTIC TOMOSYNTHESIS BILATERAL Routine 02/02/2025 8:31 AM EDT Abnormal mammogram FAAILYIULZQ-[id number]-LPLETLQL NG ENZYME Routine 01/29/2025 8:22 AM EDT Abnormal brain MRI T-SPOT(R).TB Routine 01/29/2025 8:22 AM EDT Abnormal brain MRI C-REACTIVE PROTEIN Routine 01/29/2025 8: 22 AM EDT Abnormal brain MRI SED RATE BY MODIFIED WESTERGREN Routine 01/29/2025 8:22 AM EDT Abnormal brain MRI RHEUMATOID FACTOR Routine 01/29/2025 8:2 2 AM EDT Abnormal brain MRI LYME DISEASE AB W/REFL TO BLOT (IGG, IGM) Routine 01/29/2025 8:22 AM EDT Abnormal brain MRI BRENDAN SCREEN, IFA, W/REFL TITER AND PATTERN Routine 01/29/2025 8:22 AM EDT Abnormal brain [...] from Last 3 Months Results * XR Chest 2 Views (02/08/2025 1:43 PM EDT) Anatomical Region Laterality Modality Chest Radiographic Lynette ging 02/08/2025 1:43 PM EDT Narrative 02/08/2025 2:32 PM EDT ? [facility] ?[address] ?[place] [address] ?XRay Report ? Signed ? Patient: Shon,Bryceyahir ?MR#: [id number] ?? [id number] ? : 1980 ?Acct:[id number] ? Age/Sex: 45 / F ?ADM Date: 02/08/25 ? Loc: HO.HHCL ? Attending Dr: Aileen Howard DO ? Ordering Physician: Aileen Howard DO ?? Date of Service: 02/08/25 ?? Procedure(s): XR chest 2V ?? Accession Number(s): [id number] ? cc: Aileen Howard DO ? EXAMINATION: ??XR CHEST 2 VIEWS ? HISTORY: possible sarcoid findings on MR brain for eval ? COMPARISON: There are no prior studies for comparison. ? FINDINGS: ??PA and lateral views of the chest are submitted. The lungs ?? are expanded and clear. ??There is no pleural effusion, pneumothorax, or ?? pulmonary vascular congestion. ??The heart is normal in size. ??The bones ?? are intact. ? XR/XR chest 2V ?? IMPRESSION: ?? Normal examination of the chest. ? Electronically signed by: ??Dayron Yap MD ??02/08/2025 02:29 PM EDT ?? RP ? Dictated By: ?Dayron Yap MD ? Signed By: ?<Electronically signed by Dayron Yap MD in OV> ?02/08/25 1429 ? DD/ 1343 ? TD/TT: 02/08/25 1355 ? Material Attendant: ? Procedure Note Ronnie, Dimitri - 02/08/2025 [address] [place] [address] XRay Report Signed Patient: Margaux Menendez#: [id number] : 1980Acct:[id number] Age/Sex: 45 / FADM Date: 02/08/25 Loc: HO[facility] Attending Dr: Aileen Howard DO Ordering Physician: Aileen Howard DO Date of Service: 02/08/25 Procedure(s): XR chest 2V Accession Number(s): [id number] cc: Aileen Howard DO EXAMINATION: XR CHEST 2 VIEWS HISTORY: possible sarcoid findings on MR brain for eval COMPARISON: There are no prior studies for comparison. FINDINGS: PA and lateral views of the chest are submitted. The lungs are expanded and clear. There is no pleural effusion, pneumothorax, or pulmonary vascular congestion. The heart is normal in size. The bones are intact. XR/XR chest 2V IMPRESSION: Normal examination of the chest. Electronically signed by: Dayron Yap MD 02/08/2025 02:29 PM EDT Dictated By: Dayron Yap MD Signed By: <Electronically signed by Dayron Yap MD in OV> 02/08/25 1429 DD/ 1343 TD/TT: 02/08/25 1355 Material Attendant: Aileen Howard DO IMG XR PROCEDURES Edited Res ult - Final * BI US Breast Limited Bilateral (02/02/2025 9:15 AM EDT) Anatomical Region Laterality Modality Breast Bilateral Ultrasound 02/02/2025 9:15 AM EDT Narrative 02/02/2025 10:20 AM EDT ? [facility] ? [address] ?[place] [address] ? Ultrasound Report ? Signed ? Patient: Menendez,Haideliz ?MR#: [id number] ?? [id number] ? : 1980 ?Acct:[id number] ? Age/Sex: 44 / F ?ADM Date: 04/08/25 ? Loc: HO.MAMMO ? Attending Dr: Aileen Howard DO ? Ordering Physician: Aileen Howard DO ?? Date of Service: 02/02/25 ?? Procedure(s): US breast BI limited mamm only ?? Accession Number(s): [id number] ? cc: Aileen Howard DO ? EXAMINATION: ?? MM DIAGNOSTIC DIGITAL BREAST TOMOSYNTHESIS, BILATERAL ?? Bilateral Limited ultrasound. ? CLINICAL INFORMATION: ? Call back from screening for bilateral asymmetries and right breast ?? pain which comes and goes and has had it for a long time and currently ?? does not feel pain. ? COMPARISON: ?? Mammography: Comparison is made with relevant prior exams. ? TECHNIQUE: ?? Digital breast mammography with tomosynthesis is performed in both the ?? craniocaudal and mediolateral oblique views along with computer-aided ?? detection (CAD). ? FINDINGS: ?? There are scattered areas of fibroglandular density (ACR BI-RADS breast ?? composition Category b). ?? Left: ?? Previously seen asymmetry in the retroareolar region does not persist ?? on additional imaging projections and likely represented overlapping ?? breast tissue. ?? No suspicious masses calcifications or other abnormal findings. ? Targeted color Doppler ultrasound demonstrates fibroglandular breast ?? tissue scanning in the retroareolar region. There is no sonographic ?? abnormality. ? Right: ?? 4 mm oval mass in the retroareolar region persists on additional ?? imaging projections. No suspicious calcifications or other abnormal ?? findings. ? Targeted color Doppler ultrasound demonstrates a minimally complicated ?? cyst at 7:00 1 cm from nipple measuring 3 x 2 x 4 mm which correlates ?? with the oval mass on mammography and is benign. ?? There is no vascular flow. ? Results are provided to the patient at time of visit by the ?? technologist. ? US/US breast BI limited mamm only ?? IMPRESSION: ?? Left: Negative. ? Right: Benign. ?? No mammographic or sonographic abnormalities account for the patient's ?? right breast pain. Recommend clinical evaluation and follow-up. ? ASSESSMENT: ? BI-RADS BI-RADS 2 - Benign Findings ? RECOMMENDATION: ?? 1 year F/U ? This patient's information was entered into a reminder system with a ?? target due date for their next mammogram. ? Electronically signed by: ??Belle Araiza DO ??02/02/2025 10:17 AM EDT ? Dictated By: ?Belle Araiza DO ? Signed By: ?<Electronically signed by Belle Araiza, DO in OV> ? 02/02/25 1017 ? DD/ ? TD/TT: 02/02/25 0931 ? Material Attendant: ? Procedure Note Donotiváninterpreter, Image - 02/02/2025 [place] [facility] [address] [place] [address] Ultrasound Report Signed Patient: Maureen Menendez#: [id number] : 1980Acct:[id number] Age/Sex: 44 / FADM Date: 02/02/25 Loc: HO.MAMMO Attending Dr: Aileen Howard DO Ordering Physician: Aileen Howard DO Date of Service: 02/02/25 Procedure(s): US breast BI limited mamm only Accession Number(s): [id number] cc: Aileen Howard DO EXAMINATION: MM DIAGNOSTIC DIGITAL BREAST TOMOSYNTHESIS, BILATERAL Bilateral Limited ultrasound. CLINICAL INFORMATION: Call back from screening for bilateral asymmetries and right breast pain which comes and goes and has had it for a long time and currently does not feel pain. COMPARISON: Mammography: Comparison is made with relevant prior exams. TECHNIQUE: Digital breast mammography with tomosynthesis is performed in both the craniocaudal and mediolateral oblique views along with computer-aided detection (CAD). FINDINGS: There are scattered areas of fibroglandular density (ACR BI-RADS breast composition Category b). Left: Previously seen asymmetry in the retroareolar region does not persist on additional imaging projections and likely represented overlapping breast tissue. No suspicious masses calcifications or other abnormal findings. Targeted color Doppler ultrasound demonstrates fibroglandular breast tissue scanning in the retroareolar region. There is no sonographic abnormality. Right: 4 mm oval mass in the retroareolar region persists on additional imaging projections. No suspicious calcifications or other abnormal findings. Targeted color Doppler ultrasound demonstrates a minimally complicated cyst at 7:00 1 cm from nipple measuring 3 x 2 x 4 mm which correlates with the oval mass on mammography and is benign. There is no vascular flow. Results are provided to the patient at time of visit by the technologist. US/US breast BI limited mamm only IMPRESSION: Left: Negative. Right: Benign. No mammographic or sonographic abnormalities account for the patient's right breast pain. Recommend clinical evaluation and follow-up. ASSESSMENT: BI-RADS BI-RADS 2 - Benign Findings RECOMMENDATION: 1 year F/U This patient's information was entered into a reminder system with a target due date for their next mammogram. Electronically signed by: Belle Araiza DO 02/02/2025 10:17 AM EDT Dictated By: Belle Araiza DO Signed By: <Electronically signed by Belle Araiza DO in OV> 02/02/25 1017 DD/ 0915 TD/TT: 02/02/25 0931 Material Attendant: us Aileen Howard DO IMG US PROCEDURES Final Resu lt * BI Mammogram Diagnostic Tomosynthesis Bilateral (02/02/2025 8:31 AM EDT) Anatomical Region Laterality Modality Breast Bilateral Mammography 02/02/2025 8:31 AM EDT Narrative 02/02/2025 10:20 AM EDT ? [facility] ? [address] ?[place] [address] ?[phone] ? Mammography Report ? Signed ? Patient: Menendez,Haideliz ?MR#: [id number] ?? [id number] ? : 1980 ?Acct:[id number] ? Age/Sex: 44 / F ?ADM Date: 04//25 ? Loc: HO.MAMMO ? Attending Abdi Howard DO ? Ordering Physician: Aileen Howard DO ?Results: 2B ?? enign Findings ? Date of Service: 02/02/25 ?Follow Up: 1 Year From Orig ?? inal Mammogram ? Procedure(s): MM tomosynthesis diagnostic BI ?? Accession Number(s): [id number] ? cc: Aileen Howard DO ? EXAMINATION: ?? MM DIAGNOSTIC DIGITAL BREAST TOMOSYNTHESIS, BILATERAL ?? Bilateral Limited ultrasound. ? CLINICAL INFORMATION: ? Call back from screening for bilateral asymmetries and right breast ?? pain which comes and goes and has had it for a long time and currently ?? does not feel pain. ? COMPARISON: ?? Mammography: Comparison is made with relevant prior exams. ? TECHNIQUE: ?? Digital breast mammography with tomosynthesis is performed in both the ?? craniocaudal and mediolateral oblique views along with computer-aided ?? detection (CAD). ? FINDINGS: ?? There are scattered areas of fibroglandular density (ACR BI-RADS breast ?? composition Category b). ?? Left: ?? Previously seen asymmetry in the retroareolar region does not persist ?? on additional imaging projections and likely represented overlapping ?? breast tissue. ?? No suspicious masses calcifications or other abnormal findings. ? Targeted color Doppler ultrasound demonstrates fibroglandular breast ?? tissue scanning in the retroareolar region. There is no sonographic ?? abnormality. ? Right: ?? 4 mm oval mass in the retroareolar region persists on additional ?? imaging projections. No suspicious calcifications or other abnormal ?? findings. ? Targeted color Doppler ultrasound demonstrates a minimally complicated ?? cyst at 7:00 1 cm from nipple measuring 3 x 2 x 4 mm which correlates ?? with the oval mass on mammography and is benign. ?? There is no vascular flow. ? Results are provided to the patient at time of visit by the ?? technologist. ? MM/MM tomosynthesis diagnostic BI ?? IMPRESSION: ?? Left: Negative. ? Right: Benign. ?? No mammographic or sonographic abnormalities account for the patient's ?? right breast pain. Recommend clinical evaluation and follow-up. ? ASSESSMENT: ? BI-RADS BI-RADS 2 - Benign Findings ? RECOMMENDATION: ?? 1 year F/U ? This patient's information was entered into a reminder system with a ?? target due date for their next mammogram. ? Electronically signed by: ??Belle Araiza DO ??02/02/2025 10:17 AM EDT ? Dictated By: ?Belle Araiza DO ? Signed By: ?<Electronically signed by Belle Araiza, DO in OV> ? 02/02/25 1017 ? DD/ 0831 ? TD/TT: 02/02/2557 ? Material Attendant: ? Procedure Note Ronnie, Image - 02/02/2025 [place] [facility] [address] [place] [address] Mammography Report Signed Patient: Maureen Menendez#: [id number] : 1980Acct:[id number] Age/Sex: 44 / FADM Date: 02/02/25 Loc: HO.MAMMO Attending Dr: Aileen Howard DO Ordering Physician: Aileen Howardults: 2B enign Findings Date of Service: 02/02/25Follow Up: 1 Year From Orig inal Mammogram Procedure(s): MM tomosynthesis diagnostic BI Accession Number(s): [id number] cc: Aileen Howard DO EXAMINATION: MM DIAGNOSTIC DIGITAL BREAST TOMOSYNTHESIS, BILATERAL Bilateral Limited ultrasound. CLINICAL INFORMATION: Call back from screening for bilateral asymmetries and right breast pain which comes and goes and has had it for a long time and currently does not feel pain. COMPARISON: Mammography: Comparison is made with relevant prior exams. TECHNIQUE: Digital breast mammography with tomosynthesis is performed in both the craniocaudal and mediolateral oblique views along with computer-aided detection (CAD). FINDINGS: There are scattered areas of fibroglandular density (ACR BI-RADS breast composition Category b). Left: Previously seen asymmetry in the retroareolar region does not persist on additional imaging projections and likely represented overlapping breast tissue. No suspicious masses calcifications or other abnormal findings. Targeted color Doppler ultrasound demonstrates fibroglandular breast tissue scanning in the retroareolar region. There is no sonographic abnormality. Right: 4 mm oval mass in the retroareolar region persists on additional imaging projections. No suspicious calcifications or other abnormal findings. Targeted color Doppler ultrasound demonstrates a minimally complicated cyst at 7:00 1 cm from nipple measuring 3 x 2 x 4 mm which correlates with the oval mass on mammography and is benign. There is no vascular flow. Results are provided to the patient at time of visit by the technologist. MM/MM tomosynthesis diagnostic BI IMPRESSION: Left: Negative. Right: Benign. No mammographic or sonographic abnormalities account for the patient's right breast pain. Recommend clinical evaluation and follow-up. ASSESSMENT: BI-RADS BI-RADS 2 - Benign Findings RECOMMENDATION: 1 year F/U This patient's information was entered into a reminder system with a target due date for their next mammogram. Electronically signed by: Belle Araiza DO 02/02/2025 10:17 AM EDT Dictated By: Belle Araiza DO Signed By: <Electronically signed by Belle Araiza DO in OV> 02/02/25 1017 DD/ 0831 TD/TT: 02/02/25 0857 Material Attendant: us Aielen Howard DO IMG BI PROCEDURES Final Resu lt * T-SPOT??.TB (01/29/2025 8:22 AM EDT) [facility] T Spot TB Negative Negative [facility] Comment:A negative test resu lt does [...] aquantitative test. TS PANEL A 1 [facility] TS PANEL B 0 [facility] Negative Control Passed [facility] Positive Control Passed [facility] Comment:For additional infor shoshana, please refer [email or web address](This link is being provided for informational/educational purposes only.)THIS TEST WAS PERFORMED AT:[facility] Edge/Giving Assistant [id number] [place] [phone] W. MASON,MD,PHD 01/29/2025 8:22 AM EDT 01/29/2025 11:21 AM EDT Aileen Howard DO LAB BLOOD ORDERABLES Final R esult [facility] [address] [place] [phone] * Lyme Disease Ab with Reflex to Blot (IgG, IgM) (01/29/2025 8:22 AM EDT) Lyme Antibody Screen <0.90 index [facility] Comment:Index Interpretation ----- < 0.90 Negative 0.90-1.09 Equivocal > 1.09 PositiveAs recommended by the Food and Drug Administration(FDA), all samples with positive or equivocalresults in a Borrelia burgdorferi antibody screenwill be tested using a blot method. Positive orequivocal screening test results should not beinterpreted as truly positive until verified as suchusing a supplemental assay (e.g., B. burgdorferi blot).The screening test and/or blot for B. burgdorferiantibodies may be falsely negative in early stagesof Lyme disease, including the period when erythemamigrans is apparent.THIS TEST WAS PERFORMED AT:[facility] [address] [phone] MOSER MD Lyme Blot TNP [facility] 01/29/2025 8:22 AM EDT 01/29/2025 11:21 AM EDT Aileen Howard LAB BLOOD ORDERABLES Final R esult Performing Organization Address [facility] Co de Phone Number [facility] [address] [place] [phone] * Sed Rate by Modified Baldoren (01/29/2025 8:22 AM EDT) Erythrocyte Sedimentation Rate 14 0 - 20 MM/HR [facility] Comment:Patients with polycy themia and many hemoglobin abnormalitiesmay have depressed sed rates whereas patients with anemiamay have elevated sed rates. Blood Venous blood specimen / Unknown 01/29/2025 8:22 AM EDT 01/29/2025 11:21 AM EDT Aileen Howard LAB BLOOD ORDERABLES Final R esult Performing Organization Address City/[facility]/ZIP Co de Phone Number [facility] [address] [place] [phone] * Rheumatoid Factor (01/29/2025 8:22 AM EDT) Rheumatoid Factor <13.0 <15.0 IU/mL [facility] Blood Venous blood specimen / Unknown 01/29/2025 8:22 AM EDT 01/29/2025 11:21 AM EDT Aileen Howard LAB BLOOD ORDERABLES Final R esult Performing Organization Address [facility]/ZIP Co de Phone Number [facility] [address] [place] [phone] * Angiotensin -1- Converting Enzyme (01/29/2025 8:22 AM EDT) [facility] Angiotensin Converting Enzyme 19.5 9 - 67 U/L [facility] Comment:THIS TEST WAS PERFOR MED AT:[facility]/Giving Assistant [id number] [place] [address]YDETALKMICHAEL PEREZ MD,PHD Blood Venous blood specimen / Unknown 01/29/2025 8:22 AM EDT 01/29/2025 11:21 AM EDT Aileen Haquealejandraquan LAB BLOOD ORDERABLES Final R esult Performing Organization Address [facility] Co de Phone Number [facility] [address] [place] [phone] * (ABNORMAL) C-reactive Protein (01/29/2025 8:22 AM EDT) [facility] C Reactive Protein 2.49(H) < or = 0.50 mg/dL [facility] Blood Venous blood specimen / Unknown 01/29/2025 8:22 AM EDT 01/29/2025 11:21 AM EDT Aileen Howard LAB BLOOD ORDERABLES Final [facility] Performing Organization Address [facility] Co de Phone Number [facility] [address] [place] [phone] * BRENDAN Screen,IFA, with Reflex to Titer and Pattern (01/29/2025 8:22 AM EDT) Anti Nuclear Antibody Screen NEGATIVE NEGATIVE [facility] Comment:BRENDAN IFA is a first l ine screen for detecting thepresence of up to approximately 150 autoantibodies invarious autoimmune diseases. A negative BRENDAN IFA resultsuggests an BRENDAN-associated autoimmune disease is notpresent at this time, but is not definitive. If thereis high clinical suspicion for Sjogren's syndrome,testing for anti-SS-A/Ro antibody should be considered.Anti-Reta-1 antibody should be considered for clinicallysuspected inflammatory myopathies.AC-0: NegativeInternational Consensus on BRENDAN Patterns(https://doi.org/10.1515/votj-0789-2544)For additional information, please refer tohttp://education.[employer]/faq/YNC062(This link is being provided for informational/educational purposes only.)THIS TEST WAS PERFORMED AT:[facility] [place] [phone] MOSER MD BRENDAN Titer TNP [facility] BRENDAN Pattern TNP [facility] BRENDAN TITER 2 (REF LAB) TNP [facility] BRENDAN Pattern 2 TNP [facility] BRENDAN TITER 3 [facility] BRENDAN PATTERN 3 TNP [facility] Blood Venous blood specimen / Unknown 01/29/2025 8:22 AM EDT 01/29/2025 11:21 AM EDT Aileen Howard DO LAB BLOOD ORDERABLES Final R esult [facility] [address] [place] [phone] * BI Mammogram Screening Tomosynthesis Bilateral (01/13/2025 8:45 AM EDT) Anatomical Region Laterality Modality Breast Bilateral Mammography 01/13/2025 8:45 AM EDT Narrative 01/13/2025 11:32 AM EDT ? [facility] ? [address] ?[place] [address] ? Mammography Report ? Signed ? Patient: Menendez,Haideliz ?MR#: [id number] ?? [id number] ? : 1980 ?Acct:[id number] ? Age/Sex: 44 / F ?ADM Date: 01/13/25 ? Loc: HO.MAMMO ? Attending Dr: Aileen Howard DO ? Ordering Physician: Aileen Howard DO ?Results: 0I ?? ncomplete: Needs Additional Imaging Evaluation ? Date of Service: 01/13/25 ?Follow Up: Additional Imagi ?? ng ? Procedure(s): MM tomosynthesis screening BI ?? Accession Number(s): [id number] ? cc: Aileen Howard DO ? EXAMINATION: ?? MM SCREENING DIGITAL BREAST TOMOSYNTHESIS, BILATERAL ? CLINICAL INFORMATION: ? Screening. Asymptomatic. ??Right breast pain. Patient states she was ?? being followed in [place] for the right breast but cannot obtain [...] DD/ 0845 ? TD/TT: 01/13/25 0917 ? Material Attendant: ? Procedure Note Federicoter, Image - 01/13/2025 Driss [facility] [address] [place] [address] Mammography Report Signed Patient: Margaux Menendez#: [id number] : 1980Acct:[id number] Age/Sex: 44 / FADM Date: 01/13/25 Loc: HO.MAMMO Attending Dr: Aileen Howard DO Ordering Physician: Aileen Howardults: 0I ncomplete: Needs Additional Imaging Evaluation Date of Service: 01/13/25Follow Up: Additional Imagi ng Procedure(s): MM tomosynthesis screening BI Accession Number(s): [id number] cc: Aileen Howard DO EXAMINATION: MM SCREENING DIGITAL BREAST TOMOSYNTHESIS, BILATERAL CLINICAL INFORMATION: Screening. Asymptomatic. Right breast pain. Patient states she was being followed in [place] for the right breast but cannot obtain [...] 01/13/25 1129 DD/ 0845 TD/TT: 01/13/25 0917 Material Attendant: us Aileen Howard DO IMG BI PROCEDURES Final Resu lt * MR Cervical Spine w/o Contrast (01/12/2025 7:30 PM EDT) Anatomical Region Laterality Modality Spine, C-spine Magnetic Resonan ce 01/12/2025 7:30 PM EDT Narrative 01/13/2025 8:56 AM EDT ? [facility] ?[address] ?[place] [address] ? Magnetic Resonance Report ? Signed ? Patient: Menendez,Haideliz ?MR#: [id number] ?? [id number] ? : 1980 ?Acct:[id number] ? Age/Sex: 44 / F ?ADM Date: 01/12/25 ? Loc: HO.MRI ? Attending Dr: Aileen Howard DO ? Ordering Physician: Aileen Howard DO ?? Date of Service: 01/12/25 ?? Procedure(s): MR cervical spine wo con ?? Accession Number(s): [id number] ? cc: Aileen Howard DO ? EXAMINATION: [...] in OV> ? 01/13/25 0853 ? DD/ 193 ? TD/TT: 01/12/252000 ? Material Attendant: ? Procedure Note Donotuseinterpreter, Image - 01/13/2025 [place] [address] Magnetic Resonance Report Signed Patient: Margaux MenendezMR#: [id number] : 1980Acct:[id number] Age/Sex: 44 / FADM Date: 01/12/25 Loc: HO.MRI Attending Dr: Aileen Howard DO Ordering Physician: Aileen Howard DO Date of Service: 01/12/25 Procedure(s): MR cervical spine wo con Accession Number(s): [id number] cc: Aileen Howard DO EXAMINATION: MR CERVICAL [...] Octaviano Blancas MDin OV> 01/13/25 0853 DD/ 29 TD/TT: 01/12/252000 Material Attendant: us Aileen Howard DO IMG MRI PROCEDURES Final Res ult * MR Brain w/o Contrast (01/12/2025 7:14 PM EDT) Anatomical Region Laterality Modality Brain Magnetic Resonan ce 01/12/2025 7:14 PM EDT Narrative 01/13/2025 8:51 AM EDT ? [facility] ?[address] ?[place] [address] ? Magnetic Resonance Report ? Signed ? Patient: Menendez,Haideliz ?MR#: [id number] ?? [id number] ? : 1980 ?Acct:[id number] ? Age/Sex: 44 / F ?ADM Date: 01/12/25 ? Loc: HO.MRI ? Attending Dr: Aileen Howard DO ? Ordering Physician: Aileen Howard DO ?? Date of Service: 01/12/25 ?? Procedure(s): MR head/brain wo con ?? Accession Number(s): [id number] ? cc: Aileen Howard DO ? EXAMINATION: [...] 01/13/25 0848 ? DD/ 13 ? TD/TT: 01/12/251943 ? Material Attendant: ? Procedure Note Donotuseinterpreter, Image - 01/13/2025 [place] [address] Magnetic Resonance Report Signed Patient: Margaux Menendez#: [id number] : 1980Acct:[id number] Age/Sex: 44 / FADM Date: 01/12/25 Loc: HO.MRI Attending Dr: Aileen Howard DO Ordering Physician: Aileen Howard DO Date of Service: 01/12/25 Procedure(s): MR head/brain wo con Accession Number(s): [id number] cc: Aileen Howard DO EXAMINATION: MR BRAIN [...] OV> 01/13/25 0848 DD/ 13 TD/TT: 01/12/251943 Material Attendant: us Aileen Howard DO IMG MRI PROCEDURES Final Res ult * Vitamin D, 25-Hydroxy, Total, Immunoassay (01/08/2025 8:10 AM EDT) Vitamin D 25-OH Total 41.9 >30 ng/mL [facility] Comment: Health Based Reference Values*< 20 ??ng/mL ??Xxaindqfr71-37 ng/mL ??Insufficient> 30 ??ng/mL ??Sufficient*Britni FLORES. N [...] AM EDT 01/08/2025 11:15 AM EDT Aileen Haquepatt LAB BLOOD ORDERABLES Final R esult Performing Organization Address [facility]/ZIP Co de Phone Number [facility] [address] [place] [phone] * Vitamin B12 (Cobalamin) and Folate Panel, Serum (01/08/2025 8:10 AM EDT) Vitamin B12 678 200 - 900 pg/mL [facility] Comment:NORMAL 200-900 PG/ML INDETERMINATE 160-199 PG/ML DEFICIENT < 160 PG/ML Folate 14.3 > or = 4.0 ng/mL [facility] Comment:Reference Values:> o r = 4.0 ng/mL< 4.0 ng/mL suggests folate deficiency Methotrexate, aminopterin and folinic acid(leucovorin) are chemotherapeutic agents whose molecularstructures are similar to folate; therefore, the Architectfolate assay cannot be used for patients using these drugs. Blood 01/08/2025 8:10 AM EDT 01/08/2025 11:15 AM EDT Aileen Howard DO LAB BLOOD ORDERABLES Final R esult Performing Organization Address [facility] Co de Phone Number [facility] [address] [place] [phone] * Albumin, Random Urine W/Creatinine (01/08/2025 8:10 AM EDT) Creatinine, Urine 140.84 mg/dL [facility] Microalbumin Urine 13.0 mg/L [facility] Microalbum Creatinine Ratio Ur 9.2 <30 ug/mg cr [facility] Comment:Albumin/Creatinine R atio Reference Ranges: Normal: < 30 ug/mg creatinine Microalbuminuria: 30 - 300 ug/mg creatinineClinical Albuminuria: > 300 ug/mg creatinine Urine (Urine, Random) 01/08/2025 8:10 AM EDT 01/08/2025 11:14 AM EDT us Aileen Howard DO LAB URINE ORDERABLES Final R esult [facility] [address] [place] [phone] * (ABNORMAL) CBC auto differential (01/08/2025 8:10 AM EDT) White Blood Count 10.4 4.8 - 10.8 X10*3/uL [facility] Red Blood Count 5.14 4.20 - 5.50 X10*6/uL [facility] Hemoglobin 12.3 12.0 - 16.0 g/dl [facility] Hematocrit 41.0 37.0 - 47.0 % [facility] Mean Corpuscular Volume 79.8(L) 80.0 - 98.0 fL [facility] Mean Corpuscular Hemoglobin 23.9(L) 27.0 - 33.0 pg [facility] Mean Corpuscular HGB Conc 30.0(L) 31.0 - 35.0 g/dl [facility] Red Cell Distribution Width 14.7 11.0 - 16.0 % [facility] Platelet Count 431(H) 160 - 400 X10*3/uL [facility] Mean Platelet Volume 10.6 9.4 - 12.3 fL [facility] Neutrophils Percent Auto 75.6(H) 45 - 73 % [facility] Imm Gran Pct Auto 0.4 0.0 - 0.4 % [facility] Lymphocytes Percent Auto 16.2(L) 20 - 40 % [facility] Monocytes Percent Auto 6.0 2 - 11 % [facility] Eosinophils Percent Auto 1.4 0 - 4 % [facility] Basophils Percent Auto 0.4 0 - 2 % [facility] NRBC Pct Auto 0.0 0.0 - 0.2 /100WBC [facility] Neutrophils Absolute Auto 7.9 2.0 - 8.3 x10*3/uL [facility] Imm Gran Abs Auto 0.04(H) 0.00 - 0.03 X10*3/uL [facility] Lymphocytes Absolute Auto 1.7 1.2 - 4.9 X10*3/uL [facility] Monocytes Absolute Auto 0.6 0.1 - 1.2 X10*3/uL [facility] Eosinophils Absolute Auto 0.2 0.0 - 0.4 X10*3/uL [facility] Basophils Absolute Auto 0.0 0.0 - 0.2 X10*3/uL [facility] NRBC Abs Auto 0.000 0.0 - 0.012 X10*3/uL [facility] Blood Venous blood specimen / Unknown 01/08/2025 8:10 AM EDT 01/08/2025 11:15 AM EDT Aileen Howard DO LAB BLOOD ORDERABLES Final R [facility] Performing Organization Address [facility]/ZIP Co de Phone Number [facility] [address] [place] [address] [phone] * Hepatitis C Antibody with Reflex to HCV, RNA, Quantitative, Real-Time PCR (01/08/2025 8:10 AM EDT) [facility] Hepatitis C Antibody Nonreactive Nonreactive [facility] Comment:Antibodies to HCV no t detected; does not exclude early acuteHCV infection. Blood Venous blood specimen / Unknown 01/08/2025 8:10 AM EDT 01/08/2025 11:15 AM EDT Aileen Lee ANNA LAB BLOOD ORDERABLES Final R ult Performing Organization Address [facility] Co de Phone Number [facility] [address] [place] [address] [phone] * (ABNORMAL) Iron And Total Iron Binding Capacity (01/08/2025 8:10 AM EDT) Pathologist [facility] Iron 45 30 - 160 mcg/dL [facility] Total Iron Binding Capacity 340 228 - 428 mcg/dL [facility] Percent Iron Saturation 13(L) 15 - 50 % [facility] Unsaturated Iron Binding 295 ug/dL [facility] Blood Venous blood specimen / Unknown 01/08/2025 8:10 AM EDT 01/08/2025 11:15 AM EDT [facility] BLO[facility]ABLES Final R esult Performing Organization Address City/[facility]/ZIP Co de Phone Number [facility] [address] [place] [address] [phone] * Hepatitis A Antibody, Total (01/08/2025 8:10 AM EDT) [facility] Hepatitis A Antibody IgG Nonreactive Nonreactive [facility] Blood Venous blood specimen / Unknown 01/08/2025 8:10 AM EDT 01/08/2025 11:15 AM EDT [facility] BLOOD ORDERABLES Final R esult Performing Organization Address [facility] de Phone Number [facility] [address] [place] [address] [phone] * Chlamydia/N. Gonorrhoeae RNA, TMA, Urogenitial (01/08/2025 8:10 AM EDT) [facility] CT PCR NOT DETECTED Not Detect. [facility] Comment:A not detected test result does [...] NG PCR NOT DETECTED Not Detect. [facility] Comment:A not detected test result does [...] EDT 01/08/2025 11:14 AM EDT Narrative [facility] - 01/08/2025 2:27 PM EDT Urine Aileen Howard DO LAB MICROBIOLOGY - GENERAL O RDERABLES Final Result Performing Organization Address [facility] Co de Phone Number [facility] [address] [place] [address] [phone] * Hepatitis B surface antigen, EIA (01/08/2025 8:10 AM EDT) Hepatitis B Surface Ag Negative Negative [facility] Blood Venous blood specimen / Unknown 01/08/2025 8:10 AM EDT 01/08/2025 11:15 AM EDT Aileen Howard DO LAB BLOOD ORDERABLES Final R esult Performing Organization Address [facility] Co de Phone Number [facility] [address] [place] [address] [phone] * Hepatitis B Core Antibody, Total (01/08/2025 8:10 AM EDT) Hepatitis B Core Antibody Nonreactive Nonreactive [facility] Blood Venous blood specimen / Unknown 01/08/2025 8:10 AM EDT 01/08/2025 11:15 AM EDT Aileen Lee DO LAB BLOOD ORDERABLES Final R esult Performing Organization Address [facility] Co de Phone Number [facility] [address] [place] [address] [phone] * RPR (Monitor) with Reflex to??Titer (01/08/2025 8:10 AM EDT) Pathologist [facility] RPR (Monitor) w/Refl Titer NON-REACTI VE NON-REACT BOOGIE [facility] Comment:THIS TEST WAS PERFOR MED AT:[facility] [place] [id number] MOSER MD Rapid Plasma Reagin Ab Titer TNP [facility] Blood Venous blood specimen / Unknown 01/08/2025 8:10 AM EDT 01/08/2025 11:15 AM EDT Aileen Howard DO LAB BLOOD ORDERABLES Final R [facility] Performing Organization Address [facility] Co de Phone Number [facility] [address] [place] [address] [phone] * HIV-1/2 Antigen and Antibodies, Fourth Generation, with Reflexes (01/08/2025 8:10 AM EDT) HIV AB/AG Nonreactive Nonreactive [facility] Comment:HIV-1 p24 Ag and/or HIV-1/HIV-2 Ab not detected.A test result that is nonreactive does not exclude thepossibility of exposure to or infection with HIV-1 and/orHIV-2. Nonreactive results in this assay for individualswith prior exposure to HIV-1 and/or HIV-2 may be due toantigen and antibody levels that are below the limit ofdetection of this assay.The [employer] HIV Ag/Ab Combo assay result andsupplemental assay results should be interpreted inconjunction with the patient's clinical presentation,history and other laboratory results. If the results areinconsistent with clinical evidence, additional testing issuggested to confirm the result. Blood Venous blood specimen / Unknown 01/08/2025 8:10 AM EDT 01/08/2025 11:15 AM EDT Aileen Howard DO LAB BLOOD ORDERABLES Final R esult Performing Organization Address [facility] Co de Phone Number [facility] [address] [place] [address] [phone] * Hepatitis B Surface Antibody, Qualitative (01/08/2025 8:10 AM EDT) ~Hepatitis B Surface Antibody NONREACTIVE Nonreactive [facility] Comment:Nonreactive: < 8.00 mIU/mL Blood Venous blood specimen / Unknown 01/08/2025 8:10 AM EDT 01/08/2025 11:15 AM EDT Aileen Howard DO LAB BLOOD ORDERABLES Final R esult Performing Organization Address [facility] de Phone Number [facility] [address] [place] [address] [phone] * TSH (01/08/2025 8:10 AM EDT) Thyroid Stimulating Hormone 2.39 0.32 - 4.0 uIU/mL [facility] Comment:TSH 3rd Generation ( [facility]) Blood Venous blood specimen / Unknown 01/08/2025 8:10 AM EDT 01/08/2025 11:15 AM EDT Aileen Howard DO LAB BLOOD ORDERABLES Final R esult Performing Organization Address [facility]/State/ZIP Co de Phone Number [facility] [address] [place] [address] [phone] * T4, Free (01/08/2025 8:10 AM EDT) Free T4 (Free Thyroxine) 0.91 0.71 - 1.85 ng/dL [facility] Blood Venous blood specimen / Unknown 01/08/2025 8:10 AM EDT 01/08/2025 11:15 AM EDT Aileen Howard DO LAB BLOOD ORDERABLES Final R esult Performing Organization Address [facility] Co de Phone Number [facility] [address] [place] [address] [phone] * Hemoglobin A1c (01/08/2025 8:10 AM EDT) Hemoglobin A1c 6.0 <6.0 % [facility] Comment:Hemoglobin A1C Refer ence Range Adults: 4.8 - 6.0 % Non diabetic: < 6.0 % Goal: < 7.0 %Additional Action Suggested: > 8.0 %Note: Hemoglobin A1c results are invalid for patients with abnormal amounts of HbF. Blood transfusions may impact the HbA1c concentration in the patient sample. Estimated Average Glucose 126 mg/dL [facility] Comment:eAG = Estimated ave rage glucose which is %A1C expressed asaverage glucose, using the formula of the [id number]-MwpzwlvQxprkno Glucose study (ADAG), Diabetes Care, Vol.31,#8,2007 Blood Venous blood specimen / Unknown 01/08/2025 8:10 AM EDT 01/08/2025 11:15 AM EDT Aileen Howard DO LAB BLOOD ORDERABLES Final R esult Performing Organization Address [facility]/ZIP Co de Phone Number [facility] [address] [place] [address] [phone] * Ferritin (01/08/2025 8:10 AM EDT) Pathologist [facility] Ferritin 25 10 - 250 ng/mL [facility] Blood Venous blood specimen / Unknown 01/08/2025 8:10 AM EDT 01/08/2025 11:15 AM EDT Aileen Howard LAB BLOOD ORDERABLES Final R esult Performing Organization Address City/[facility] Co de Phone Number [facility] [address] [place] [phone] * Hepatic Function Panel (01/08/2025 8:10 AM EDT) [facility] Bilirubin, Total 0.9 0.0 - 1.0 mg/dL [facility] Bilirubin, Direct 0.3 0.0 - 0.5 mg/dL [facility] Aspartate Amino Transferase 18 5 - 31 U/L [facility] Alanine Aminotransferase 20 0 - 31 U/L [facility] Total Protein 7.9 6.5 - 8.0 g/dL [facility] [facility] Albumin Level 4.2 3.5 - 5.0 g/dL [facility] Alkaline Phosphatase 91 39 - 117 U/L [facility] Blood Venous blood specimen / Unknown 01/08/2025 8:10 AM EDT 01/08/2025 11:15 AM EDT Aileen Howard LAB BLOOD ORDERABLES Final R esult Performing Organization Address City/[facility]/ZIP Co de Phone Number [facility] [address] [place] [phone] * (ABNORMAL) Lipid Panel, Standard (01/08/2025 8:10 AM EDT) Pathologist [facility] Triglycerides 77 <150 mg/dL [facility] Comment:Desirable Triglyceri de: less than 150 mg/dLBorderline High Triglyceride 150-199 mg/dLHigh Triglyceride: 200-499 mg/dLVery High Triglyceride: greater than or equal to 5OO mg/dL Cholesterol 200(H) <200 mg/dL [facility] Comment:Desirable Cholestero l: less than 200 mg/dLBorderline High Cholesterol: 200-239 mg/dLHigh Cholesterol: greater than 239 mg/dL LDL Cholesterol Calculated 125(H) <100 mg/dL [facility] Comment:Desirable LDL: less than 100 mg/dLNear Optimal/Above Optimal LDL: 110- 129 mg/dLBorderline High LDL: 130-159 mg/dLHigh LDL: 160-189 mg/dLVery High LDL: greater than or equal to 190 mg/dL HDL Cholesterol 60 >40 mg/dL [facility] Comment:Desirable HDL: great er than 40 mg/dL Note: This HDL assay may give artificially low results in patients with liver disease. Blood Venous blood specimen / Unknown 01/08/2025 8:10 AM EDT 01/08/2025 11:15 AM EDT us Aileen Howard DO LAB BLOOD ORDERABLES Final R esult [facility] [address] [place] [phone] * (ABNORMAL) Basic Metabolic Panel (01/08/2025 8:10 AM EDT) Sodium 140 135 - 145 mmol/L [facility] Potassium 4.2 3.3 - 5.1 mmol/L [facility] Chloride 104 96 - 108 mmol/L [facility] Carbon Dioxide 28 22 - 29 mmol/L [facility] Anion Gap 12 12 - 20 [facility] Urea Nitrogen (BUN) 19(H) 9 - 16 mg/dL [facility] Creatinine, Serum 0.63 0.5 - 1.4 mg/dL [facility] Estimated Glomerular Filt Rate >60 [facility] Comment:Chronic Kidney Disea se: Estimated GFR < 60 mL/min/[id number] Kidney Disease: Estimated GFR < 15 mL/min/1.73m2 Glucose 130(H) 60 - 115 mg/dL [facility] Calcium 9.3 8.4 - 10.2 mg/dL [facility] Blood Venous blood specimen / Unknown 01/08/2025 8:10 AM EDT 01/08/2025 11:15 AM EDT us Aileen Howard DO LAB BLOOD ORDERABLES Final R esult [facility] [address] [place] [phone] * XR CERVICAL SPINE 3V (01/07/2025 9:54 AM EDT) Anatomical Region Laterality Modality Abdomen Radiographic Lynette ging 01/07/2025 9:54 AM EDT Narrative 01/07/2025 10:41 AM EDT ?[facility] ?[address] ?[place] [address] ?XRay Report ? Signed ? Patient: Menendez,Haideliz ?MR#: [id number] ?? [id number] ? : 1980 ?Acct:[id number] ? Age/Sex: 44 / F ?ADM Date: 01/07/25 ? Loc: HO.HHCX ? Attending Dr: Aileen Howard DO ? Ordering Physician: Aileen Howard DO ?? Date of Service: 01/07/25 ?? Procedure(s): XR cervical spine 3V ?? Accession Number(s): [id number] ? cc: Aileen Howard DO ? EXAMINATION: [...] DD/ 0954 ? TD/TT: 01/07/25 1000 ? Material Attendant: ? Procedure Note Donpitoter, Image - 01/07/[address] [address] XRay Report Signed Patient: Margaux MenendezMR#: [id number] : 1980Acct:[id number] Age/Sex: 44 / FADM Date: 01/07/25 Loc: HO.HHCX Attending Dr: Aileen Howard DO Ordering Physician: Aileen Howard DO Date of Service: 01/07/25 Procedure(s): XR cervical spine 3V Accession Number(s): [id number] cc: Aileen Howard DO EXAMINATION: XR CERVICAL [...] 01/07/25 1039 DD/ 0954 TD/TT: 01/07/25 1000 Material Attendant: Aileen Howard DO IMG XR PROCEDURES Edited Res ult - Final from Last 3 Months Insurance [facility] C3 Care Teams Machine Trimmer Relationship Specialty Start Date End Date Aileen Howard DO [address] [place] [address] PCP - General Family Medicine 01/18/25
--- OUTSIDE RECORDS SUMMARY | 2025-02-08 15:46 | XMS_ITS | Encounter Summary ---
Author Organization [employer] Address [address] [place] [address] Care Team Providers Care Paralegal Supervisor Name Role Phone Aileen Howard DO Primary Care Provider [phone] Reason for Visit * Reason Onset Date Comments Error (VOID this visit) 02/03/2025 Encounter Details Date Type Department Care Team ([facility] st Contact Info) Description 02/03/2025 Telephone [facility] MED[facility]INE [address] [place] [address] Aileen Howard DO [address] [place] [address] Error (VOID this visit) Social History Tobacco Use Types Packs/Day Years [...] documented as of this encounter Care Teams Paralegal Supervisor Relationship Specialty Start Date End Date Aileen Howard DO [address] [place] [phone] PCP - General Family Medicine 01/18/25 documented as of this encounter
--- OUTSIDE RECORDS SUMMARY | 2025-02-08 15:46 | XMS_ITS | Encounter Summary ---
Author Organization [employer] Address [address] [place] [address] Care Team Providers Care Internal Audit Consultant Name Role Phone Aileen Howard DO Primary Care Provider [phone] Encounter Details Date Type Department Care Team (Late st Contact Info) Description 02/08/2025 12:00 PM EDT Office Visit [facility] MED[facility]INE [address] [place] [address] Aileen Howard DO [address] [place] [address] Chronic pain of right upper extremity (Primary Dx); Paresthesia of right arm and leg; Paresthesia of tongue; Prediabetes; Anxiety; Daily headache; Abnormal brain MRI; Rash; Swelling of upper lip; Breast cyst, right Social History Tobacco Use Types Packs/Day Years [...] with others, in a hotel, in a senior care, living outside on the street, on a [...] Mass Index 30.73 02/08/2025 12:32 PM EDT documented in this encounter Progress Notes * Aileen Howard, - 02/08/2025 12:00 PM EDT SUBJECTIVE: Margaux Menendez is a 45 y.o. year old female who presents for sick visit . She comes in today to discuss recent results. HPI She is getting very frustrated with appts and her sx are just getting worse. She says that her neurology referral was faxed to the wrong place/number and wasn't done. She says that she called [facility] and they told her that something was missing from the referral and she couldn't schedule the appt. Her nerve tests were cancelled because the doctor wasn't going to be there and she was never contacted to scheduled new ones. She says that the R side of her body is still numb. She says that the numbness episodes last ~ 15-20 mins and the following day she gets pain in the same area. She feels likes she's getting a rash on her face and now spreading. She says that it's itchy and red. She tried vaseline and another OTC cream with no improvement. She has a REBOLLAR that won't go away for the last 2 days. She feels a weird sensation and constant poking pain in the back of her head on the R side. She has noticed any significant improvement with the increased dose of gabapentin. She feels her lip weird. She feels like it's getting bigger especially on the underside of her lip.Sometimes she feels her tongue getting thicker. She's been checking her sugars intermittently. She says that her sugars are all over the place. Shehas fastings from 109 to 200s. She says that her sugars go up when she gets the numbness episodes and the episodes are coming moreoften. She has a strong family h/o DM (mom, dad, sister) and was more active in [place]. She is trying to eat better and walk every day. She saw the plastics fabrication supervisor and says that she only spent a couple of mins with her. She took her [facility] and is waiting for [facility] to call her on the . She says that DTA has helped a lot. She saw a 1st floor apt in [place] and has a woman helping her. She wants to know about her mammo US. Review of Systems Constitutional: Negative for chills and fever. HENT: Negative for congestion, sore throat, trouble swallowing and voice change. Eyes: Negative for visual disturbance. Respiratory: Negative for cough, shortness of breath and wheezing. Cardiovascular: Negative for chest pain and leg swelling. Gastrointestinal: Negative for abdominal pain, diarrhea and vomiting. Musculoskeletal: Positive for arthralgias. Negative for gait problem. Skin: Positive for rash. Neurological: Positive for numbness and headaches. Negative for dizziness. Patient Active Problem List Diagnosis Essential hypertension Peripheral vascular disease (CMS/HCC) Prediabetes Anxiety Chronic pain of right upper extremity No Known Allergies OBJECTIVE Vitals: 02/08/25 1232 BP: 110/60 BP Location: Left arm Patient Position: Sitting BP Cuff Size: Adult Pulse: 85 Resp: 20 Temp: 97.1 ??F (36.2 ??C) TempSrc: Oral SpO2: 98% Weight: 168 lb (76.2 kg) Height: 5' 2 (1.575 m) Physical Exam Constitutional: General: She is not in acute distress. Appearance: Normal appearance. HENT: Nose: Nose normal. Mouth/Throat: Mouth: No oral lesions. Dentition: No gingival swelling. Pharynx: Uvula midline. No pharyngeal swelling or uvula swelling. Comments: ? Slight swelling upper lip Cardiovascular: Rate and Rhythm: Normal rate and regular rhythm. Heart sounds: Normal heart sounds. No murmur heard. Pulmonary: Effort: Pulmonary effort is normal. Breath sounds: Normal breath sounds. No wheezing or rhonchi. Neurological: General: No focal deficit present. Mental Status: She is alert and oriented to person, place, and time. Cranial Nerves: No cranial nerve deficit. Motor: No weakness. Gait: Gait normal. Psychiatric: Attention and Perception: Attention normal. Mood and Affect: Mood is anxious. Speech: Speech normal. Behavior: Behavior normal. Thought Content: Thought content normal. ASSESSMENT/PLAN Diagnoses and all orders for this visit: Chronic pain of right upper extremity Persistent pain with paresthesias, ?neuropathy vs radiculopathy -C-spine xrays unremarkable Dec 2024 -MRI C-spine normal Dec 2024 -keep EMG/NCS next mos as scheduled, she will contact [facility] [place] app[place] -cont gabapentin 300 mg TID -trial amitriptyline nightly -encouraged baclofen nightly -cont nabumetone prn -consider eval with PT/ortho pending EMG/NCS results Paresthesia of right arm and leg Paresthesia of tongue Intermittent episodes of R-sided numbness with occasional tongue paresthesias -MRI brain with no acute abnormality Dec 2024 -keep EMG/NCS next mos as scheduled -basic labs nml Dec 2024 -cont meds as above -awaiting eval with [facility] neurology Prediabetes With increasing BS -A1c 6.Dec, repeat today -cont intermittent BS monitoring - Hemoglobin A1c; Future Anxiety With probable depression and insomnia -she denies any SI/HI -she has the number to crisis -cont hydroxyzine to 50mg prn acute anxiety sx -cont ambien nightly as needed -awaiting eval with new therapist, Patel Daily headache With recent worsening -trial tramadol today to break current headache -start amitriptyline nightly -cont gabapentin as above -encouraged tylenol -advised rtc or go to ED if sx change or worsen - traMADol (Ultram) 50 MG tablet; Take 1 tablet (50 mg) by mouth every 6 (six) hours if needed for severe pain for up to 1 day. Abnormal brain MRI -MRI brain with prominent lacrimal glands, could be seen with sarcoidosis Dec 2024 -MRI C-spine with nonspecific prominent cervical lymph nodes Dec 2024 -ESR, BRENDNA, RF and Lyme negative Jan 2025 -CRP minimally elevated Jan 2025, reviewed results with patient -MARVIN level nml Jan 2025 -T-spot negative Jan 2025 -re-referred for CXR -consider eval with rheum/pulm pending results Rash Probable seborrheic dermatitis -provided reassurance -trial clotrimazole cream BID -trial ketoconazole shampoo -advised rtc if no improvement Swelling of upper lip Subjective sx with ? Mild swelling -start zyrtec daily -advised benadryl prn -advised carry epi-pen to use as needed -advised go to ED if increased lip swelling or any oral swelling or SOB, she agrees with plans Breast cyst, right -mammo [facility] Dec -breast US with 4mm minimally complicated cyst, [facility] 27 Jan 2025, reviewed results with pt -advised pt will refer to [facility] if develops any pain, she agrees with plans F/U with me in 2 mos or sooner prn Current Outpatient Medications: acetaminophen (Tylenol 8 Hour) 650 MG ER tablet, Take 1 tablet (650 mg) by mouth every 8 (eight) hours if needed for mild pain or headaches. Do not crush, chew, or split., Disp: 40 tablet, Rfl: 1 Alcohol Swabs 70 % pads, Use to test blood sugar one time daily, Disp: 100 each, Rfl: 3 amitriptyline (Elavil) 10 MG tablet, Take 1 tablet (10 mg) by mouth at bedtime., Disp: 30 tablet, Rfl: 3 aspirin 81 MG chewable tablet, [...] Rfl: 3 Blood Glucose Monitoring Suppl (FreeStyle [place] Lite) w/Device kit, Use to test blood sugar one time daily, Disp: 1 kit, Rfl: 0 cetirizine (ZyrTEC) 10 MG tablet, Take 1 tablet (10 mg) by mouth Once per day., Disp: 30 tablet, Rfl: 11 cilostazol (Pletal) 50 MG tablet, Take 1 tablet (50 mg) by mouth 2 times daily., Disp: 60 tablet, Rfl: 3 clotrimazole (Lotrimin) 1 % cream, Apply topically if needed in the morning and at bedtime (rash) for up to 28 days., Disp: 60 g, Rfl: 2 diphenhydrAMINE (BENADryl) 25 MG tablet, Take 2 tablets (50 mg) by mouth every 6 (six) hours if needed for itching or allergies., Disp: 30 tablet, Rfl: 1 EPINEPHrine (Epipen) 0.3 MG/0.3ML injection syringe, Inject 0.3 mL (0.3 mg) as directed 1 (one) time for 1 dose. use as directed for allergic reaction and then call 911, Disp: 2 each, Rfl: 1 FREESTYLE LITE test strip, Use to test blood sugar one time daily, Disp: 100 each, Rfl: 3 gabapentin (Neurontin) 300 MG capsule, Take 1 capsule (300 mg) by mouth 3 times daily., Disp: 90 capsule, Rfl: 11 hydrOXYzine pamoate (Vistaril) 50 MG capsule, Take 1 capsule (50 mg) by mouth every 6 (six) hours if needed for anxiety., Disp: 40 capsule, Rfl: 1 ketoconazole (NIZOral) 2 % shampoo, Apply topically 2 (two) times a week., Disp: 240 mL, Rfl: 3 Lancets misc, Use to test blood sugar [...] or split., Disp: 30 tablet, Rfl: 3 traMADol (Ultram) 50 MG tablet, Take 1 tablet (50 mg) by mouth every 6 (six) hours if needed for severe pain for up to 1 day., Disp: 4 tablet, Rfl: 0 zolpidem (Ambien) 10 MG tablet, Take 1 tablet (10 mg) by mouth if needed at bedtime for sleep., Disp: 30 tablet, Rfl: 0 documented in this encounter Plan of Treatment Scheduled Orders Name Type Priority Associated Diagnoses Orde r Schedule Hemoglobin A1c Lab Routine Prediabetes Expected: 02/08/2025 (Approximate), Expires: 02/08/2026 documented as of this encounter Visit Diagnoses Diagnosis Chronic pain of right upper extremity- Primary Paresthesia of right arm and leg Paresthesia of tongue Prediabetes Other abnormal glucose Anxiety Anxiety state, unspecified Daily headache Abnormal brain MRI Nonspecific (abnormal) findings on radiological and other examination of skull and head Rash Rash and other nonspecific skin eruption Swelling of upper lip Breast cyst, right documented in this encounter Additional Health Concerns Assessment Noted Time PHQ-9 Depression Total Score: 8 01/28/20 25 12:38 PM EDT documented as of this encounter Care Teams Internal Audit Consultant Relationship Specialty Start Date End Date Aileen Howard DO [address] [place] [phone] PCP - General Family Medicine 01/18/25 documented as of this encounter
--- OUTSIDE RECORDS SUMMARY | 2025-02-08 15:46 | XMS_ITS | Encounter Summary ---
Author Organization [employer] Address [address] [place] [address] Care Team Providers Care Nursing Care Partner Name Role Phone Aileen Howard DO Primary Care Provider [phone] Reason for Visit * Reason Onset Date Comments Referral 02/05/2025 Encounter Details Date Type Department Care Team ([facility] st Contact Info) Description 02/05/2025 Telephone [facility] MEDICINE [address] [place] [address] Aileen Howard DO [address] [place], [place] [phone] Referral Social History Tobacco Use Types Packs/Day [...] with others, in a hotel, in a care home, living outside on the street, on a [...] Telephone Encounter - Carlos Castorena - 02/05/2025 1:48 PM EDT Tc from pt stating that she spoke with [facility] which is where she was referred too and they told her that the referral never came with notes that stated why she needed the appt. She needs the notes to be added for them to accept her referral. Contact pt at [phone] documented in this encounter Plan of Treatment Not on file documented as of this encounter Visit Diagnoses Not on filedocumented in this encounter Additional Health Concerns Assessment Noted Time PHQ-9 Depression Total Score: 8 01/28/20 12:38 PM EDT documented as of this encounter Care Teams Nursing Care Partner Relationship Specialty Start Date End Date Aileen Howard DO [address] [place] [phone] PCP - General Family Medicine 01/18/25 documented as of this encounter
--- OUTSIDE RECORDS SUMMARY | 2025-02-08 15:46 | XMS_ITS | Encounter Summary ---
Author Organization [employer] Address [address] [place] [address] Care Team Providers Care Housekeeping Assistant Name Role Phone Aileen Howard DO Primary Care Provider [phone] Reason for Visit * Reason Onset Date Comments Results 02/02/2025 Encounter Details Date Type Department Care Team ([facility] st Contact Info) Description 02/02/2025 Telephone [facility]ICINE [address] [place] [address] Aileen Howard DO [address] [place], [place] [phone] Results Social History Tobacco Use Types Packs/Day Years [...] with others, in a hotel, in a chcf, living outside on the street, on a [...] encounter Miscellaneous Notes * Telephone Encounter - Francie Dennis RN - 02/03/2025 2:11 PM EDT RN reviewed BW results with PCP. BW results returned WNL except CRP which was elevated. PCP reportsthis may be r/t to arthritis and will be repeated at f/u appointment. TC placed to patient [phone] to inform of lab results. Patient is frustrated as she reports she explained to the provider that she feels numbness and inflammation in her entire body. Patient advised this test is unable to determine where the inflammation is just that there is some inflammation in her body. Patient informedat times the CRP can return elevated with arthritis flares which can be triggered by sudden weatherchanges (such as warm days to rainy colder days). Patient inquired how to say arthritis in turkish.RN informed patient this RN does not speak turkish however RN can obtain an dielectric machine operator if patient would like (patient denied dielectric machine operator and stated I will google it ). Patient inquired on next steps for POC, RN advised patient PCP will repeat CRP in future visit (patient informed she is on a recall for 03/2025). Patient increasingly frustrated and inquired on neurology referral. Patient reports I haven't heard anything about an appointment and I called [facility] and they stated they didn't receive anything. You sent it to the wrong office . RN advised patient, RN did not send referral as nurses do not process referrals however RN will check on referral status. RN informed patient per referral notes in the chart it appears referral was sent to [facility] neurology on 01/28/25. Patient informed TAO Singletary spoke to [facility] neurology (Abida) on 01/29/25 who confirmed they received the referral and would call the patient to schedule and appointment. RN inquired [facility] patient reports I'm not sure I'm the patient and stated have a good day and disconnected the call. RN returned call to patient as RN had not completed discussing results with patient. RN informed patient of breast US returned showing a minimally complicated cyst which is benign. Patient advised PCP can refer patient to [facility] if she would like it removed if it is bothersome otherwise she does not need to have it removed. Patient reports she would like an appointment with her doctor as she is not sure what to do because I'm the patient . RN scheduled patient for an appointment with PCP on 02/08/25 at noon. Patient agreed to appointment date and time. RN did discuss neurology referral again withpatient during call. Patient advised to call [facility] neurology and request to speak to Abida who is the employee [facility] RN spoke to. Patient advised if she still continues to have issues with neurology referral to notify provider at appointment on 02/08. Patient verbalized understanding. Patient to f/uPRN. * Telephone Encounter - Sravanthi Doss - 02/02/2025 3:00 PM EDT TC from pt requesting call back regarding Results. Type of results: C-reactive Protein Date when done: 01/29 Facility: [facility] documented in this encounter Plan of Treatment Not on file documented as of this encounter Visit Diagnoses Not on filedocumented in this encounter Additional Health Concerns Assessment Noted Time PHQ-9 Depression Total Score: 8 01/28/20 25 12:38 PM EDT documented as of this encounter Care Teams Housekeeping Assistant Relationship Specialty Start Date End Date Aileen Howard DO [address] [place] [phone] PCP - General Family Medicine 01/18/25 documented as of this encounter
[2025-02-08 16:20] LABS: Estimated Average Glucose 131 mg/dL; Hemoglobin A1C 140.2855 umol/L; Hemoglobin A1c % 6.2 % (<6.0); Total Hemoglobin (HGBA1C) 3195.3769 umol/L
== END 2025-02-08 13:40 | disposition home or self-care (01) ==
LOC: HO.HHCL 13:39
PROVIDERS: Visit Provider Family Medicine
DX: R73.03 Prediabetes (principal); R90.89 Other abnormal findings on diagnostic imaging of central nervous system
CPT/HCPCS: 36415; 71046; 83036

== ENCOUNTER → 2025-02-08 13:43 | Outpatient (BNV) | payer MEDICAID, SELFPAY | PROVIDERS: Visit Provider Radiology Diagnostic Radiology | DX: R90.89 Other abnormal findings on diagnostic imaging of central nervous system (principal) | CPT/HCPCS: 71046 ==

== ENCOUNTER 2025-02-10 11:03 | Outpatient (REF) | payer MEDICAID, SELFPAY ==
--- NOTE | 2025-02-10 11:10 | EMG_ITS ---
Chief complaint: Right hand/arm numbness, right leg numbness and pain Reason for referral: Evaluate for neuropathy Referred by: Dr. Howard Procedure done: Right upper extremity and lower extremity NCS/EMG Precautions and/or limitations: None The limb temperature was monitored continuously and remained between 32-36 degrees C during the performance of the NCS. Nerve Conduction Studies Anti Sensory Summary Table ?Stim Site NR Onset (ms) Norm Onset (ms) Peak (ms) Norm Peak (ms) O-P Amp (?V) Norm O-P Amp Site1 Site2 Delta-0 (ms) Dist (cm) Dell (m/s) Norm Dell (m/s) Right Median Anti Sensory (2nd Digit) Wrist ? 3.2 4.7 <3.6 18.7 >10 Wrist 2nd Digit 3.2 14.0 44 Left Sural Anti Sensory (Lat Mall) Calf ? 3.3 3.9 <4.0 9.4 >5.0 Calf Lat Mall 3.3 14.0 42 Right Sural Anti Sensory (Lat Mall) Calf ? 3.3 4.0 12.7 Right Ulnar Anti Sensory (5th Digit) Wrist ? 2.7 3.5 <3.7 16.7 >15.0 Wrist 5th Digit 2.7 14.0 52 Motor Summary Table ?Stim Site NR Onset (ms) Norm Onset (ms) O-P Amp (mV) Norm O-P Amp iAmp (mV) Amp (1st) (%) Site1 Site2 Delta-0 (ms) Dist (cm) Dell (m/s) Norm Dell (m/s) Right Median Motor (Abd Poll Brev) Wrist ? 4.1 <3.9 8.4 >4.5 10.2 100.0 Elbow Wrist 3.9 19.5 50 >45 Elbow ? 8.0 8.0 9.3 95.2 Right Peroneal Motor (Ext Dig Brev) Ankle ? 3.9 <4.0 6.4 >2.5 7.2 100.0 Ankle Ext Dig Brev 3.9 0.0 B Fib ? 11.2 4.6 5.3 71.9 B Fib Ankle 7.3 30.0 41 >40 Poplt ? 11.8 5.7 6.4 89.1 Poplt B Fib 0.6 5.0 83 >40 Right Tibial Motor (Abd Hua Brev) Ankle ? 4.5 <5 7.1 >2.5 9.0 100.0 Ankle Abd Hua Brev 4.5 0.0 Knee ? 11.6 12.5 16.9 176.1 Knee Ankle 7.1 35.0 49 >40 Right Ulnar Motor (Abd Dig Minimi) Wrist ? 3.0 <3.0 9.2 >5 10.8 100.0 B Elbow Wrist 3.2 17.0 53 >45 B Elbow ? 6.2 8.5 10.1 92.4 A Elbow B Elbow 1.6 10.0 63 >45 A Elbow ? 7.8 8.2 9.8 89.1 EMG ?Side Muscle Nerve Root Ins Act Fibs Psw Amp Dur Poly Recrt Int Pat Comment Right 1stDorInt Ulnar C8-T1 Nml Nml Nml Nml Nml 0 Nml Complete Right FlexCarRad Median C6-7 Nml Nml Nml Nml Nml 0 Nml Complete Right Biceps Musculocut C5-6 Nml Nml Nml Nml Nml 0 Nml Complete Right Triceps Radial C6-7-8 Nml Nml Nml Nml Nml 0 Nml Complete Right Deltoid Axillary C5-6 Nml Nml Nml Nml Nml 0 Nml Complete Right AbdHallucis MedPlantar S1-2 Nml Nml Nml Nml Nml 0 Nml Complete Right AntTibialis Dp Br Peron L4-5 Nml Nml Nml Nml Nml 0 Nml Complete Right PostTibialis Tibial L5, S1 Nml Nml Nml Nml Nml 0 Nml Complete Right MedGastroc Tibial S1-2 Nml Nml Nml Nml Nml 0 Nml Complete Right VastusMed Femoral L2-4 Nml Nml Nml Nml Nml 0 Nml Complete FINDINGS: Right median motor nerve showed prolonged distal latency, normal amplitude and normal conduction velocity. Right median sensory nerve showed prolonged peak latency. All other nerves tested were within normal. Concentric needle EMG was performed in selected muscles of the right upper and lower extremities. Study did not reveal signs of electric abnormalities as shown in the table above. IMPRESSION: 1. This is an abnormal study. 2. There is electrodiagnostic evidence for right moderate-severe median neuropathy at the wrist, consistent with carpal tunnel syndrome. 3. There is no electrodiagnostic evidence for ulnar neuropathy, brachial plexopathy, or cervical radiculopathy. 4. There is no electrodiagnostic evidence for peroneal neuropathy, tibial neuropathy. lumbosacral plexopathy, lumbar radiculopathy, peripheral neuropathy. Thank you for your kind referral. Polly Thomas MD, JULIANE Board Certified, [place] Board of [employer] Medicine and Rehabilitation (ABPMR) Board Certified, [place] Board of Electrodiagnostic Medicine (ABEM) CODIN [phone] MTDD
--- OUTSIDE RECORDS SUMMARY | 2025-02-10 13:17 | XMS_ITS | Encounter Summary ---
Author Organization [employer] Address [address] [place] [address] Care Team Providers Care Intranet Specialist Name Role Phone Aileen Howard DO Primary Care Provider [phone] Encounter Details Date Type Department Care Team (Late st Contact Info) Description 02/08/2025 12:00 PM EDT Office Visit [facility] [address] [place] [address] Aileen Howard DO [address] [place] [address] Chronic pain of right upper extremity (Primary [...] wasn't done. She says that she called [facility] and they told her that something was [...] dad, sister) and was more active in [place]. She is trying to eat better and walk every day. She saw the supervisor pipelines and says that she only spent a couple of mins with her. She took her [facility] and is waiting for [facility] to call her on the . She says that DTA has helped a lot. She saw a 1st floor apt in [place] and has a woman helping her. She [...] next mos as scheduled, she will contact [facility] for sooner appt -cont gabapentin 300 mg [...] prominent cervical lymph nodes Dec 2024 -ESR, BRENDAN, RF and Lyme negative Jan 2025 -CRP minimally elevated Jan 2025, reviewed results with patient -MARVNI level nml Jan 2025 -T-spot negative Jan [...] Rfl: 3 Blood Glucose Monitoring Suppl (FreeStyle [place] Lite) w/Device kit, Use to test blood [...] Procedure Name Priority Date/Time Associated Diagnosis Comments HEMOGLOBIN A1C Routine 02/08/2025 1:40 PM EDT Prediabetes documented in this encounter Results * (ABNORMAL) Hemoglobin A1c (02/08/2025 1:40 PM EDT) Hemoglobin A1c 6.2(H) <6.0 % [facility] Comment:Hemoglobin A1C Refer ence Range Adults: 4.8 - 6.0 % Non diabetic: < 6.0 % Goal: < 7.0 %Additional Action Suggested: > 8.0 %Note: Hemoglobin A1c results are invalid for patients with abnormal amounts of HbF. Blood transfusions may impact the HbA1c concentration in the patient sample. Estimated Average Glucose 131 mg/dL [facility] Comment:eAG = Estimated ave rage glucose which is %A1C expressed asaverage glucose, using the formula of the Q4K-PbzubhvEmjcwlf Glucose study (ADAG), Diabetes Care, Vol.31,#8,2007 Blood Venous blood specimen / Unknown 02/08/2025 1:40 PM EDT 02/08/2025 4:00 PM EDT us Aileen Howard DO LAB BLOOD ORDERABLES Final R esult [facility] [address] [place] [phone] documented in this encounter Visit Diagnoses Diagnosis Chronic pain [...] documented as of this encounter Care Teams Intranet Specialist Relationship Specialty Start Date End Date Aileen Howard DO [address] [place] [address] PCP - General Family Medicine 01/18/25 documented as of this encounter
--- OUTSIDE RECORDS SUMMARY | 2025-02-10 13:17 | XMS_ITS | Encounter Summary ---
Author Organization [employer] Address [address] [place] [address] Care Team Providers Care Gambling Broker Name Role Phone Aileen Howard DO Primary Care Provider [phone] Reason for Visit * Reason Onset Date Comments Med Refill 02/05/2025 Encounter Details Date Type Department Care Team ([facility] st Contact Info) Description 02/05/2025 Refill [facility] [address] [place] [address] Aileen Howard DO [address] [place] [address] Prediabetes Social History Tobacco Use Types Packs/Day [...] with others, in a hotel, in a retirement, living outside on the street, on a [...] tablet Lancets misc To be sent to: [facility] - [place], [place] - [address] [facility] [address] [facility] documented in this encounter Plan of Treatment Not on file documented as of this encounter Visit Diagnoses Diagnosis Prediabetes Other abnormal glucose documented in this encounter Additional Health Concerns Assessment Noted Time PHQ-9 Depression Total Score: 8 01/28/20 12:38 PM EDT documented as of this encounter Care Teams Gambling Broker Relationship Specialty Start Date End Date Aileen Howard DO [address] [facility] [place] [address] PCP - General Family Medicine 01/18/25 documented as of this encounter
--- OUTSIDE RECORDS SUMMARY | 2025-02-10 13:17 | XMS_ITS | Encounter Summary ---
Author Organization [employer] Address [address] [place] [address] Care Team Providers Care Forestry Scientist Name Role Phone ShabnamAileen beltre Primary Care [...] with others, in a hotel, in a nursing home, living outside on the street, on [...] documented as of this encounter Care Teams Forestry Scientist Relationship Specialty Start Date End Date Aileen Howard DO [address] [place] [address] PCP - General Family Medicine 01/18/25 documented as of this encounter
--- OUTSIDE RECORDS SUMMARY | 2025-02-10 13:17 | XMS_ITS | Encounter Summary ---
Author Organization [employer] Address [address] [place] [address] Care Team Providers Care Pulp Plant Supervisor Name Role Phone Aileen Howard DO Primary Care Provider [phone] Reason for Visit * Reason Onset Date Comments Referral 02/05/2025 Encounter Details Date Type Department Care Team ([facility] st Contact Info) Description 02/05/2025 Telephone [facility] [address] [place] [address] Aileen Howard DO [address] [place], [place] [phone] Referral Social History Tobacco Use Types Packs/Day [...] from pt stating that she spoke with [facility] which is where she was referred too and they told her that the referral never came with notes that stated why she needed the appt. She needs the notes to be added for them to accept her referral. Contact pt at [phone] documented in this encounter Plan of Treatment Not on file documented as of this encounter Visit Diagnoses Not on filedocumented in this encounter Additional Health Concerns Assessment Noted Time PHQ-9 Depression Total Score: 8 01/28/20 12:38 PM EDT documented as of this encounter Care Teams Pulp Plant Supervisor Relationship Specialty Start Date End Date Aileen Howard DO [address] [place] [phone] PCP - General Family Medicine 01/18/25 documented as of this encounter
--- OUTSIDE RECORDS SUMMARY | 2025-02-10 13:17 | XMS_ITS | Clinical Summary ---
Author Organization [employer] Address [address] [place] [address] Care Team Providers Care Rn Hemodialysis Name Role Phone ShabnamAileen beltre Primary Care Provider [phone] Allergies No known active allergies Medications * [...] mild pain. 60 tablet 1 01/08/20 25 Active aspirin 81 MG chewable tablet Chew 1 tablet (81 mg) Once per day. 30 tablet 3 01/08/20 026 Active atorvastatin (Lipitor) 40 MG tablet Take 1 tablet (40 mg) by mouth at bedtime. 30 tablet 3 01/08/20 25 026 Active Blood Glucose Monitoring Suppl (FreeStyle Metamora Lite) w/Device kitIndications :Prediabetes Use to test [...] 30 tablet 3 02/09/20 25 025 Active cetirizine (ZyrTEC) 10 [...] then call 911 2 each 1 02/09/20 Active gabapentin (Neurontin) 100 MG capsule Take [...] to 10 days. 30 capsule 3 01/08/20 25 025 Discontinued(Do se adjustment) Lancets miscIndication s:Prediabetes Use to test blood sugar one time daily 100 each 3 01/20/20 25 025 Discontinued(Re order (will not trigger notification to Pharmacy)) traMADol (Ultram) 50 MG tabletIndicati ons:Daily headache Take 1 tablet (50 mg) by mouth every 6 (six) hours if needed for severe pain for up to 1 day. 4 tablet 02/09/20 25 025 Active Problems Problem Noted Date Diagnosed Date [...] Description 02/08/2025 12:00 PM EDT Office Visit [facility] [phone] Aileen Howard DO Chronic pain of right upper extremity (Primary Dx); Paresthesia of right arm and leg; Paresthesia of tongue; Prediabetes; Anxiety; Daily headache; Abnormal brain MRI; Rash; Swelling of upper lip; Breast cyst, right 02/08/2025 Travel 02/05/2025 Refill [facility] [phone] Aileen Howard DO Prediabetes 02/05/2025 Telephone [facility] [phone] Aileen Howard DO Referral 02/03/2025 Telephone [facility] Matthews40 Aileen Howard DO Error (VOID this visit) 02/02/2025 Telephone [facility] Matthews40 Aileen Howard DO Results 02/02/2025 Orders Only [facility] Matthews40 Aileen Howard DO 01/29/2025 Travel 01/29/2025 Telephone [facility] [place] [address] Aileen Howard DO Referral 01/27/2025 11:15 AM EDT Office Visit [facility] Matthews40 Aileen Howard DO Essential hypertension (Primary Dx); Peripheral vascular disease (CMS/HCC); Prediabetes; Palpitations; Chronic pain of right upper extremity; Paresthesia of right arm and leg; Abnormal mammogram; Paresthesia of tongue; Anxiety; Daily headache; Abnormal brain MRI 01/27/2025 Patient Outreach [facility] [place] [address] Aileen Howard DO Care Coordination (CH[facility] outreach for SDOH PT-1 and food needs-referral completed /) 01/27/2025 Travel 01/27/2025 Population Health Risk Score [facility] () Department [address] [place] [phone] Provider, Population Health Generic 01/18/2025 Refill [facility] [address] [place] [phone] Aileen Howard DO Prediabetes 01/12/2025 Telephone [facility] [address] [place] [phone] Aileen Howard DO New patient appointment (Pt walked in requesting a new patient appt . Pt was seen by in walk in on 01/07/2025 and states told her she is willing to take her as a new patient due to her conditions . Pt can be reached at [phone].) 01/07/2025 9:00 AM EDT Office Visit [facility] [address] [place] [phone] Aileen Howard DO Essential hypertension (Primary Dx); Prediabetes; Palpitations; Chronic pain of right upper extremity; Paresthesia of right upper and lower extremity; Paresthesia of tongue; Abnormal mammogram; PVD (peripheral vascular disease) ([facility]) 01/07/2025 Orders Only [facility] [address] [place] [phone] Aileen Howard DO from Last 3 Months [...] 5 season) 2024 Influenza Vaccine (#1) 2024 Depression Screening 01/27/2026 01/27/2025, 01/27/2025 SDOH Screening 01/27/2026 01/27/2025 Mammogram 02/02/2026 02/02/2025, 02/02/2025, 01/13/2025 Diabetes: Hemoglobin A1C 02/08/2026 025, 01/08/2025 Tobacco Screening 02/08/2026 02/08/2025 Lipid Panel 01/08/2030 [...] 02/08/2025 1:43 PM EDT Abnormal brain MRI HEMOGLOBIN A1C Routine 02/08/2025 1:40 PM EDT Prediabetes BI US BREAST LIMITED BILATERAL Routine 02/02/2025 9:15 AM EDT BI MAMMOGRAM DIAGNOSTIC TOMOSYNTHESIS BILATERAL Routine 02/02/2025 8:31 AM EDT Abnormal mammogram [id number]-[id number] NG ENZYME Routine 01/29/2025 8:22 AM EDT [...] Narrative 02/08/2025 2:32 PM EDT ? [facility] ?[address] ?[place] [address] ?XRay Report ? Signed ? Patient: Margaux Menendez ?MR#: [id number] ?? 5471 ? : 1980 ?Acct:[id number] ? Age/Sex: 45 / F ?ADM Date: 02/08/25 ? Loc: HO.HHCL ? Attending Dr: Aileen Howard DO ? Ordering Physician: Aileen Howard DO ?? Date of Service: 02/08/25 ?? Procedure(s): XR chest 2V ?? Accession Number(s): [id number] ? cc: iAleen Howard DO ? EXAMINATION: ??XR CHEST 2 [...] signed by Dayron Yap MD in OV> ?// 1429 ? DD/ 1343 ? TD/TT: 02/08/ 1355 ? Returned Materials Inspector: ? Procedure Note Donotuseinterpreter, Image - 02/08/[address] [address] XRay Report Signed Patient: Margaux MenendezMR#: [id number] : 1980Acct:[id number] Age/Sex: 45 / FADM Date: 02/08/25 Loc: .[facility] Attending Dr: Aileen Howard DO Ordering Physician: Aileen Howard DO Date of Service: 02/08/25 Procedure(s): XR chest 2V Accession Number(s): [id number] cc: Aileen Howard DO EXAMINATION: XR CHEST [...] Dayron Yap MD 02/08/2025 02:29 PM EDT RP Dictated By: Dayron Yap MD Signed By: <Electronically signed by Dayron Yap MD in OV> 02/08/25 1429 DD/ 1343 TD/TT: 02/08/25 1355 Returned Materials Inspector: us Aileen Howard DO IMG XR PROCEDURES Edited Res ult - Final * (ABNORMAL) Hemoglobin A1c (02/08/2025 1:40 PM EDT) Only the most recent of2 resultswithin the time period is included. Hemoglobin A1c 6.2(H) <6.0 % [facility] Comment:Hemoglobin A1C Refer ence Range Adults: 4.8 - 6.0 % Non diabetic: < 6.0 % Goal: < 7.0 %Additional Action Suggested: > 8.0 %Note: Hemoglobin A1c results are invalid for patients with abnormal amounts of HbF. Blood transfusions may impact the HbA1c concentration in the patient sample. Estimated Average Glucose 131 mg/dL [facility] Comment:eAG = Estimated ave rage glucose which is %A1C expressed asaverage glucose, using the formula of the X6T-MebvbxpHywvixp Glucose study (ADAG), Diabetes Care, Vol.31,#8,Aug. 2007 Blood Venous blood specimen / Unknown 02/08/2025 1:40 PM EDT 02/08/2025 4:00 PM EDT us Aileen Lee DO LAB BLOOD ORDERABLES Final R esult [facility] [address] [place] [address] [phone] * BI US Breast Limited Bilateral (02/02/2025 9:15 AM EDT) Anatomical Region Laterality Modality Breast Bilateral Ultrasound 02/02/2025 9:15 AM EDT Narrative 02/02/2025 10:20 AM EDT ? [facility] [place] ? [address] ?[place] [address] ? Ultrasound Report ? Signed ? Patient: Margaux Menendez ?MR#: [id number] ?? 5471 ? : 1980 ?Acct:[id number] ? Age/Sex: 44 / F ?ADM Date: 02/02/25 ? Loc: HO.MAMMO ? Attending Dr: Aileen Howard DO ? Ordering Physician: Aileen Howard DO ?? Date of Service: 02/02/25 ?? Procedure(s): US breast BI limited mamm only ?? Accession Number(s): [id number] ? cc: Aileen Howard DO ? EXAMINATION: [...] ??Belle Araiza DO ??02/02/2025 10:17 AM EDT ?? RP ? Dictated By: ?Belle Araiza DO ? Signed By: ?<Electronically signed by Belle Araiza, DO in OV> ? 02/02/25 1017 ? DD/ 0915 ? TD/TT: 02/02/25 0931 ? Returned Materials Inspector: ? Procedure Note Ronnie, Dimitri - 02/02/2025 [place] [facility] [address] [place] [address] Ultrasound Report Signed Patient: Margaux Menendez#: [id number] : 1980Acct:[id number] Age/Sex: 44 / FADM Date: 02/02/25 Loc: HO.MAMMO Attending Dr: Aileen Howard DO Ordering Physician: Aileen Howard DO Date of Service: 02/02/25 Procedure(s): US breast BI limited mamm only Accession Number(s): [id number] cc: Aileen Howard DO EXAMINATION: MM DIAGNOSTIC [...] Belle Araiza DO 02/02/2025 10:17 AM EDT RP Dictated By: Belle Araiza DO Signed By: <Electronically signed by Belle Araiza DO in OV> 02/02/25 1017 DD/ 0915 TD/TT: 02/02/25 0931 Returned Materials Inspector: us Aileen Lee ANNA IMG US PROCEDURES Final Resu lt * BI Mammogram Diagnostic Tomosynthesis Bilateral (02/02/2025 8:31 AM EDT) Anatomical Region Laterality Modality Breast Bilateral Mammography 02/02/2025 8:31 AM EDT Narrative 02/02/2025 10:20 AM EDT ? [facility] [place] ? [address] ?[place] [address] ?[phone] ? Mammography Report ? Signed ? Patient: Menendez,Margaux ?MR#: [id number] ?? 5471 ? : 1980 ?Acct:[id number] ? Age/Sex: 44 / F ?ADM Date: 02/02/25 ? Loc: HO.MAMMO ? Attending Dr: Aileen Howard DO ? Ordering Physician: Alieen Howard DO ?Results: 2B ?? enign Findings ? Date of Service: 02/02/25 ?Follow Up: 1 Year From Orig ?? inal Mammogram ? Procedure(s): MM tomosynthesis diagnostic BI ?? Accession Number(s): [id number] ? cc: Aileen Howard DO ? EXAMINATION: [...] ??Belle Araiza DO ??02/02/2025 10:17 AM EDT ?? RP ? Dictated By: ?Belle Araiza DO ? Signed By: ?<Electronically signed by Belle Araiza, DO in OV> ? 02/02/25 1017 ? DD/ 0831 ? TD/TT: 02/02/25 0857 ? Returned Materials Inspector: ? Procedure Note Ronnie, Dimitri - 02/02/2025 [place] [facility] [address] [place] [address] Mammography Report Signed Patient: Margaux MenendezMR#: [id number] : 1980Acct:[id number] Age/Sex: 44 / FADM Date: 02/02/25 Loc: HO.MAMMO Attending Dr: Aileen Howard DO Ordering Physician: Aileen Howardults: 2B enign Findings Date of Service: 02/02/25Follow Up: 1 Year From Orig ina Mammogram Procedure(s): MM tomosynthesis diagnostic BI Accession Number(s): [id number] cc: Aileen Howard DO EXAMINATION: MM DIAGNOSTIC [...] 02/02/25 1017 DD/ 0831 TD/TT: 02/02/25 0857 Returned Materials Inspector: us Aileen Howard DO IMG BI PROCEDURES Final Resu lt * T-SPOT??.TB (01/29/2025 8:22 AM EDT) [facility] T Spot TB Negative Negative [facility] Comment:A negative test resu lt does [...] as aquantitative test. TS PANEL A 1 [facility] TS PANEL B 0 [facility] Negative Control Passed [facility] Positive Control Passed [facility] Comment:For additional infor shoshana, please refer tohttp://education.Copperfasten/faq/CDF815(This link is being provided for informational/educational purposes only.)THIS TEST WAS PERFORMED AT:[id number] [place] [phone] PEREZ MD,PHD 01/29/2025 8:22 AM EDT 01/29/2025 11:21 AM EDT us Aileen Howard DO LAB BLOOD ORDERABLES Final R esult [facility] [address] [place] [address] [phone] * Lyme Disease Ab with Reflex to Blot (IgG, IgM) (01/29/2025 8:22 AM EDT) Lyme Antibody Screen <0.90 index [facility] Comment:Index Interpretation ----- < 0.90 Negative [...] when erythemamigrans is apparent.THIS TEST WAS PERFORMED AT:[facility] [address] [address]NXZENJENNIFER MOSER MD Lyme Blot TNP [facility] 01/29/2025 8:22 AM EDT 01/29/2025 11:21 AM EDT Aileen Howard DO LAB BLOOD ORDERABLES Final R esult Performing Organization Address [facility] Co de Phone Number [facility] [address] [place] [phone] * Sed Rate by Modified Baldoren (01/29/2025 8:22 AM EDT) [facility] Erythrocyte Sedimentation Rate 14 0 - 20 MM/HR [facility] Comment:Patients with polycy themia and many hemoglobin abnormalitiesmay have depressed sed rates whereas patients with anemiamay have elevated sed rates. Blood Venous blood specimen / Unknown 01/29/2025 8:22 AM EDT 01/29/2025 11:21 AM EDT Aileen Lee LAB BLOOD ORDERABLES Final R esult Performing Organization Address [facility] Co de Phone Number [facility] [address] [place] [phone] * Rheumatoid Factor (01/29/2025 8:22 AM EDT) [facility] Rheumatoid Factor <13.0 <15.0 IU/mL [facility] Blood Venous blood specimen / Unknown 01/29/2025 8:22 AM EDT 01/29/2025 11:21 AM EDT Aileen Howard DO LAB BLOOD ORDERABLES Final R esult Performing Organization Address [facility] Co de Phone Number [facility] [address] [place] [phone] * Angiotensin -1- Converting Enzyme (01/29/2025 8:22 AM EDT) [facility] Angiotensin Converting Enzyme 19.5 9 - 67 U/L [facility] Comment:THIS TEST WAS PERFOR MED AT:[facility]/[address] [address]MCIUJCVMICHAEL PEREZ MD,PHD Blood Venous blood specimen / Unknown 01/29/2025 8:22 AM EDT 01/29/2025 11:21 AM EDT Aileen Howard LAB BLOOD ORDERABLES Final R esult Performing Organization Address [facility]/ZIP Co de Phone Number [facility] [address] [place] [phone] * (ABNORMAL) C-reactive Protein (01/29/2025 8:22 AM EDT) C Reactive Protein 2.49(H) < or = 0.50 mg/dL [facility] Blood Venous blood specimen / Unknown 01/29/2025 8:22 AM EDT 01/29/2025 11:21 AM EDT Aileen Haquepatt DO LAB BLOOD ORDERABLES Final R esult Performing Organization Address [facility] Co de Phone Number [facility] [address] [place] [phone] * BRENDAN Screen,IFA, with Reflex to Titer and Pattern (01/29/2025 8:22 AM EDT) Anti Nuclear Antibody Screen NEGATIVE NEGATIVE [facility] Comment:BRENDAN IFA is a first l [...] clinicallysuspected inflammatory myopathies.AC-0: NegativeInternational Consensus on BRENDAN Patterns(https://doi.org/10.1515/jllo-2820-2690)For additional information, please refer tohttp://education.QuestDiagnostics.com/faq/UCI368(This link is being provided for informational/educational purposes only.)THIS TEST WAS PERFORMED AT:[facility] [address] [address]WOZKNJENNIFER MOSER MD BRENDAN Titer TNP [facility] BRENDAN Pattern TNP [facility] BRENDAN TITER 2 (REF LAB) TNP [facility] BRENDAN Pattern 2 TNP [facility] BRENDAN TITER 3 TNP [facility] BRENDAN PATTERN 3 TNP [facility] Blood Venous blood specimen / Unknown 01/29/2025 8:22 AM EDT 01/29/2025 11:21 AM EDT us Aileen Howard DO LAB BLOOD ORDERABLES Final R esult [facility] [address] [place] [phone] * BI Mammogram Screening Tomosynthesis Bilateral (01/13/2025 8:45 AM EDT) Anatomical Region Laterality Modality Breast Bilateral Mammography 01/13/2025 8:45 AM EDT Narrative 01/13/2025 11:32 AM EDT ? [facility] [place] ? [address] ?[place] [address] ? Mammography Report ? Signed ? Patient: Menendez,Haideliz ?MR#: [id number] ?? [id number] ? : 1980 ?Acct:[id number] ? Age/Sex: 44 / F ?ADM Date: 03/19/25 ? Loc: HO.MAMMO ? Attending Dr: Aileen Howard DO ? Ordering Physician: Aileen Howard DO ?Results: 0I ?? ncomplete: Needs Additional Imaging Evaluation ? Date of Service: 01/13/25 ?Follow Up: Additional Imagi ?? ng ? Procedure(s): MM tomosynthesis screening BI ?? Accession Number(s): [id number] ? cc: Aileen Howard DO ? EXAMINATION: ?? MM SCREENING DIGITAL BREAST TOMOSYNTHESIS, BILATERAL ? CLINICAL INFORMATION: ? Screening. Asymptomatic. ??Right breast pain. Patient states she was ?? being followed in [place] for the right breast but cannot obtain [...] DD/ 0845 ? TD/TT: 01/13/25 0917 ? Returned Materials Inspector: ? Procedure Note Donpitoter, Image - 01/13/2025 [place] [facility] [address] [place] [address] Mammography Report Signed Patient: Margaux Menendez#: [id number] : 1980Acct:[id number] Age/Sex: 44 / FADM Date: 01/13/25 Loc: HO.MAMMO Attending Dr: Aileen Howard DO Ordering Physician: Aileen Howardults: 0I ncomplete: Needs Additional Imaging Evaluation Date of Service: 01/13/25Follow Up: Additional Imagi ng Procedure(s): MM tomosynthesis screening BI Accession Number(s): [id number] cc: Aileen Howard DO EXAMINATION: MM SCREENING DIGITAL BREAST TOMOSYNTHESIS, BILATERAL CLINICAL INFORMATION: Screening. Asymptomatic. Right breast pain. Patient states she was being followed in [place] for the right breast but cannot obtain [...] 01/13/25 1129 DD/ 0845 TD/TT: 01/13/25 0917 Returned Materials Inspector: us Aileen Howard DO IMG BI PROCEDURES Final Resu lt * MR Cervical Spine w/o Contrast (01/12/2025 7:30 PM EDT) Anatomical Region Laterality Modality Spine, C-spine Magnetic Resonan ce 01/12/2025 7:30 PM EDT Narrative 01/13/2025 8:56 AM EDT ? [facility] ?[address] ?[place] [address] ? Magnetic Resonance Report ? Signed ? Patient: Menendez,Haideliz ?MR#: [id number] ?? 5471 ? : 1980 ?Acct:[id number] ? Age/Sex: 44 / F ?ADM Date: 03/18/25 ? Loc: HO.MRI ? Attending Abdi Howard DO ? Ordering Physician: Aileen Howard DO ?? Date of Service: 01/12/25 ?? Procedure(s): MR cervical spine wo con ?? Accession Number(s): [id number] ? cc: Aileen Howard DO ? EXAMINATION: [...] ? DD/ 1930 ? TD/TT: 01/12/252000 ? Returned Materials Inspector: ? Procedure Note Dimitri Trujillo - 01/13/[address] [address] Magnetic Resonance Report Signed Patient: Margaux Menendez#: [id number] : 1980Acct:[id number] Age/Sex: 44 / FADM Date: 01/12/25 Loc: HO.MRI Attending Dr: Aileen Howard DO Ordering Physician: Aileen Howard DO Date of Service: 01/12/25 Procedure(s): MR cervical spine wo con Accession Number(s): [id number] cc: Aileen Howard DO EXAMINATION: MR CERVICAL [...] OV> 01/13/25 0853 DD/ 29 TD/TT: 01/12/252000 Returned Materials Inspector: Aileen Howard DO [facility] [place] PROCEDURES Final Res ult * MR Brain w/o Contrast (01/12/2025 7:14 PM EDT) Anatomical Region Laterality Modality Brain Magnetic Resonan ce 01/12/2025 7:14 PM EDT Narrative 01/13/2025 8:51 AM EDT ? [facility] ?[address] ?[place] [address] ? Magnetic Resonance Report ? Signed ? Patient: Menendez,Haideliz ?MR#: [id number] ?? 5471 ? : 1980 ?Acct:[id number] ? Age/Sex: 44 / F ?ADM Date: 01/12/25 ? Loc: HO.MRI ? Attending Dr: Aileen Howard DO ? Ordering Physician: Aileen Howard DO ?? Date of Service: 01/12/25 ?? Procedure(s): MR head/brain wo con ?? Accession Number(s): [id number] ? cc: Aileen Howard DO ? EXAMINATION: [...] in OV> ? 01/13/25 0848 ? DD/ ? TD/TT: 01/12/25 1944 ? Returned Materials Inspector: ? Procedure Note Donotuseinterpreter, Image - 01/13/[address] [address] Magnetic Resonance Report Signed Patient: Margaux MenendezMR#: [id number] 5471 : 1980Acct:[id number] Age/Sex: 44 / FADM Date: 01/12/25 Loc: HO.MRI Attending Dr: Aileen Howard DO Ordering Physician: Aileen Howard DO Date of Service: 01/12/25 Procedure(s): MR head/brain wo con Accession Number(s): [id number] cc: Aileen Howard DO EXAMINATION: MR BRAIN [...] <Electronically signed by Octaviano Blancas MDin OV> 01/13/2548 DD/ 13 TD/TT: 01/12/251943 Returned Materials Inspector: us Aileen Jurcsak DO IMG MRI PROCEDURES Final Res ult * Vitamin D, 25-Hydroxy, Total, Immunoassay (01/08/2025 8:10 AM EDT) Vitamin D 25-OH Total 41.9 >30 ng/mL [facility] Comment: Health Based Reference Values*< 20 ??ng/mL ??Fcirunyed23-52 ng/mL ??Insufficient> 30 ??ng/mL ??Sufficient*Britni FLORES. N [...] DO LAB BLOOD ORDERABLES Final R esult [facility] [address] [place] [phone] * Vitamin B12 (Cobalamin) and Folate Panel, Serum (01/08/2025 8:10 AM EDT) Vitamin B12 678 200 - 900 pg/mL [facility] Comment:NORMAL 200-900 PG/ML INDETERMINATE 160-199 PG/ML DEFICIENT < 160 PG/ML Folate 14.3 > or = 4.0 ng/mL [facility] Comment:Reference Values:> o r = 4.0 ng/mL< 4.0 ng/mL suggests folate deficiency Methotrexate, aminopterin and folinic acid(leucovorin) are chemotherapeutic agents whose molecularstructures are similar to folate; therefore, the Architectfolate assay cannot be used for patients using these drugs. Blood 01/08/2025 8:10 AM EDT 01/08/2025 11:15 AM EDT Aileen Howard LAB BLOOD ORDERABLES Final R esult Performing Organization Address [facility] Co de Phone Number [facility] [address] [place] [phone] * Albumin, Random Urine W/Creatinine (01/08/2025 8:10 AM EDT) Creatinine, Urine 140.84 mg/dL [facility] Microalbumin Urine 13.0 mg/L [facility] Microalbum Creatinine Ratio Ur 9.2 <30 ug/mg cr [facility] Comment:Albumin/Creatinine R atio Reference Ranges: Normal: < 30 ug/mg creatinine Microalbuminuria: 30 - 300 ug/mg creatinineClinical Albuminuria: > 300 ug/mg creatinine Urine (Urine, Random) 01/08/2025 8:10 AM EDT 01/08/2025 11:14 AM EDT Aileen Howard LAB URINE ORDERABLES Final R esult Performing Organization Address [facility] Co de Phone Number [facility] [address] [place] [phone] * (ABNORMAL) CBC auto differential (01/08/2025 8:10 AM EDT) White Blood Count 10.4 4.8 - 10.8 X10*3/uL [facility] Red Blood Count 5.14 4.20 - 5.50 X10*6/uL [facility] Hemoglobin 12.3 12.0 - 16.0 g/dl [facility] Hematocrit 41.0 37.0 - 47.0 % [facility] Mean Corpuscular Volume 79.8(L) 80.0 - 98.0 fL [facility] Mean Corpuscular Hemoglobin 23.9(L) 27.0 - 33.0 pg [facility] Mean Corpuscular HGB Conc 30.0(L) 31.0 - 35.0 g/dl [facility] Red Cell Distribution Width 14.7 11.0 - 16.0 % [facility] Platelet Count 431(H) 160 - 400 X10*3/uL [facility] Mean Platelet Volume 10.6 9.4 - 12.3 fL [facility] Neutrophils Percent Auto 75.6(H) 45 - 73 % [facility] Imm Gran Pct Auto 0.4 0.0 - 0.4 % [facility] Lymphocytes Percent Auto 16.2(L) 20 - 40 % [facility] Monocytes Percent Auto 6.0 2 - 11 % [facility] Eosinophils Percent Auto 1.4 0 - 4 % [facility] Basophils Percent Auto 0.4 0 - 2 % [facility] NRBC Pct Auto 0.0 0.0 - 0.2 /100WBC [facility] Neutrophils Absolute Auto 7.9 2.0 - 8.3 x10*3/uL [facility] Imm Gran Abs Auto 0.04(H) 0.00 - 0.03 X10*3/uL [facility] Lymphocytes Absolute Auto 1.7 1.2 - 4.9 X10*3/uL [facility] Monocytes Absolute Auto 0.6 0.1 - 1.2 X10*3/uL [facility] Eosinophils Absolute Auto 0.2 0.0 - 0.4 X10*3/uL [facility] Basophils Absolute Auto 0.0 0.0 - 0.2 X10*3/uL [facility] NRBC Abs Auto 0.000 0.0 - 0.012 X10*3/uL [facility] Blood Venous blood specimen / Unknown 01/08/2025 8:10 AM EDT 01/08/2025 11:15 AM EDT Aileen Howard LAB BLOOD ORDERABLES Final R esult Performing Organization Address [facility] Co de Phone Number [facility] [address] [place] [phone] * Hepatitis C Antibody with Reflex to HCV, RNA, Quantitative, Real-Time PCR (01/08/2025 8:10 AM EDT) Hepatitis C Antibody Nonreactive Nonreactive [facility] Comment:Antibodies to HCV no t detected; does not exclude early acuteHCV infection. Blood Venous blood specimen / Unknown 01/08/2025 8:10 AM EDT 01/08/2025 11:15 AM EDT Aileen Lee LAB BLOOD ORDERABLES Final R esult Performing Organization Address [facility] de Phone Number [facility] [address] [place] [phone] * (ABNORMAL) Iron And Total Iron Binding Capacity (01/08/2025 8:10 AM EDT) Iron 45 30 - 160 mcg/dL [facility] Total Iron Binding Capacity 340 228 - 428 mcg/dL [facility] Percent Iron Saturation 13(L) 15 - 50 % [facility] Unsaturated Iron Binding 295 ug/dL [facility] Blood Venous blood specimen / Unknown 01/08/2025 8:10 AM EDT 01/08/2025 11:15 AM EDT [facility] LAB BLOOD ORDERABLES Final R esult Performing Organization Address [facility] Co de Phone Number [facility] [address] [place] [address] [phone] * Hepatitis A Antibody, Total (01/08/2025 8:10 AM EDT) Hepatitis A Antibody IgG Nonreactive Nonreactive [facility] Blood Venous blood specimen / Unknown 01/08/2025 8:10 AM EDT 01/08/2025 11:15 AM EDT Aileen Howard DO LAB BLOOD ORDERABLES Final R esult [facility] [address] [place] [phone] * Chlamydia/N. Gonorrhoeae RNA, TMA, Urogenitial (01/08/2025 8:10 AM EDT) Pathologist [facility] [place] CT PCR NOT DETECTED Not Detect. [facility] Comment:A not detected test result does [...] psychologicalconsequences. NG PCR NOT DETECTED Not Detect. [facility] Comment:A not detected test result does [...] AM EDT 01/08/2025 11:14 AM EDT Narrative [facility] - 01/08/2025 2:27 PM EDT Urine us Aileen Howard DO LAB MICROBIOLOGY - GENERAL O RDERABLES Final Result Performing Organization Address [facility] Co de Phone Number [facility] [address] [place] [phone] * Hepatitis B surface antigen, EIA (01/08/2025 8:10 AM EDT) Hepatitis B Surface Ag Negative Negative [facility] Blood Venous blood specimen / Unknown 01/08/2025 8:10 AM EDT 01/08/2025 11:15 AM EDT Aileen Howard DO LAB BLOOD ORDERABLES Final R esult Performing Organization Address [facility] Co de Phone Number [facility] [address] [place] [phone] * Hepatitis B Core Antibody, Total (01/08/2025 8:10 AM EDT) Hepatitis B Core Antibody Nonreactive Nonreactive [facility] Blood Venous blood specimen / Unknown 01/08/2025 8:10 AM EDT 01/08/2025 11:15 AM EDT Aileen Howard DO LAB BLOOD ORDERABLES Final R esult Performing Organization Address [facility] Co de Phone Number [facility] [address] [place] [address] [phone] * RPR (Monitor) with Reflex to??Titer (01/08/2025 8:10 AM EDT) RPR (Monitor) w/Refl Titer NON-REACTI VE NON-REACT BOOGIE [facility] Comment:THIS TEST WAS PERFOR MED AT:[employer] [place] [id number] MOSER MD Rapid Plasma Reagin Ab Titer TNP [facility] Blood Venous blood specimen / Unknown 01/08/2025 8:10 AM EDT 01/08/2025 11:15 AM EDT Aileen Howard [employer] LAB BLOOD ORDERABLES Final R esult [facility] [address] [place] [phone] * HIV-1/2 Antigen and Antibodies, Fourth Generation, with Reflexes (01/08/2025 8:10 AM EDT) HIV AB/AG Nonreactive Nonreactive [facility] Comment:HIV-1 p24 Ag and/or HIV-1/HIV-2 Ab not detected.A test result that is nonreactive does not exclude thepossibility of exposure to or infection with HIV-1 and/orHIV-2. Nonreactive results in this assay for individualswith prior exposure to HIV-1 and/or HIV-2 may be due toantigen and antibody levels that are below the limit ofdetection of this assay.The [employer] HIV Ag/Ab Combo assay result andsupplemental assay results should be interpreted inconjunction with the patient's clinical presentation,history and other laboratory results. If the results areinconsistent with clinical evidence, additional testing issuggested to confirm the result. Blood Venous blood specimen / Unknown 01/08/2025 8:10 AM EDT 01/08/2025 11:15 AM EDT us Aileen Howard DO LAB BLOOD ORDERABLES Final R esult [facility] [address] [place] [address] [phone] * Hepatitis B Surface Antibody, Qualitative (01/08/2025 8:10 AM EDT) ~Hepatitis B Surface Antibody NONREACTIVE Nonreactive [facility] Comment:Nonreactive: < 8.00 mIU/mL Blood Venous blood specimen / Unknown 01/08/2025 8:10 AM EDT 01/08/2025 11:15 AM EDT us Aileen Howard DO LAB BLOOD ORDERABLES Final R esult Performing Organization Address [facility] Co de Phone Number [facility] [address] [place] [address] [phone] * TSH (01/08/2025 8:10 AM EDT) Pathologist [facility] [place] Thyroid Stimulating Hormone 2.39 0.32 - 4.0 uIU/mL [facility] Comment:TSH 3rd Generation ( [facility]) Blood Venous blood specimen / Unknown 01/08/2025 8:10 AM EDT 01/08/2025 11:15 AM EDT us Aileen Howard DO LAB BLOOD ORDERABLES Final R esult Performing Organization Address [facility] Co de Phone Number [facility] [address] [place] [address] [phone] * T4, Free (01/08/2025 8:10 AM EDT) Free T4 (Free Thyroxine) 0.91 0.71 - 1.85 ng/dL [facility] Blood Venous blood specimen / Unknown 01/08/2025 8:10 AM EDT 01/08/2025 11:15 AM EDT us Aileen Howard DO LAB BLOOD ORDERABLES Final R esult [facility] [address] [place] [address] [phone] * Ferritin (01/08/2025 8:10 AM EDT) Pathologist [facility] [place] Ferritin 25 10 - 250 ng/mL [facility] Blood Venous blood specimen / Unknown 01/08/2025 8:10 AM EDT 01/08/2025 11:15 AM EDT us Aileen Howard DO LAB BLOOD ORDERABLES Final R esult Performing Organization Address [facility] Co de Phone Number [facility] [address] [place] [address] [phone] * Hepatic Function Panel (01/08/2025 8:10 AM EDT) Pathologist [facility] [place] Bilirubin, Total 0.9 0.0 - 1.0 mg/dL [facility] Bilirubin, Direct 0.3 0.0 - 0.5 mg/dL [facility] Aspartate Amino Transferase 18 5 - 31 U/L [facility] Alanine Aminotransferase 20 0 - 31 U/L [facility] Total Protein 7.9 6.5 - 8.0 g/dL [facility] Albumin Level 4.2 3.5 - 5.0 g/dL [facility] Alkaline Phosphatase 91 39 - 117 U/L [facility] Blood Venous blood specimen / Unknown 01/08/2025 8:10 AM EDT 01/08/2025 11:15 AM EDT us Aileen Howard DO LAB BLOOD ORDERABLES Final R esult Performing Organization Address City/[facility]/ZIP Co de Phone Number [facility] [address] [place] [address] [phone] * (ABNORMAL) Lipid Panel, Standard (01/08/2025 8:10 AM EDT) Pathologist [facility] [place] Triglycerides 77 <150 mg/dL [facility] Comment:Desirable Triglyceri de: less than 150 mg/dLBorderline High Triglyceride 150-199 mg/dLHigh Triglyceride: 200-499 mg/dLVery High Triglyceride: greater than or equal to 5OO mg/dL Cholesterol 200(H) <200 mg/dL [facility] Comment:Desirable Cholestero l: less than 200 mg/dLBorderline High Cholesterol: 200-239 mg/dLHigh Cholesterol: greater than 239 mg/dL LDL Cholesterol Calculated 125(H) <100 mg/dL [facility] Comment:Desirable LDL: less than 100 mg/dLNear Optimal/Above Optimal LDL: 110- 129 mg/dLBorderline High LDL: 130-159 mg/dLHigh LDL: 160-189 mg/dLVery High LDL: greater than or equal to 190 mg/dL HDL Cholesterol 60 >40 mg/dL [facility] Comment:Desirable HDL: great er than 40 mg/dL Note: This HDL assay may give artificially low results in patients with liver disease. Blood Venous blood specimen / Unknown 01/08/2025 8:10 AM EDT 01/08/2025 11:15 AM EDT us Aileen Howard DO LAB BLOOD ORDERABLES Final R esult [facility] [address] [place] [address] [phone] * (ABNORMAL) Basic Metabolic Panel (01/08/2025 8:10 AM EDT) Sodium 140 135 - 145 mmol/L [facility] Potassium 4.2 3.3 - 5.1 mmol/L [facility] Chloride 104 96 - 108 mmol/L [facility] Carbon Dioxide 28 22 - 29 mmol/L [facility] Anion Gap 12 12 - 20 [facility] Urea Nitrogen (BUN) 19(H) 9 - 16 mg/dL [facility] Creatinine, Serum 0.63 0.5 - 1.4 mg/dL [facility] Estimated Glomerular Filt Rate >60 [facility] Comment:Chronic Kidney Disea se: Estimated GFR < 60 mL/min/[id number] Kidney Disease: Estimated GFR < 15 mL/min/1.73m2 Glucose 130(H) 60 - 115 mg/dL [facility] Calcium 9.3 8.4 - 10.2 mg/dL [facility] Blood Venous blood specimen / Unknown 01/08/2025 8:10 AM EDT 01/08/2025 11:15 AM EDT us Aileendonna Haquepatt DO LAB BLOOD ORDERABLES Final R esult [facility] [address] [place] [phone] * XR CERVICAL SPINE 3V (01/07/2025 9:54 AM EDT) Anatomical Region Laterality Modality Abdomen Radiographic Lynette ging 01/07/2025 9:54 AM EDT Narrative 01/07/2025 10:41 AM EDT ?[facility] ?[address] ?[place] [address] ?XRay Report ? Signed ? Patient: Margaux Menendez ?MR#: [id number] ?? [id number] ? : 1980 ?Acct:[id number] ? Age/Sex: 44 / F ?ADM Date: 01/07/25 ? Loc: HO.HHCX ? Attending Dr: Aileen Howard DO ? Ordering Physician: Aileen Howard DO ?? Date of Service: 01/07/25 ?? Procedure(s): XR cervical spine 3V ?? Accession Number(s): [id number] ? cc: Aileen Howard DO ? EXAMINATION: [...] DD/ 0954 ? TD/TT: 01/07/25 1000 ? Returned Materials Inspector: ? Procedure Note Donpitoter, Image - 01/07/2025 [place] [address] XRay Report Signed Patient: Margaux MenendezMR#: [id number] : 1980Acct:[id number] Age/Sex: 44 / FADM Date: 01/07/25 Loc: HO.HHCX Attending Dr: Aileen Howard DO Ordering Physician: Aileen Howard DO Date of Service: 01/07/25 Procedure(s): XR cervical spine 3V Accession Number(s): [id number] cc: Aileen Howard DO EXAMINATION: XR CERVICAL [...] 01/07/25 1039 DD/ 0954 TD/TT: 01/07/25 1000 Returned Materials Inspector: Aileen Howard DO IMG XR PROCEDURES Edited Res ult - Final from Last 3 Months Insurance [facility] C[facility] Care Teams Rn Hemodialysis Relationship Specialty Start Date End Date Aileen Howard DO [address] [place] [address] PCP - General Family Medicine 01/18/25
== END 2025-02-10 11:04 | disposition home or self-care (01) ==
LOC: HO.NEURO 11:03
PROVIDERS: PCP Family Medicine; Visit Provider Family Medicine
DX: R20.2 Paresthesia of skin (principal); R20.0 Anesthesia of skin
CPT/HCPCS: 95860; 95886; 95911

== ENCOUNTER → 2025-02-10 11:11 | Outpatient (BNV) | payer MEDICAID, SELFPAY | PROVIDERS: PCP Family Medicine; Visit Provider Physical Medicine & Rehabilitation | DX: G56.01 Carpal tunnel syndrome, right upper limb (principal); R20.0 Anesthesia of skin; R20.2 Paresthesia of skin; M79.604 Pain in right leg | CPT/HCPCS: 95886; 95911 ==